=== PATIENT | female | born 1985 | race Caucasian/White ===

== ENCOUNTER 2018-08-02 12:33 | Outpatient (CLI) | payer MEDICAID, SELFPAY ==
[2018-08-02 14:10] LABS: Anion Gap 10.4 mmol/L (3-11); BUN 23 mg/dL (7-18); CO2 28.6 mmol/L (21.0-32.0); CREATININE 1.22 mg/dL (0.55-1.02); Calcium 9.4 mg/dL (8.5-10.1); Chloride 102 mmol/L (98-107); Estimated GFR 50.45 (mL/min/1.73m2); FREE T4 0.59 ng/dL (0.76-1.46); Glucose 92 mg/dL (70-100); Potassium 3.9 mmol/L (3.5-5.1); Sodium 141 mmol/L (136-145); TSH 29.25 uIU/mL (0.358-3.74)
[2018-08-02 14:26] LABS: Cholesterol 153 mg/dL (50-200); HDL Cholesterol 51 mg/dL (40-60); LDL CHOLESTEROL 75 mg/dL (<100); Triglyceride 153 mg/dL (30-150)
== END 2018-08-02 12:53 ==
PROVIDERS: PCP Nurse Practitioner Family; Visit Provider Nurse Practitioner Family
DX: E03.9 Hypothyroidism, unspecified (principal); Z13.220 Encounter for screening for lipoid disorders
CPT/HCPCS: 36415; 80048; 80061; 83721; 84439; 84443

== ENCOUNTER 2019-05-11 08:13 | Outpatient (CLI) | payer MEDICAID, SELFPAY ==
[2019-05-11 13:35] LABS: ALT 24 U/L (14-59); AST 17 U/L (15-37); Albumin 4.2 g/dL (3.4-5.0); Alkaline Phosphatase 65 U/L (46-116); BUN 13 mg/dL (7-18); Bilirubin, Total 0.5 mg/dL (0.2-1.0); CREATININE 0.96 mg/dL (0.55-1.02); Calcium 8.9 mg/dL (8.5-10.1); Chloride 106 mmol/L (98-107); FREE T4 1.07 ng/dL (0.76-1.46); Glucose 88 mg/dL (70-100); Potassium 4.8 mmol/L (3.5-5.1); Sodium 142 mmol/L (136-145); TSH 2.32 uIU/mL (0.36-3.74); Total Protein 7.5 g/dL (6.4-8.2)
== END 2019-05-11 08:33 ==
PROVIDERS: PCP Nurse Practitioner Family; Visit Provider Nurse Practitioner Family
DX: E03.9 Hypothyroidism, unspecified (principal)
CPT/HCPCS: 36415; 80053; 84439; 84443

== ENCOUNTER 2019-07-20 18:29 | Outpatient (REF) | payer MEDICAID, SELFPAY ==
--- NOTE | 2019-07-20 16:30 | PAPFT_PTH ---
PATIENT: Yamilet Lema LOC: [facility] U#:[id number] AGE/SX: 34/F ROOM: RE07/20/[address]: EDY White : 1985 BED: DIS: 07/20/2019 SPEC #: [id number] RECD: 07/20/19 18:43 STATUS: RANDI RELloyd #: [id number] ROSMERY: 07/20/19 16:[address]: Melanie Camarillo DEPT: [facility] Cytology RECD BY: Muna Negron Tissues: 1 - CX/ENDOCX FOR PAP SMEARS Procedures: PAP THIN PREP/UVM Screening HPV DNA PROBE Comments: [id number]
== END 2019-07-20 18:49 ==
LOC: LBN 18:29
PROVIDERS: PCP Nurse Practitioner Family; Visit Provider Nurse Practitioner Family
DX: Z12.4 Encounter for screening for malignant neoplasm of cervix (principal)
CPT/HCPCS: 88142; 87624

== ENCOUNTER 2021-04-24 01:11 | Outpatient (CLI) | payer MEDICAID, SELFPAY ==
[2021-04-24 12:37] LABS: Hemoglobin A1C 5.2 % (<5.7)
[2021-04-24 12:52] LABS: Anion Gap 5.2 mmol/L (3-11); BUN 19 mg/dL (7-18); CO2 30.8 mmol/L (21.0-32.0); CREATININE 1.3 mg/dL (0.55-1.02); Calcium 9.2 mg/dL (8.5-10.1); Chloride 107 mmol/L (98-107); Estimated GFR 46.09 (mL/min/1.73m2); FREE T4 0.47 ng/dL (0.76-1.46); Glucose 76 mg/dL (74-106); Potassium 3.9 mmol/L (3.5-5.1); Sodium 143 mmol/L (136-145)
[2021-04-24 12:57] LABS: TSH 37.95 uIU/mL (0.36-3.74)
== END 2021-04-24 01:12 | disposition home or self-care (01) ==
LOC: LOS 01:11
PROVIDERS: PCP Nurse Practitioner Family; Visit Provider Nurse Practitioner Family
DX: E03.9 Hypothyroidism, unspecified (principal)
CPT/HCPCS: 36415; 80048; 83036; 84439; 84443

== ENCOUNTER 2021-06-26 14:18 | Outpatient (REF) | payer MEDICAID, SELFPAY ==
[2021-06-29 15:47] LABS: Chlamydia Result Negative (Negative); GC Result Negative (Negative)
== END 2021-06-26 14:19 | disposition home or self-care (01) ==
LOC: LBN 14:18
PROVIDERS: PCP Nurse Practitioner Family; Visit Provider Nurse Practitioner Family
DX: Z11.3 Encounter for screening for infections with a predominantly sexual mode of transmission (principal)
CPT/HCPCS: 87491; 87591

== ENCOUNTER 2022-09-15 11:35 | Outpatient (CLI) | payer MEDICAID, SELFPAY ==
[2022-09-15 12:30] LABS: Abs Immature Grans 0.05 10^3/uL (0.0-0.06); Absolute Basophil Count 0.04 10^3/uL (0.0-0.2); Absolute Eosinophil Count 0.29 10^3/uL (0.0-0.7); Absolute Lymphocyte Count 2.16 10^3/uL (1.2-3.4); Absolute Monocyte Count 0.37 10^3/uL (0.1-0.8); Basophils % 0.5; HCT 42.4 % (36.0-46.0); Immature Grans % 0.7; Lymphocytes % 29.5; MCH 30.5 pg (27.0-33.0); MCV 92 fL (80-95); MPV 9.9 fL (8.0-11.0); Monocytes % 5.1; Neutrophils % 60.2; Platelet Count 276 10^3/uL (130-400); RBC 4.59 10^6/uL (3.93-5.22); RDW 13.6 % (11.7-14.6); RDW-SD 45.6 fL; WBC 7.31 10^3/uL (4.4-10.8)
[2022-09-15 12:49] LABS: ALT 26 U/L (14-59); AST 24 U/L (15-37); Albumin 4.5 g/dL (3.4-5.0); Alkaline Phosphatase 80 U/L (46-116); Anion Gap 6.8 mmol/L (3-11); BUN 16 mg/dL (7-18); Bilirubin, Total 1.1 mg/dL (0.2-1.0); CO2 31.2 mmol/L (21.0-32.0); CREATININE 1.2 mg/dL (0.55-1.02); Calcium 9.2 mg/dL (8.5-10.1); Calculated LDL 89 mg/dL (<100); Chloride 99 mmol/L (98-107); Cholesterol 230 mg/dL (<200); Estimated GFR 59.42 (mL/min/1.73m2); Glucose 87 mg/dL (74-106); HDL Cholesterol 80 mg/dL (40-60); Potassium 4.3 mmol/L (3.5-5.1); Sodium 137 mmol/L (136-145); TSH (W/Ref FT4) 69.59 uIU/mL (0.36-3.74); Total Protein 8.4 g/dL (6.4-8.2); Triglyceride 305 mg/dL (<150)
[2022-09-15 13:07] LABS: FREE T4 0.42 ng/dL (0.76-1.46)
== END 2022-09-15 11:36 | disposition home or self-care (01) ==
PROVIDERS: PCP Nurse Practitioner Family; Visit Provider Nurse Practitioner Family
DX: E03.9 Hypothyroidism, unspecified (principal); N93.9 Abnormal uterine and vaginal bleeding, unspecified
CPT/HCPCS: 36415; 80053; 80061; 84439; 84443; 85025

== ENCOUNTER 2022-09-15 12:23 | Outpatient (REF) | payer MEDICAID, SELFPAY ==
--- NOTE | 2022-09-15 11:00 | PAPFT_PTH ---
PATIENT: Yamilet Lema LOC: [facility] U#:[id number] AGE/SX: 37/F ROOM: RE09/15/[address]: EDY White : 1985 BED: DIS: 09/15/2022 SPEC #: [id number] RECD: 09/16/22 12:50 STATUS: RANDI RELloyd #: [id number] ROSMERY: 09/15/22 11:[address]: Melanie Camarillo DEPT: [facility] Cytology RECD BY: Muna Negron Tissues: 1 - CX/ENDOCX FOR PAP SMEARS Procedures: PAP THIN PREP/UVM Screening HPV DNA PROBE Comments: [id number]
== END 2022-09-15 12:24 | disposition home or self-care (01) ==
LOC: LBN 12:23
PROVIDERS: PCP Nurse Practitioner Family; Visit Provider Nurse Practitioner Family
DX: Z12.4 Encounter for screening for malignant neoplasm of cervix (principal); Z11.51 Encounter for screening for human papillomavirus (HPV)
CPT/HCPCS: 88142; 87624

== ENCOUNTER 2022-09-17 07:59 | Outpatient (CLI) | payer MEDICAID, SELFPAY ==
--- NOTE | 2022-09-17 08:00 | RT.EKG_ITS ---
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
== END 2022-09-17 08:00 | disposition home or self-care (01) ==
LOC: CARDOPNVT 07:59
PROVIDERS: PCP Nurse Practitioner Family; Visit Provider Family Medicine
DX: Z51.81 Encounter for therapeutic drug level monitoring (principal)
CPT/HCPCS: 93005; 93010

== ENCOUNTER 2022-10-15 21:47 | Outpatient (REF) | payer MEDICAID, SELFPAY ==
[2022-10-15 22:08] LABS: Bilirubin Negative (Negative); Blood Negative (Negative); Clarity Cloudy (Clear); Glucose Negative (Negative); Ketones Negative (Negative); Leukocyte Esterase Negative (Negative); Nitrite Negative (Negative); Urobilinogen 0.2 mg/dL (Up to 0.2)
== END 2022-10-15 21:48 | disposition home or self-care (01) ==
LOC: LBN 21:47
PROVIDERS: PCP Nurse Practitioner Family; Visit Provider Nurse Practitioner Family
DX: R61 Generalized hyperhidrosis (principal)
CPT/HCPCS: 81003

== ENCOUNTER 2022-10-19 01:37 | Outpatient (CLI) | payer MEDICAID, SELFPAY ==
--- NOTE | 2022-10-19 07:14 | DI.US_ITS ---
Exam(s) US ABDOMEN RENAL EXAM: US ABDOMEN RENAL CLINICAL HISTORY: abdominal pain TECHNIQUE: Ultrasound abdomen performed using standard protocol. COMPARISON: US ABDOMEN ULTRASOUND from 01/16/2010 FINDINGS: LIVER: Mildly enlarged at 17 cm in length. Mild fatty infiltration.. No focal liver lesions are see n.. GALLBLADDER: No evidence of cholelithiasis. No evidence of wall thickening. No pericholecystic fluid identified. HUMPHREY'S SIGN: Negative. BILIARY SYSTEM: No intrahepatic or extrahepatic biliary ductal dilation. KIDNEYS: Kidneys are symmetric in size. No evidence of renal calculi. No evidence of hydronephrosis. No renal mass or cyst identified. PANCREAS: Normal where visualized. SPLEEN: Not enlarged. ABDOMINAL AORTA AND IVC: Visualized portions normal caliber. ASCITES: None seen. Bladder: No evidence of wall thickening, stone or mass. Prevoid bladder volume 150 cc. No significa nt postvoid residual. Bilateral ureteral jets were visualized. IMPRESSION: Mildly enlarged liver with mild hepatic steatosis. No evidence of gallstones. Kidneys and bladder are unremarkable. DATA REPOSITORY:
== END 2022-10-19 01:57 ==
PROVIDERS: PCP Nurse Practitioner Family; Visit Provider Nurse Practitioner Family
DX: R10.9 Unspecified abdominal pain (principal); R16.0 Hepatomegaly, not elsewhere classified; K76.0 Fatty (change of) liver, not elsewhere classified
CPT/HCPCS: 76770; 76700

== ENCOUNTER 2022-11-29 19:40 | Outpatient (REF) | payer MEDICAID, SELFPAY ==
[2022-11-29 21:42] LABS: Bilirubin Negative (Negative); Blood Moderate (Negative); Clarity Sl Cloudy (Clear); Glucose Negative (Negative); Ketones Negative (Negative); Leukocyte Esterase Negative (Negative); Nitrite Negative (Negative); Specific Gravity >= 1.030 (1.005-1.025); Urobilinogen 0.2 mg/dL (Up to 0.2); pH 5.5 (5-8)
[2022-11-29 22:19] LABS: Bacteria Moderate HPF (Negative); C & S Indicated? C&S Done As Ordered; Crystals Negative HPF (Negative); Epithelial Cells Few HPF (Negative); Mucus Negative (Negative); Other Cells Rare Renal (Negative)
== END 2022-11-29 19:41 | disposition home or self-care (01) ==
LOC: LBN 19:40
PROVIDERS: PCP Nurse Practitioner Family; Visit Provider Physician Assistant
DX: R30.0 Dysuria (principal); I10 Essential (primary) hypertension; N39.0 Urinary tract infection, site not specified
CPT/HCPCS: 81003; 81015; 87086

== ENCOUNTER 2022-11-30 12:06 | Outpatient (CLI) | payer MEDICAID, SELFPAY ==
[2022-11-30 09:31] LABS: Eosinophils % 4.3; HCT 42.4 % (36.0-46.0); HGB 14.4 g/dL (11.2-15.7); MCH 31.9 pg (27.0-33.0); MCV 94 fL (80-95); MPV 9.8 fL (8.0-11.0); Monocytes % 4.5; Neutrophils % 56.8; Platelet Count 265 10^3/uL (130-400); RBC 4.51 10^6/uL (3.93-5.22); RDW 13.9 % (11.7-14.6); RDW-SD 48.1 fL; WBC 6.22 10^3/uL (4.4-10.8)
[2022-11-30 09:32] LABS: Abs Immature Grans 0.04 10^3/uL (0.0-0.06); Absolute Basophil Count 0.05 10^3/uL (0.0-0.2); Absolute Eosinophil Count 0.27 10^3/uL (0.0-0.7); Absolute Lymphocyte Count 2.05 10^3/uL (1.2-3.4); Absolute Monocyte Count 0.28 10^3/uL (0.1-0.8); Absolute Neutrophil Count 3.53 10^3/uL (1.2-6.7); Basophils % 0.8; Immature Grans % 0.6
[2022-11-30 10:25] LABS: ALT 37 U/L (14-59); AST 32 U/L (15-37); Albumin 3.9 g/dL (3.4-5.0); Alkaline Phosphatase 88 U/L (46-116); Anion Gap 10.3 mmol/L (3-11); BUN 18 mg/dL (7-18); Bilirubin, Total 0.5 mg/dL (0.2-1.0); CO2 28.7 mmol/L (21.0-32.0); CREATININE 1.1 mg/dL (0.55-1.02); Calcium 8.7 mg/dL (8.5-10.1); Chloride 101 mmol/L (98-107); Estimated GFR 65.96 (mL/min/1.73m2); Glucose 101 mg/dL (74-106); Potassium 3.7 mmol/L (3.5-5.1); Sodium 140 mmol/L (136-145); Total Protein 8.3 g/dL (6.4-8.2)
[2022-11-30 10:54] LABS: TSH (W/Ref FT4) 31.62 uIU/mL (0.36-3.74)
[2022-11-30 11:20] LABS: FREE T4 0.58 ng/dL (0.76-1.46)
[2022-12-01 10:06] LABS: HIV-1/2 Ag & Ab Screen Negative (Negative)
[2022-12-01 10:19] LABS: Hepatitis C Ab w Rflx HCV PCR Negative (Negative)
== END 2022-11-30 12:07 | disposition home or self-care (01) ==
LOC: LBO 12:07
PROVIDERS: PCP Nurse Practitioner Family; Visit Provider Physician Assistant
DX: E03.9 Hypothyroidism, unspecified (principal); I10 Essential (primary) hypertension; R61 Generalized hyperhidrosis; Z11.4 Encounter for screening for human immunodeficiency virus [HIV]; Z11.59 Encounter for screening for other viral diseases; E78.5 Hyperlipidemia, unspecified
CPT/HCPCS: 36415; 80053; 86803; 87040; 87389; 84439; 84443; 85025

== ENCOUNTER 2023-01-04 15:05 | Emergency (ER) | payer MEDICAID, SELFPAY ==
[2023-01-04] VITALS (51 sets, daily range): BP systolic 140–178; BP diastolic 88–119; PULSE 86–92; RESP 12–24; TEMP 36.5; O2SAT 100
--- NOTE | 2023-01-04 15:00 | RT.EKG_ITS ---
APPROVED REPORT Exam: Resting ECG Reason for Exam: chest pain Patient Location: E HR:82 bpm ECG Measurements Heart Rate 82 AXIS VT 161 P 42 QRSd 90 QRS 21 QT 397 T -20 QTc 464 Conclusion Sinus rhythm...normal P axis, V-rate 60- 99 Probable left atrial enlargement...P >50mS, <-0.10mV V1 Nonspecific T abnormalities, anterior leads...T <-0.10mV, V2-V4 Narrow complex normal sinus rhythm at a rate of 82. Normal axis. T wave inversions leads III, aVF, V3 and V4. Mild ST segment depressions left chest wall leads. Compared to prior dated earlier this year T wave inversions in lead aVF, V3 and V4 are new. Mild ST segment depressions in V4 and V5 appe ar similar. QTc within normal limits.
--- NOTE | 2023-01-04 15:05 | ED.GENADUL_ITS ---
Discharge Plan Disposition Patient Disposition: Transfer-Acute Inpatient Care Specific Acute Inpt Facility: [facility] Discharge Details Clinical Impression: Acute epigastric pain, Elevated LFTs, Acute hemorrhagic pancreatitis, Acute lactic acidosis, Hypocalcemia Primary Care Provider: Melanie Camarillo ED Provider: Dino New Home Meds and New Rx's Prescriptions: No Action methadone 10 mg/5 mL solution 130 mg PO DAILY losartan 100 mg tablet 100 mg PO DAILY Qty: 90 3RF famotidine 20 mg tablet 20 mg PO DAILY Qty: 90 0RF amlodipine 5 mg tablet 5 mg PO DAILY Qty: 90 3RF epinephrine 0.3 mg/0.3 mL auto-injector 0.3 mg IM ONCE Qty: 1 2RF Rx Instructions: as a single dose; may repeat once levothyroxine 125 mcg capsule 125 mcg PO DAILY Qty: 90 0RF promethazine 12.5 mg tablet 12.5 - 25 mg PO TID PRN (Reason: nausea and vomiting) Qty: 90 0RF Discharge Data Discharge Date/Time-TO BE ENTERED AT DEPARTURE: 01/04/23 19:10 Medical Decision Making This is a hypertensive & uncomfortable appearing 37-year-old female now with acute sudden onset sharp epigastric pain concerning for the possibility of aortic dissection. She did have some ECG depressions and given her elevated BMI it ACS is also a possibility though the patient lacks risk factors beyond hypertension and obesity. No rash to abdomen to suggest zoster. No history of recent trauma. Based on elevated BMI pancreatitis is certainly also a possibility though patient is not reportedly a heavy drinker. Not recently to suggest splenic arterial aneurysm. She has a remote history of section so SBO is also a possibility. No reported shortness of breath nor chest pain to suggest PE. No dysuria no frequency to suggest UTI. No calf pain so I am not concerned for DVT. 4:10 PM Lipase mildly elevated at 169. Negative troponin. Elevated anion gap. Very mild hyperglycemia not consistent with DKA. Patient does have a decreased bicarbonate concerning for lactic acidosis. Patient still nauseous for left I will order her 500 additional cc of crystalloid along with 10 mg of metoclopramide. hCG negative. CBC with no anemia thrombocytopenia nor leukocytosis. 5:15 PM Lactic acidosis with a serum lactate of 3.4. 5:30 PM I received a call from the blood bank and patient can only receive reportedly O- blood. Unfortunate we do not have any O- blood until 7 PM this evening. 5:52 PM Repeat hemoglobin slightly down trended to 14.5 from 15.5 following 1 L of IV fluids. [facility] gastroenterology has advised surgical consult which transfer center will complete. 6:05 PM I received call back from [facility] transfer center and spoke with Dr. Familia Verma from general surgery. He graciously agreed to accept the patient to the emergency department at [facility]. I have ordered her additional fentanyl and started her on maintenance fluids at 150 cc an hour. We will update patient on the plan of care. We will attempt to have the patient transferred via medic. Lactate improved from 3.4-2.3 with fluids. Basic metabolic panel showed mild worsened renal function but similar to prior. Improved anion gap. Normal bicarbonate. Worsened hypocalcemia for which patient will receive 2 g of IV calcium gluconate. Chronic conditions affecting the care of the patient: Hypertension and elevated BMI History obtained from an outside historian: Paramedics External record review: [facility] EMR Diagnostic interpretations performed by me: Per my independent interpretation EKG shows: Narrow complex normal sinus rhythm at a rate of 82. Normal axis. T wave inversions leads III, aVF, V3 and V4. Mild ST segment depressions left chest wall leads. Compared to prior dated earlier this year T wave inversions in lead aVF, V3 and V4 are new. Mild ST segment depressions in V4 and V5 appear similar. QTc within normal limits. Medications: Hydromorphone and ondansetron. Social determinants of health affecting disposition: N/A Management discussed with: Dr. Verma general surgery at [facility] Treatment/interventions considered: Conservative local hospitalization but transferred in the event the patient requires IR intervention. Response to therapies provided: Improved pain on IV analgesia HPI General Date/Time Provider Initiated Documentation: 01/04/23 15:17 . HPI Narrative: This is a 37-year-old female with a history of epigastric pain that began this morning. Patient describes sudden onset sharp epigastric pain. It caused her to vomit 3 times this morning. She has not had any recent fevers. She denies any diarrhea. Surgical history significant for remote section. She has a history of hypertension but not hyperlipidemia nor diabetes. She denies routine tobacco, she reports rarely drinking ethanol. She describes a sharp stabbing tightness. She received 100 mcg of fentanyl and 4 mg of ondansetron with paramedics. She denies dysuria and frequency. She has taken no falls to her abdomen. She has no chest pain. There is no family history of any premature coronary artery disease. She has not noticed any rashes to her abdomen. Related Data Home Medications Medication Instructions Recorded Confirmed epinephrine 0.3 mg/0.3 mL 0.3 mg (0.3 mL) IM ONCE #1 ea 07/30/20 01/04/23 injection, auto-injector methadone 10 mg/5 mL oral solution 130 mg PO DAILY 09/15/22 01/04/23 levothyroxine 125 mcg capsule 125 mcg PO DAILY #90 tab-caps 12/02/22 01/04/23 promethazine 12.5 mg tablet 12.5 - 25 mg PO TID PRN nausea and 12/07/22 01/04/23 vomiting #90 tabs famotidine 20 mg tablet 20 mg PO DAILY #90 tabs 12/10/22 01/04/23 losartan 100 mg tablet 100 mg PO DAILY #90 tabs 12/10/22 01/04/23 amlodipine 5 mg tablet 5 mg PO DAILY #90 tabs 12/24/22 01/04/23 Previous Rx's Medication Instructions Recorded epinephrine 0.3 mg/0.3 mL 0.3 mg (0.3 mL) IM ONCE #1 ea 07/30/20 injection, auto-injector levothyroxine 125 mcg capsule 125 mcg PO DAILY #90 tab-caps 12/02/22 promethazine 12.5 mg tablet 12.5 - 25 mg PO TID PRN nausea and 12/07/22 vomiting #90 tabs famotidine 20 mg tablet 20 mg PO DAILY #90 tabs 12/10/22 losartan 100 mg tablet 100 mg PO DAILY #90 tabs 12/10/22 amlodipine 5 mg tablet 5 mg PO DAILY #90 tabs 12/24/22 Allergies Allergy/AdvReac Type Severity Reaction Status Date / Time venom-honey bee Allergy Severe ANAPHYLAXSI Verified 12/24/22 10:23 [bee venom (honey bee)] S [facility] All Active Problems (Updated 01/04/23 @ 18:21 by Dino New MD) Acute epigastric pain (Acute) Elevated LFTs (Acute) Acute hemorrhagic pancreatitis (Acute) Acute lactic acidosis (Acute) Hypocalcemia (Acute) GERD (gastroesophageal reflux disease) (Chronic) Fatty liver disease, nonalcoholic (Chronic) Hypertension (Chronic) CKD (chronic kidney disease) stage 3, GFR 30-59 ml/min (Acute) Opioid use disorder (Chronic) Methadone through [facility] Hypothyroidism (Chronic) Generalized anxiety disorder (Chronic) Medical History Major depressive disorder Temporomandibular joint disorder Surgical History History of section (05/28/14) Family History Mother Alcohol abuse Depression Father Alcohol abuse Substance abuse Sister Depression Sister Substance abuse Depression Son No problems noted. Son No problems noted. Maternal Grandfather Colon cancer Skin cancer (melanoma) Type 2 diabetes mellitus Heart disease Maternal Grandmother Heart disease SLE (systemic lupus erythematosus) Osteoporosis Paternal Grandfather No problems noted. Paternal Grandmother No problems noted. 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 Pets and animals: Yes Pets and animals: cat(s), dog(s), hamster(s) and farm animals Sexually active: Yes Do you think of yourself as: straight/heterosexual Current gender identity: female What is your relationship status?: living with partner How often do you talk on the phone with friends or family?: three or more times per week How often do you get together with friends or relatives?: once per week How often do you attend episcopalian or samaritan services?: 1-3 times per year Do you belong to any clubs or organized social groups?: no Panel score (0-1 are the most socially isolated patients): 2 What type of physical activity do you participate in: none Duration: 15-30 minutes/day Frequency: 5-6 times per week Eloisa/Judaism: Buddhist Special eloisa needs: No Seatbelt use: always Do you feel safe in your relationship?: Yes Female Reproductive History Menstrual control method: natural family planning History History 1 Para Hx # Term Pregnancies Multiple births 1 Hx # Pregnancies Ectopic pregnancies AB induced Hx Number of Living Children 2 AB spontaneous Exam Narrative Exam Narrative: General: Uncomfortable appearing-appearing in no acute distress speaking in complete sentences. Mildly diaphoretic. Head: Normocephalic, atraumatic. Eye: Extraocular eye movements intact. No conjunctival injection. No scleral icterus. Ear, nose, mouth, throat: Grossly normal inspection. Normal voice, handling secretions normally. Neck: Trachea midline. Cardiovascular: Well-perfused distal extremities. Regular rate and rhythm. Respiratory: Nonlabored respiration. Clear lungs bilaterally. Gastrointestinal: Nondistended abdomen. Moderate epigastric tenderness. No rebound. No guarding. Musculoskeletal: No edema. Moving all 4 extremities spontaneously. Skin: Normal for age and race, grossly normal temperature and turgor. No acute rash. Neurologic: Alert and appropriate, no apparent acute deficits. Psychiatric: Mood and manner are appropriate. Grooming and personal hygiene are appropriate. Critical Care Time Critical Care Time Critical Care Time: Yes Total Critical Care Time: 30 Attestation: Bedside assessment and consultation with surgery at [facility].
--- NOTE | 2023-01-04 15:17 | DI.CT_ITS ---
Exam(s) CT THORAX ABD/PEL CTA EXAM: CT THORAX ABD/PEL CTA CLINICAL HISTORY: sharp epigastric pain. TECHNIQUE: Imaging Protocol: Axial computed tomography images with coronal and sagittal reformatted images were created and reviewed CONTRAST MATERIAL: Intravenous: Omnipaque 350 Contrast volume:100 ml Oral: None COMPARISON: No exams were available for comparison FINDINGS: CHEST: AORTA: There is no evidence of aortic dissection nor pericardial effusion. Diameter of the ascending thoracic aorta is upper normal. Diameter of the arch is upper normal. Diameter of the descending t horacic aorta is upper normal. There is no evidence of abdominal aortic aneurysm. SMA and the derian c and MIGDALIA high arteries are patent. Renal arteries are patent. Aortic bifurcation is patent. Iliac arteries are patent and nonaneurysmal. Common femoral arteries are patent and nonaneurysmal. Visua lized proximal SFA arteries are patent. CARDIAC: Heart size is normal. There is no pericardial effusion. LUNGS: Mild increased benign markings in the inferior lingular segment of the left lung. Remainder o f the lungs are clear. There are no pleural effusions. No pneumothorax. No significant focal findi ngs in the trachea and mainstem bronchi.. MEDIASTINUM: There is no hilar nor mediastinal adenopathy. Visualized thyroid unremarkable. ABDOMEN: There is no evidence of abdominal aortic aneurysm nor dissection.There is no aneurysmal dilatation of the common iliac arteries.The celiac and superior mesenteric arteries are patent. LIVER: Liver is enlarged and hypodense implying steatosis. There is a rapidly enhancing lesion in th e right hepatic lobe which measures 1.2 x 1.2 cm, probably an incidental hemangioma. No other focal hepatic lesions nor cysts. No dilated intrahepatic ducts. GALLBLADDER/BILIARY: No obvious gallbladder pathology. CBD diameter slightly prominent. No obvious radiopaque calculi seen in the lower CBD. PANCREAS: The entire head and uncinate process of the pancreas are diffusely and abnormally hypodens e and extremely edematous and there is surrounding fluid which also surrounds the duodenal C-loop. T here are body and tail the pancreas appear unremarkable. Pancreatic duct is not dilated. No pancrea tic calcifications. Celiac and common hepatic as well as splenic artery are patent. The gastroduode nal artery is patent and there is there is no obvious pseudoaneurysm of the gastroduodenal artery. T here is intraluminal hypodensity in the superior mesenteric vein and portal vein confluence and main portal vein which I suspect is due to admixture of opacified blood and non-opacified blood (as oppose d to intraluminal thrombus). There is no regional lymphadenopathy. SPLEEN: Spleen is not enlarged. There are no intrasplenic lesions. Splenic and portal veins are rogel nt. ADRENALS: There are no significant adrenal masses. KIDNEYS: No cysts evident. No calculi nor hydronephrosis. No solid renal masses. ABDOMINAL AORTA: The abdominal aorta is not enlarged. LYMPH NODES: There is no retroperitoneal nor para-aortic adenopathy. No obvious mesenteric masses. ABDOMINAL WALL: Diastasis rectus evident. GI: No bowel obstruction. Colon is mostly collapsed. PELVIS: LYMPH NODES: There is no intrapelvic nor inguinal adenopathy. GI: No evidence of appendicitis.No evidence of sigmoid diverticulitis. URINARY BLADDER: No calculi nor masses evident. Not distended. REPRODUCTIVE: Uterus and ovaries age-appropriate. No free fluid in the cul-de-sac at this time. OSSEOUS: No significant osseous lesions. No fractures. IMPRESSION: 1. Findings are consistent with acute severely edematous and hemorrhagic pancreatitis of the pancreat ic head, neck, and uncinate process. There does not appear to be an obvious pseudoaneurysm of the ga stroduodenal artery. 2. There is no obvious radiopaque calculus in the CBD. CBD diameter is minimally prominent. There i s prominent amount of fluid around the severely affected pancreatic head as well as around the duoden al C-loop. 3. Incidentally noted is a rapidly enhancing lesion in the right hepatic lobe which measures 1.2 x 1. 2 cm and is probably an incidental hemangioma. 4. No evidence of aortic dissection (as per request) and no evidence of pericardial effusion. Discussed by phone with ER physician. RADIATION DOSE DELIVERED: 1,335.6mGy.cm Total DLP DATA REPOSITORY: All CT scans at this facility are submitted to the National Radiology Data Registry (NRDR) Dose Index Registry (DIR) with the [employer] (ACR). RADIATION OPTIMIZATION: All CT scans at this facility use at least one of these dose optimization te chniques: automated exposure control; mA and/or kV adjustment per patient size (includes targeted exa ms where dose is matched to clinical indication); or iterative reconstruction.
[2023-01-04] MEDS: HYDROmorphone 2 MG/ML SYR 0.5 MG IVP ×2 (15:32→16:07)
[2023-01-04] MEDS: Ondansetron 4 MG/2 ML VIAL IVP (15:33)
[2023-01-04] MEDS: Normal Saline 500 ML IV ×2 (15:33→16:25)
--- NOTE | 2023-01-04 15:33 | NUR.NOTE ---
pt becoming diaphoretic. pt remains HTN, 1 episode of vomiting at this time. MD Virgen harris
[2023-01-04 15:34] LABS: Abs Immature Grans 0.05 10^3/uL (0.0-0.06); Absolute Basophil Count 0.04 10^3/uL (0.0-0.2); Absolute Eosinophil Count 0.02 10^3/uL (0.0-0.7); Absolute Lymphocyte Count 2.62 10^3/uL (1.2-3.4); Absolute Monocyte Count 0.54 10^3/uL (0.1-0.8); Absolute Neutrophil Count 6.65 10^3/uL (1.2-6.7); Basophils % 0.4; Eosinophils % 0.2; HCT 44.1 % (36.0-46.0); HGB 15.5 g/dL (11.2-15.7); Immature Grans % 0.5; Lymphocytes % 26.4; MCH 33.7 pg (27.0-33.0); MCHC 35.1 % (32.0-36.0); MCV 96 fL (80-95); MPV 10.3 fL (8.0-11.0); Monocytes % 5.4; Neutrophils % 67.1; Platelet Count 296 10^3/uL (130-400); RDW-SD 49.6 fL; WBC 9.92 10^3/uL (4.4-10.8)
[2023-01-04 15:52] LABS: HCG Qual (Serum) Negative
[2023-01-04] MEDS: Omnipaque 350 MG/ML 100 ML BTL IJ (15:55)
[2023-01-04 16:03] LABS: Albumin 3.5 g/dL (3.4-5.0); Alkaline Phosphatase 89 U/L (46-116); Anion Gap 22.4 mmol/L (3-11); BUN 19 mg/dL (7-18); Bilirubin, Total 1.4 mg/dL (0.2-1.0); CO2 15.6 mmol/L (21.0-32.0); Chloride 97 mmol/L (98-107); Estimated GFR 49.39 (mL/min/1.73m2); Glucose 196 mg/dL (74-106); Lipase 169 U/L (16-77); Potassium 3.5 mmol/L (3.5-5.1); Sodium 135 mmol/L (136-145)
[2023-01-04 16:05] LABS: Troponin I < 50 ng/L (<or=60)
--- NOTE | 2023-01-04 16:07 | NUR.NOTE ---
this RN accompanied pt to CT on color television console monitor
[2023-01-04] MEDS: fentaNYL 100 MCG/2 ML VIAL IVP ×2 (16:20→18:31)
[2023-01-04] MEDS: Metoclopramide 10 MG/2 ML VIAL IVP (16:20)
[2023-01-04 16:24] LABS: ALT 94 U/L (14-59); AST 245 U/L (15-37); CREATININE 0.7 mg/dL (0.55-1.02); Total Protein 5.2 g/dL (6.4-8.2)
[2023-01-04 17:06] LABS: Lactate 3.4 mmol/L (0.6-1.4)
[2023-01-04] MEDS: fentaNYL 100 MCG/2 ML VIAL 75 MCG IVP (17:27)
[2023-01-04 17:33] LABS: HCT 41.3 % (36.0-46.0); HGB 14.5 g/dL (11.2-15.7)
[2023-01-04 18:12] LABS: Lactate 2.3 mmol/L (0.6-1.4)
[2023-01-04 18:14] LABS: Anion Gap 11.6 mmol/L (3-11); BUN 19 mg/dL (7-18); CO2 26.4 mmol/L (21.0-32.0); CREATININE 1.2 mg/dL (0.55-1.02); Calcium 7.8 mg/dL (8.5-10.1); Chloride 98 mmol/L (98-107); Estimated GFR 59.42 (mL/min/1.73m2); Glucose 177 mg/dL (74-106); Potassium 3.7 mmol/L (3.5-5.1); Sodium 136 mmol/L (136-145)
[2023-01-04] MEDS: Calcium Gluconate 4.65 MEQ/10 ML VIAL 9.3 MG IVP (18:39)
[2023-01-04] MEDS: Normal Saline 100 ML 200 ML (18:41)
[2023-01-04 19:03] LABS: Troponin I < 50 ng/L (<or=60)
== END 2023-01-04 19:10 | disposition short-term general hospital (02) ==
LOC: ER 17:31
PROVIDERS: Emergency Provider Emergency Medicine; PCP Nurse Practitioner Family
DX: K85.80 Other acute pancreatitis without necrosis or infection (principal); K86.89 Other specified diseases of pancreas; E83.51 Hypocalcemia; E87.21 Acute metabolic acidosis; R79.89 Other specified abnormal findings of blood chemistry; R10.13 Epigastric pain; I10 Essential (primary) hypertension
CPT/HCPCS: 36415; 71275; 80048; 80053; 83690; 86850; 86900; 86901; 93005; 96374; 96375; 96376; 99291; 74174; 83605; 84484; 84703; 85014; 85018; 85025; 86870; 93010; J0612; J1170; J2405; J2765; J3010; J3490

== ENCOUNTER 2023-02-01 02:02 | Outpatient (CLI) | payer MEDICAID, SELFPAY ==
[2023-02-01 13:20] LABS: Abs Immature Grans 0.02 10^3/uL (0.0-0.06); Absolute Basophil Count 0.03 10^3/uL (0.0-0.2); Absolute Eosinophil Count 0.27 10^3/uL (0.0-0.7); Absolute Lymphocyte Count 1.38 10^3/uL (1.2-3.4); Absolute Monocyte Count 0.29 10^3/uL (0.1-0.8); Absolute Neutrophil Count 1.99 10^3/uL (1.2-6.7); Basophils % 0.8; Eosinophils % 6.8; HCT 27.2 % (36.0-46.0); HGB 8.6 g/dL (11.2-15.7); Immature Grans % 0.5; Lymphocytes % 34.7; MCH 31.6 pg (27.0-33.0); MCHC 31.6 % (32.0-36.0); MCV 100 fL (80-95); MPV 9.7 fL (8.0-11.0); Monocytes % 7.3; Neutrophils % 49.9; Platelet Count 466 10^3/uL (130-400); RBC 2.72 10^6/uL (3.93-5.22); RDW-SD 50.9 fL; WBC 3.98 10^3/uL (4.4-10.8)
[2023-02-01 15:02] LABS: ALT 21 U/L (14-59); AST 17 U/L (15-37); Albumin 3.4 g/dL (3.4-5.0); Alkaline Phosphatase 114 U/L (46-116); Anion Gap 9.9 mmol/L (3-11); BUN 9 mg/dL (7-18); Bilirubin, Total 0.4 mg/dL (0.2-1.0); CO2 29.1 mmol/L (21.0-32.0); CREATININE 1.2 mg/dL (0.55-1.02); Calcium 9.3 mg/dL (8.5-10.1); Chloride 104 mmol/L (98-107); Estimated GFR 59.42 (mL/min/1.73m2); Glucose 90 mg/dL (74-106); Potassium 3.3 mmol/L (3.5-5.1); Sodium 143 mmol/L (136-145); TSH (W/Ref FT4) 10.27 uIU/mL (0.36-3.74); Total Protein 7.8 g/dL (6.4-8.2)
[2023-02-01 15:21] LABS: FREE T4 0.96 ng/dL (0.76-1.46)
== END 2023-02-01 02:03 | disposition home or self-care (01) ==
LOC: LBO 02:02
PROVIDERS: PCP Nurse Practitioner Family; Visit Provider Nurse Practitioner Family
DX: R79.89 Other specified abnormal findings of blood chemistry (principal); E03.9 Hypothyroidism, unspecified; R10.13 Epigastric pain
CPT/HCPCS: 36415; 80053; 84439; 84443; 85025

== ENCOUNTER → 2023-04-26 03:01 | Outpatient (CLI) | payer MEDICAID, SELFPAY ==
--- NOTE | 2023-04-26 06:45 | DI.CT_ITS ---
Exam(s) CT ABDOMEN PELVIS W EXAM: CT ABDOMEN PELVIS W CLINICAL HISTORY: increasing upper abd pain,acute pancreatitis,r10.10,k85.90 TECHNIQUE: Imaging Protocol: Axial computed tomography images with coronal and sagittal reformatted images were created and reviewed CONTRAST MATERIAL: Intravenous: Omnipaque 350 Contrast volume:100 mL Oral: Yes COMPARISON: CT CT THORAX ABD/PEL CTA from 01/04/2023 FINDINGS: ABDOMEN: Lung Bases: Normal where visualized. Liver: There is fatty infiltration of the liver. No suspicious hepatic masses are seen. There is he patomegaly. Portal, Superior Mesenteric, and Splenic Veins: Unremarkable. Gallbladder and Biliary Tract: No gallstones. The common duct measures 1.2 cm. No choledocholithias is is appreciated. Pancreas: There is heterogeneous enhancement of the head of the pancreas. It has decreased in size c ompared to the examination from 01/04/2023. There are however peripancreatic fluid collections which now have developed. There is a an elongated fluid collection inferior to the body and tail of the pa ncreas extending into the left upper quadrant. It measures 11 cm transverse by 3.1 cm AP x 15.8 cm c raniocaudad. There is a 2nd collection seen in the right abdomen which may communicate with the 1st but measures 13.1 cm transverse by 9.4 cm AP x 18 cm craniocaudad. These likely reflect pseudocyst. Abscesses cannot be excluded. Spleen: Normal. Adrenals: No masses seen. Kidneys: Normal size, contour and axis. No radiodense stones or obstructive uropathy. No masses seen. Abdominal Aorta: Abdominal portion non-dilated. Bowel: There is no evidence of obstruction. There is mild thickening of the wall of the duodenum in t he proximal jejunum likely secondary to the adjacent pancreatic inflammation. Appendix is unremarkabl e. Peritoneal Cavity: There is a small amount of perisplenic ascites. No free air. Lymph Nodes: Within normal limits. Bones: Within normal limits for the patient's age. Soft Tissues: Unremarkable. PELVIS: Bladder: Symmetric distention, no gross wall thickening. Reproductive Organs: Unremarkable as visualized. Lymph Nodes: Within normal limits. Bones: Within normal limits for the patient's age. IMPRESSION: 1. Heterogeneity of the head of the pancreas which has improved since the prior examination. There is dilatation of the extrahepatic common bile duct. Differential considerations include acute versus ch ronic pancreatitis. Pancreatic head mass should also be considered. MRCP/ERCP should be considered fo r further evaluation. 2. Interval development of 2 large fluid collections emanating from the region the pancreas most like ly reflecting pseudocysts or abscesses. The largest is in the right and measures 13.1 x 9.4 x 18 cm. The smaller left measures 11 x 3.1 x 15.8 cm. These may communicate around the region of the body of the pancreas. 3. Mild wall thickening involving the duodenum or proximal jejunum likely secondary to the adjacent p ancreatic inflammation. 4. Trace amount of perisplenic ascites. 5. Findings were discussed with Cherise Chambers at 9:50 a.m. on 04/26/2023. RADIATION DOSE DELIVERED: 1,097.4mGy.cm Total DLP DATA REPOSITORY: All CT scans at this facility are submitted to the National Radiology Data Registry (NRDR) Dose Index Registry (DIR) with the [employer] (ACR). RADIATION OPTIMIZATION: All CT scans at this facility use at least one of these dose optimization te chniques: automated exposure control; mA and/or kV adjustment per patient size (includes targeted exa ms where dose is matched to clinical indication); or iterative reconstruction.
[2023-04-26] MEDS: Barium Sulfate 2% W/V-Berry Smoothie 450 ML BTL 900 ML PO (07:17)
[2023-04-26 08:04] LABS: Anion Gap 7.8 mmol/L (3-11); BUN 8 mg/dL (7-18); CO2 31.2 mmol/L (21.0-32.0); CREATININE 0.9 mg/dL (0.55-1.02); Calculated LDL 86 mg/dL (<100); Chloride 100 mmol/L (98-107); Cholesterol 155 mg/dL (<200); Glucose 110 mg/dL (74-106); HDL Cholesterol 31 mg/dL (40-60); Potassium 3.3 mmol/L (3.5-5.1); Sodium 139 mmol/L (136-145); TSH (W/Ref FT4) 46.51 uIU/mL (0.36-3.74); Triglyceride 194 mg/dL (<150)
[2023-04-26 08:30] LABS: Abs Immature Grans 0.08 10^3/uL (0.0-0.06); Absolute Basophil Count 0.03 10^3/uL (0.0-0.2); Absolute Eosinophil Count 0.18 10^3/uL (0.0-0.7); Absolute Lymphocyte Count 1.47 10^3/uL (1.2-3.4); Absolute Neutrophil Count 3.98 10^3/uL (1.2-6.7); Basophils % 0.5; HGB 14.5 g/dL (11.2-15.7); Immature Grans % 1.3; Lymphocytes % 24.3; MCH 27.9 pg (27.0-33.0); MCHC 31.5 % (32.0-36.0); MCV 89 fL (80-95); MPV 11.2 fL (8.0-11.0); Neutrophils % 65.9; Platelet Count 397 10^3/uL (130-400); RBC 5.19 10^6/uL (3.93-5.22); RDW 15.4 % (11.7-14.6); RDW-SD 50.4 fL; WBC 6.04 10^3/uL (4.4-10.8)
[2023-04-26] MEDS: Normal Saline Flush 10 ML SYR IVP (09:04)
[2023-04-26] MEDS: Normal Saline - Diluent 50 ML VIAL IJ (09:05)
[2023-04-26] MEDS: Omnipaque 350 MG/ML 500 ML BTL-Imaging package IJ (09:08)
== END ==
PROVIDERS: PCP Nurse Practitioner Family; Visit Provider Nurse Practitioner Family
DX: K85.90 Acute pancreatitis without necrosis or infection, unspecified (principal); E03.9 Hypothyroidism, unspecified; F41.1 Generalized anxiety disorder; I10 Essential (primary) hypertension; K21.9 Gastro-esophageal reflux disease without esophagitis; K76.0 Fatty (change of) liver, not elsewhere classified; N18.30 Chronic kidney disease, stage 3 unspecified; E78.5 Hyperlipidemia, unspecified
CPT/HCPCS: 80048; 80061; 74177; 84439; 84443; 85025

== ENCOUNTER 2023-05-05 13:13 | Inpatient (IN) | payer MEDICAID, SELFPAY ==
[2023-05-05] VITALS (63 sets, daily range): BP systolic 101–174; BP diastolic 71–107; PULSE 46–106; RESP 14–23; TEMP 36.8; O2SAT 88–98
--- NOTE | 2023-05-05 13:30 | DI.CT_ITS ---
Exam(s) CT ABDOMEN PELVIS W EXAM: CT ABDOMEN PELVIS W CLINICAL HISTORY: Abdominal pain, history of pancreatitis TECHNIQUE: Imaging Protocol: Axial computed tomography images with coronal and sagittal reformatted images were created and reviewed CONTRAST MATERIAL: Intravenous: Omnipaque 350 Contrast volume:100 mL Oral: No COMPARISON: Comparison is made with prior examinations. FINDINGS: ABDOMEN: Lung Bases: There is bilateral basilar atelectasis. Liver: There is diffuse decreased attenuation of the liver consistent with fatty infiltration. No me asurable mass. Portal, Superior Mesenteric, and Splenic Veins: Unremarkable. Gallbladder and Biliary Tract: No cholelithiasis. No change in the size of the extrahepatic bile amber ts. Pancreas: There is persistent heterogeneity in the head of the pancreas. There is atrophy of the bod y and tail of the pancreas. There are persistent peripancreatic fluid collections. The 1 associated with the tail of the pancreas measures 11 cm transverse by 2.6 cm AP x 13.6 cm craniocaudad. This i s shown very slight decrease in size compared to the prior examination. The 2nd collection in the ri ght abdomen measures 11.8 x 7.2 x 17.1 cm. This also shows very minimal decrease in size compared to the prior examination. Spleen: Normal. Adrenals: No masses seen. Kidneys: Normal size, contour and axis. No radiodense stones or obstructive uropathy. No masses seen. Abdominal Aorta: Abdominal portion non-dilated. Bowel: There is mild thickening of the wall of the stomach likely secondary to the pancreatic inflamm ation. There is no evidence of bowel obstruction. There is no evidence of appendicitis. Peritoneal Cavity: There is a small amount of abdominal and pelvic ascites. This has increased since the prior examination. No free air. Lymph Nodes: Within normal limits. Bones: Within normal limits for the patient's age. Soft Tissues: Unremarkable. PELVIS: Bladder: Symmetric distention, no gross wall thickening. Reproductive Organs: Unremarkable as visualized. Lymph Nodes: Within normal limits. Bones: Within normal limits for the patient's age. IMPRESSION: 1. Findings consistent with acute pancreatitis with 2 large cirrhosis. Very little change in size of the pseudocyst has occurred since the prior examination from 04/26/2023. There has been a slight inc rease in the abdominal and pelvic ascites. 2. Thickening of the wall of the stomach likely secondary to the adjacent pancreatic inflammation. 3. Findings were discussed with Muna Merchant at 5:09 p.m. on 05/05/2023. RADIATION DOSE DELIVERED: 537.88 mGy.cm Total DLP DATA REPOSITORY: All CT scans at this facility are submitted to the National Radiology Data Registry (NRDR) Dose Index Registry (DIR) with the [employer] (ACR). RADIATION OPTIMIZATION: All CT scans at this facility use at least one of these dose optimization te chniques: automated exposure control; mA and/or kV adjustment per patient size (includes targeted exa ms where dose is matched to clinical indication); or iterative reconstruction.
--- NOTE | 2023-05-05 13:36 | ED.GENADUL_ITS ---
Discharge Plan Discharge Details Chief Complaint: Abd Prob Primary Care Provider: Cherise Chambers ED Provider: Khushboo Hall Home Meds and New Rx's Prescriptions: No Action methadone 10 mg/5 mL solution 130 mg PO DAILY losartan 100 mg tablet 100 mg PO DAILY Qty: 90 3RF levothyroxine 125 mcg capsule 125 mcg PO DAILY Qty: 90 0RF famotidine 40 mg tablet 40 mg PO DAILY Qty: 90 3RF amlodipine 2.5 mg tablet 2.5 mg PO DAILY Qty: 90 3RF epinephrine 0.3 mg/0.3 mL auto-injector 0.3 mg IM ONCE Qty: 1 2RF Rx Instructions: as a single dose; may repeat once Medical Decision Making 38-year-old female with a past medical history of pancreatitis, GERD hypertension fatty liver disease, chronic kidney disease opioid use disorder and hypothyroidism presents to the ER with a chief complaint of left upper abdominal pain which has worsened over the last couple of days. She did vomit prior to arrival while at work. She reports that she is waiting to see a specialist at [facility]. She did have a CT on 26 April which showed some increased fluid around her pancreas. She does endorse 2-3 shots of alcohol a day. She did not drink yesterday. She denies any fever . dysuria, or diarrhea. Past surgical history includes . Workup ordered including CBC, CMP, Lipase, UA, Urine preg, 1 Liter NS, Zofran and 1 mg Hydromorphone. Care is to be handed off to Muna CERVANTES pending CT result.Discussed patient with her, she verbalizes understanding. Medical Records Medical records reviewed: Yes I reviewed the patient's medical records. Lab Data Lab results reviewed: Yes I reviewed the patient's lab results. Labs: Laboratory Tests Range/Units 05/05/23 05/05/23 05/05/23 13:48 13:48 13:57 WBC (4.4-10.8) 10^3/uL 11.94 H RBC (3.93-5.22) 10^6/uL 5.18 Hgb (11.2-15.7) g/dL 14.5 Hct (36.0-46.0) % 45.2 MCV (80-95) fL 87 MCH (27.0-33.0) pg 28.0 MCHC (32.0-36.0) % 32.1 RDW (11.7-14.6) % 16.1 H Plt Count (130-400) 10^3/uL 340 MPV (8.0-11.0) fL 10.6 Immature Gran % 0.3 Neutrophils % 88.3 Lymphocytes % 6.8 Monocytes % 4.1 Eosinophils % 0.3 Basophils % 0.2 Nucleated RBC % (0.0-0.3) % 0.0 Absolute Neutrophils (1.2-6.7) 10^3/uL 10.54 H Absolute Lymphocytes (1.2-3.4) 10^3/uL 0.81 L Absolute Monocytes (0.1-0.8) 10^3/uL 0.49 Absolute Eosinophils (0.0-0.7) 10^3/uL 0.04 Absolute Basophils (0.0-0.2) 10^3/uL 0.02 Sodium Cancelled Potassium Cancelled Chloride Cancelled Carbon Dioxide Cancelled Anion Gap Cancelled BUN Cancelled Creatinine Cancelled Est GFR (CKD-EPI 2020) Cancelled Glucose Cancelled Calcium Cancelled Magnesium Cancelled Total Bilirubin Cancelled AST Cancelled ALT Cancelled Alkaline Phosphatase Cancelled Total Protein Cancelled Albumin Cancelled Lipase Cancelled Urine Color (Yellow) Yellow Urine Clarity (Clear) Clear Urine pH (5-8) 6.0 Ur Specific Pansey (1.005-1.025) 1.025 Urine Protein (Negative) mg/dL Trace H Urine Ketones (Negative) mg/dL Negative Urine Blood (Negative) Negative Urine Nitrite (Negative) Negative Urine Bilirubin (Negative) Negative Urine Urobilinogen (Up to 0.2) mg/dL 0.2 Ur Leukocyte Esterase (Negative) Negative Urine RBC (0-2) HPF 0-2 Urine WBC (0-5) HPF 3-5 Ur Epithelial Cells (Negative) HPF Many Urine Crystals (Negative) HPF Few Amorphous Urine Bacteria (Negative) HPF Few Urine Casts (Negative) LPF 5-10 Hyaline Urine Mucus (Negative) Moderate Ur Culture Indicated? No/Sq. Contamination Urine Glucose (Negative) mg/dL Negative Range/Units 05/05/23 14:10 WBC (4.4-10.8) 10^3/uL RBC (3.93-5.22) 10^6/uL Hgb (11.2-15.7) g/dL Hct (36.0-46.0) % MCV (80-95) fL MCH (27.0-33.0) pg MCHC (32.0-36.0) % RDW (11.7-14.6) % Plt Count (130-400) 10^3/uL MPV (8.0-11.0) fL Immature Gran % Neutrophils % Lymphocytes % Monocytes % Eosinophils % Basophils % Nucleated RBC % (0.0-0.3) % Absolute Neutrophils (1.2-6.7) 10^3/uL Absolute Lymphocytes (1.2-3.4) 10^3/uL Absolute Monocytes (0.1-0.8) 10^3/uL Absolute Eosinophils (0.0-0.7) 10^3/uL Absolute Basophils (0.0-0.2) 10^3/uL Sodium 138 Potassium 4.3 Chloride 102 Carbon Dioxide 27.1 Anion Gap 8.9 BUN 17 Creatinine 1.2 H Est GFR (CKD-EPI 2020) 59.05 Glucose 112 H Calcium 9.9 Magnesium 2.4 Total Bilirubin 1.1 H AST 25 ALT 42 Alkaline Phosphatase 99 Total Protein 8.2 Albumin 4.1 Lipase 188 H Urine Color (Yellow) Urine Clarity (Clear) Urine pH (5-8) Ur Specific Pansey (1.005-1.025) Urine Protein (Negative) mg/dL Urine Ketones (Negative) mg/dL Urine Blood (Negative) Urine Nitrite (Negative) Urine Bilirubin (Negative) Urine Urobilinogen (Up to 0.2) mg/dL Ur Leukocyte Esterase (Negative) Urine RBC (0-2) HPF Urine WBC (0-5) HPF Ur Epithelial Cells (Negative) HPF Urine Crystals (Negative) HPF Urine Bacteria (Negative) HPF Urine Casts (Negative) LPF Urine Mucus (Negative) Ur Culture Indicated? Urine Glucose (Negative) mg/dL HPI General Mode of arrival: ambulatory . Date/Time Provider Initiated Documentation: 05/05/23 13:14 . Limitations to Documentation: no limitations . Information obtained by: patient, RN notes reviewed and old records reviewed . HPI Narrative: 38-year-old female with a past medical history of pancreatitis, GERD hypertension fatty liver disease, chronic kidney disease opioid use disorder and hypothyroidism presents to the ER with a chief complaint of left upper abdominal pain which has worsened over the last couple of days. She did vomit prior to arrival while at work. She reports that she is waiting to see a specialist at [facility]. She did have a CT on 26 April which showed some increased fluid around her pancreas. She does endorse 2-3 shots of alcohol a day. She did not drink yesterday. She denies any fever . dysuria, or diarrhea. Past surgical history includes . Related Data Home Medications Medication Instructions Recorded Confirmed epinephrine 0.3 mg/0.3 mL 0.3 mg (0.3 mL) IM ONCE #1 ea 07/30/20 05/05/23 injection, auto-injector methadone 10 mg/5 mL oral solution 130 mg PO DAILY 09/15/22 05/05/23 losartan 100 mg tablet 100 mg PO DAILY #90 tabs 12/10/22 05/05/23 famotidine 40 mg tablet 40 mg PO DAILY #90 tabs 03/14/23 05/05/23 levothyroxine 125 mcg capsule 125 mcg PO DAILY #90 tab-caps 03/14/23 05/05/23 amlodipine 2.5 mg tablet 2.5 mg PO DAILY #90 tabs 04/12/23 05/05/23 Previous Rx's Medication Instructions Recorded epinephrine 0.3 mg/0.3 mL 0.3 mg (0.3 mL) IM ONCE #1 ea 07/30/20 injection, auto-injector losartan 100 mg tablet 100 mg PO DAILY #90 tabs 12/10/22 famotidine 40 mg tablet 40 mg PO DAILY #90 tabs 03/14/23 levothyroxine 125 mcg capsule 125 mcg PO DAILY #90 tab-caps 03/14/23 amlodipine 2.5 mg tablet 2.5 mg PO DAILY #90 tabs 04/12/23 Allergies Allergy/AdvReac Type Severity Reaction Status Date / Time venom-honey bee Allergy Severe ANAPHYLAXSI Verified 05/05/23 13:23 [bee venom (honey bee)] S General Stated Complaint: Abd Prob NAKUL: 3 Review of Systems All systems reviewed & are unremarkable except as noted in HPI and below Gastrointestinal Gastrointestinal: Reports as per HPI, Reports abdominal pain, Reports nausea and Reports vomiting PFSH All Active Problems GERD (gastroesophageal reflux disease) (Chronic) Fatty liver disease, nonalcoholic (Chronic) Hypertension (Chronic) CKD (chronic kidney disease) stage 3, GFR 30-59 ml/min (Acute) Opioid use disorder (Chronic) Methadone through [facility] Hypothyroidism (Chronic) Generalized anxiety disorder (Chronic) Medical History Major depressive disorder Pancreatitis 01/21/23 [facility] [place]. [place] Temporomandibular joint disorder Surgical History History of section (05/28/14) Family History Mother Alcohol abuse Depression Father Alcohol abuse Substance abuse Sister Depression Sister Substance abuse Depression Son No problems noted. Son No problems noted. Maternal Grandfather Colon cancer Skin cancer (melanoma) Type 2 diabetes mellitus Heart disease Maternal Grandmother Heart disease SLE (systemic lupus erythematosus) Osteoporosis Paternal Grandfather No problems noted. Paternal Grandmother No problems noted. 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 Pets and animals: Yes Pets and animals: cat(s), dog(s), hamster(s) and farm animals Sexually active: Yes Do you think of yourself as: straight/heterosexual Current gender identity: female What is your relationship status?: living with partner How often do you talk on the phone with friends or family?: three or more times per week How often do you get together with friends or relatives?: once per week How often do you attend buddhist or jain services?: 1-3 times per year Do you belong to any clubs or organized social groups?: no Panel score (0-1 are the most socially isolated patients): 2 What type of physical activity do you participate in: none Duration: 15-30 minutes/day Frequency: 5-6 times per week Eloisa/Jew: [employer] Special eloisa needs: No Seatbelt use: always Do you feel safe in your relationship?: Yes Female Reproductive History Menstrual control method: natural family planning History History 1 Para Hx # Term Pregnancies Multiple births 1 Hx # Pregnancies Ectopic pregnancies AB induced Hx Number of Living Children 2 AB spontaneous Exam Narrative Exam Narrative: Constitutional: Alert and oriented x3. Appears stated age. Normal body habitus. Head: Normocephalic, no trauma. Eyes: Pupils PERRL, Red reflex noted, EOM's intact. Eyelids symmetrical without lesions, discharge, or swelling. ENT: Bilateral TM's WNL, External ear normal to inspection, no mastoid TTP, swelling, or erythema, Nasal turbinates WNL, no nasal discharge. Normal dentition, Posterior pharynx WNL, no exudate. Chest: RRR, Normal S1, S2, distal pulses intact. Resp: Lungs clear to auscultation bilaterally, no wheezes, rales, or rhonchi. Abdomen: Appears slightly distended, Tenderness with palpation, LUQ and RUQ. Hypoactive bowel sounds. Musculoskeletal: Normal gait, 5/5 strength to all four extremities. Skin: No suspicious rashes or lesions. Capillary refill less than 2 sec. Neurologic: Cranial nerves II-XII intact. Alert and oriented x 3. Motor: No deficits noted. Sensory: Intact bilaterally all 4 extremities. Hematologic/Lymphatic: No ecchymosis, no lymphadenopathy. Pending Course Vital Signs Vital signs: Vital Signs Temperature 36.8 C 05/05/23 13:20 Pulse 106 H 05/05/23 13:20 Respiratory Rate 18 05/05/23 13:20 Blood Pressure 127/80 05/05/23 13:20 Pulse Oximetry 98 05/05/23 13:20 Temperature 36.8 C 05/05/23 13:20 Temperature Source Skin 05/05/23 13:20 Pulse 106 H 05/05/23 13:20 Respiratory Rate 18 05/05/23 13:20 Blood Pressure 127/80 05/05/23 13:20 Blood Pressure Position Sitting 05/05/23 13:20 Pulse Oximetry 98 05/05/23 13:20 Oxygen Delivery Method Room Air 05/05/23 13:20 Oxygen Flow Rate 0 05/05/23 13:20 Pain Level 7 05/05/23 13:20 Sign Out Sign Out Data: Sign Out Comment: Pending CT results, History of Pancreatitis, here with Increased abdominal pain and Vomiting. Has received 1 liter NS 1mg Hydromorphone, Zofran 4mg. Last updated by Khushboo Hall NP at 05/05/23 15:52
[2023-05-05 13:57] LABS: Abs Immature Grans 0.04 10^3/uL (0.0-0.06); Absolute Basophil Count 0.02 10^3/uL (0.0-0.2); Absolute Lymphocyte Count 0.81 10^3/uL (1.2-3.4); Absolute Monocyte Count 0.49 10^3/uL (0.1-0.8); Basophils % 0.2; Eosinophils % 0.3; HCT 45.2 % (36.0-46.0); HGB 14.5 g/dL (11.2-15.7); Immature Grans % 0.3; Lymphocytes % 6.8; MCHC 32.1 % (32.0-36.0); MCV 87 fL (80-95); MPV 10.6 fL (8.0-11.0); Monocytes % 4.1; Neutrophils % 88.3; Platelet Count 340 10^3/uL (130-400); RBC 5.18 10^6/uL (3.93-5.22); RDW 16.1 % (11.7-14.6); RDW-SD 51.8 fL; WBC 11.94 10^3/uL (4.4-10.8)
[2023-05-05 13:58] LABS: Absolute Eosinophil Count 0.04 10^3/uL (0.0-0.7); Absolute Neutrophil Count 10.54 10^3/uL (1.2-6.7)
[2023-05-05] MEDS: Normal Saline 1,000 ML 1000 ML IV (14:00)
[2023-05-05 14:02] LABS: Bilirubin Negative (Negative); Blood Negative (Negative); Clarity Clear (Clear); Glucose Negative (Negative); Ketones Negative (Negative); Leukocyte Esterase Negative (Negative); Nitrite Negative (Negative); Specific Gravity 1.025 (1.005-1.025); Urobilinogen 0.2 mg/dL (Up to 0.2)
[2023-05-05] MEDS: Ondansetron 4 MG/2 ML VIAL IVP (14:03)
[2023-05-05] MEDS: HYDROmorphone 2 MG/ML SYR 1 MG IVP ×3 (14:05→20:44)
[2023-05-05 14:11] LABS: Bacteria Few HPF (Negative); C & S Indicated? No/Sq. Contamination; Casts 5-10 Hyaline LPF (Negative); Crystals Few Amorphous HPF (Negative); Epithelial Cells Many HPF (Negative); Mucus Moderate (Negative); RBC 0-2 HPF (0-2)
[2023-05-05 14:35] LABS: ALT 42 U/L (14-59); AST 25 U/L (15-37); Albumin 4.1 g/dL (3.4-5.0); Alkaline Phosphatase 99 U/L (46-116); Anion Gap 8.9 mmol/L (3-11); BUN 17 mg/dL (7-18); Bilirubin, Total 1.1 mg/dL (0.2-1.0); CO2 27.1 mmol/L (21.0-32.0); CREATININE 1.2 mg/dL (0.55-1.02); Calcium 9.9 mg/dL (8.5-10.1); Chloride 102 mmol/L (98-107); Estimated GFR 59.05 (mL/min/1.73m2); Glucose 112 mg/dL (74-106); Lipase 188 U/L (16-77); Magnesium 2.4 mg/dL (1.8-2.4); Potassium 4.3 mmol/L (3.5-5.1); Sodium 138 mmol/L (136-145); Total Protein 8.2 g/dL (6.4-8.2)
[2023-05-05] MEDS: Omnipaque 350 MG/ML 100 ML BTL IJ (15:38)
[2023-05-05] MEDS: Normal Saline - Diluent 50 ML VIAL IJ (15:41)
[2023-05-05] MEDS: Lactated Ringers 1,000 ML 1000 ML IV ×2 (17:53→20:01)
--- NOTE | 2023-05-05 20:14 | ED.GENADUL_ITS ---
Discharge Plan Disposition Patient Disposition: Home Discharge Details Primary Care Provider: Cherise Chambers ED Provider: Muna Merchant Home Meds and New Rx's Prescriptions: No Action methadone 10 mg/5 mL solution 130 mg PO DAILY losartan 100 mg tablet 100 mg PO DAILY Qty: 90 3RF levothyroxine 125 mcg capsule 125 mcg PO DAILY Qty: 90 0RF famotidine 40 mg tablet 40 mg PO DAILY Qty: 90 3RF amlodipine 2.5 mg tablet 2.5 mg PO DAILY Qty: 90 3RF epinephrine 0.3 mg/0.3 mL auto-injector 0.3 mg IM ONCE Qty: 1 2RF Rx Instructions: as a single dose; may repeat once Medical Decision Making Care was accepted and transition from Mariza Hall, nurse practitioner HPI General Mode of arrival: ambulatory . Date/Time Provider Initiated Documentation: 05/05/23 13:14 . Limitations to Documentation: no limitations . Information obtained by: patient, RN notes reviewed and old records reviewed . Related Data Home Medications Medication Instructions Recorded Confirmed epinephrine 0.3 mg/0.3 mL 0.3 mg (0.3 mL) IM ONCE #1 ea 07/30/20 05/05/23 injection, auto-injector methadone 10 mg/5 mL oral solution 130 mg PO DAILY 09/15/22 05/05/23 losartan 100 mg tablet 100 mg PO DAILY #90 tabs 12/10/22 05/05/23 famotidine 40 mg tablet 40 mg PO DAILY #90 tabs 03/14/23 05/05/23 levothyroxine 125 mcg capsule 125 mcg PO DAILY #90 tab-caps 03/14/23 05/05/23 amlodipine 2.5 mg tablet 2.5 mg PO DAILY #90 tabs 04/12/23 05/05/23 Previous Rx's Medication Instructions Recorded epinephrine 0.3 mg/0.3 mL 0.3 mg (0.3 mL) IM ONCE #1 ea 07/30/20 injection, auto-injector losartan 100 mg tablet 100 mg PO DAILY #90 tabs 12/10/22 famotidine 40 mg tablet 40 mg PO DAILY #90 tabs 03/14/23 levothyroxine 125 mcg capsule 125 mcg PO DAILY #90 tab-caps 03/14/23 amlodipine 2.5 mg tablet 2.5 mg PO DAILY #90 tabs 04/12/23 Allergies Allergy/AdvReac Type Severity Reaction Status Date / Time venom-honey bee Allergy Severe ANAPHYLAXSI Verified 05/05/23 13:23 [bee venom (honey bee)] S General Stated Complaint: Abd Prob NAKUL: 3 PFSH All Active Problems GERD (gastroesophageal reflux disease) (Chronic) Fatty liver disease, nonalcoholic (Chronic) Hypertension (Chronic) CKD (chronic kidney disease) stage 3, GFR 30-59 ml/min (Acute) Opioid use disorder (Chronic) Methadone through [facility] Hypothyroidism (Chronic) Generalized anxiety disorder (Chronic) Medical History Major depressive disorder Pancreatitis 01/21/23 [facility] [place] Temporomandibular joint disorder Surgical History History of section (05/28/14) Family History Mother Alcohol abuse Depression Father Alcohol abuse Substance abuse Sister Depression Sister Substance abuse Depression Son No problems noted. Son No problems noted. Maternal Grandfather Colon cancer Skin cancer (melanoma) Type 2 diabetes mellitus Heart disease Maternal Grandmother Heart disease SLE (systemic lupus erythematosus) Osteoporosis Paternal Grandfather No problems noted. Paternal Grandmother No problems noted. 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 Pets and animals: Yes Pets and animals: cat(s), dog(s), hamster(s) and farm animals Sexually active: Yes Do you think of yourself as: straight/heterosexual Current gender identity: female What is your relationship status?: living with partner How often do you talk on the phone with friends or family?: three or more times per week How often do you get together with friends or relatives?: once per week How often do you attend yazidi or lutheran services?: 1-3 times per year Do you belong to any clubs or organized social groups?: no Panel score (0-1 are the most socially isolated patients): 2 What type of physical activity do you participate in: none Duration: 15-30 minutes/day Frequency: 5-6 times per week Eloisa/Faith: Church Special eloisa needs: No Seatbelt use: always Do you feel safe in your relationship?: Yes Female Reproductive History Menstrual control method: natural family planning History History 1 Para Hx # Term Pregnancies Multiple births 1 Hx # Pregnancies Ectopic pregnancies AB induced Hx Number of Living Children 2 AB spontaneous Course Vital Signs Vital signs: Vital Signs Temperature 36.8 C 05/05/23 13:20 Pulse 106 H 05/05/23 13:20 Respiratory Rate 18 05/05/23 13:20 Blood Pressure 127/80 05/05/23 13:20 Pulse Oximetry 98 05/05/23 13:20 Temperature 36.8 C 05/05/23 13:20 Temperature Source Skin 05/05/23 13:20 Pulse 67 05/05/23 20:01 Pulse 67 05/05/23 20:01 Respiratory Rate 20 05/05/23 20:01 Blood Pressure 158/86 H 05/05/23 20:01 Blood Pressure Mean 107 05/05/23 20:01 Blood Pressure Position Sitting 05/05/23 13:20 Pulse Oximetry 96 05/05/23 20:01 Oxygen Delivery Method Room Air 05/05/23 13:20 Oxygen Flow Rate 0 05/05/23 13:20 Pain Level 7 05/05/23 17:52 Lab/Test Results Lab/Test Results: Laboratory Tests Range/Units 05/05/23 05/05/23 05/05/23 13:48 13:48 13:57 WBC (4.4-10.8) 10^3/uL 11.94 H RBC (3.93-5.22) 10^6/uL 5.18 Hgb (11.2-15.7) g/dL 14.5 Hct (36.0-46.0) % 45.2 MCV (80-95) fL 87 MCH (27.0-33.0) pg 28.0 MCHC (32.0-36.0) % 32.1 RDW (11.7-14.6) % 16.1 H Plt Count (130-400) 10^3/uL 340 MPV (8.0-11.0) fL 10.6 Immature Gran % 0.3 Neutrophils % 88.3 Lymphocytes % 6.8 Monocytes % 4.1 Eosinophils % 0.3 Basophils % 0.2 Nucleated RBC % (0.0-0.3) % 0.0 Absolute Neutrophils (1.2-6.7) 10^3/uL 10.54 H Absolute Lymphocytes (1.2-3.4) 10^3/uL 0.81 L Absolute Monocytes (0.1-0.8) 10^3/uL 0.49 Absolute Eosinophils (0.0-0.7) 10^3/uL 0.04 Absolute Basophils (0.0-0.2) 10^3/uL 0.02 Sodium Cancelled Potassium Cancelled Chloride Cancelled Carbon Dioxide Cancelled Anion Gap Cancelled BUN Cancelled Creatinine Cancelled Est GFR (CKD-EPI 2020) Cancelled Glucose Cancelled Calcium Cancelled Magnesium Cancelled Total Bilirubin Cancelled AST Cancelled ALT Cancelled Alkaline Phosphatase Cancelled Total Protein Cancelled Albumin Cancelled Lipase Cancelled Urine Color (Yellow) Yellow Urine Clarity (Clear) Clear Urine pH (5-8) 6.0 Ur Specific Dewitt (1.005-1.025) 1.025 Urine Protein (Negative) mg/dL Trace H Urine Ketones (Negative) mg/dL Negative Urine Blood (Negative) Negative Urine Nitrite (Negative) Negative Urine Bilirubin (Negative) Negative Urine Urobilinogen (Up to 0.2) mg/dL 0.2 Ur Leukocyte Esterase (Negative) Negative Urine RBC (0-2) HPF 0-2 Urine WBC (0-5) HPF 3-5 Ur Epithelial Cells (Negative) HPF Many Urine Crystals (Negative) HPF Few Amorphous Urine Bacteria (Negative) HPF Few Urine Casts (Negative) LPF 5-10 Hyaline Urine Mucus (Negative) Moderate Ur Culture Indicated? No/Sq. Contamination Urine Glucose (Negative) mg/dL Negative Range/Units 05/05/23 14:10 WBC (4.4-10.8) 10^3/uL RBC (3.93-5.22) 10^6/uL Hgb (11.2-15.7) g/dL Hct (36.0-46.0) % MCV (80-95) fL MCH (27.0-33.0) pg MCHC (32.0-36.0) % RDW (11.7-14.6) % Plt Count (130-400) 10^3/uL MPV (8.0-11.0) fL Immature Gran % Neutrophils % Lymphocytes % Monocytes % Eosinophils % Basophils % Nucleated RBC % (0.0-0.3) % Absolute Neutrophils (1.2-6.7) 10^3/uL Absolute Lymphocytes (1.2-3.4) 10^3/uL Absolute Monocytes (0.1-0.8) 10^3/uL Absolute Eosinophils (0.0-0.7) 10^3/uL Absolute Basophils (0.0-0.2) 10^3/uL Sodium 138 Potassium 4.3 Chloride 102 Carbon Dioxide 27.1 Anion Gap 8.9 BUN 17 Creatinine 1.2 H Est GFR (CKD-EPI 2020) 59.05 Glucose 112 H Calcium 9.9 Magnesium 2.4 Total Bilirubin 1.1 H AST 25 ALT 42 Alkaline Phosphatase 99 Total Protein 8.2 Albumin 4.1 Lipase 188 H Urine Color (Yellow) Urine Clarity (Clear) Urine pH (5-8) Ur Specific Dewitt (1.005-1.025) Urine Protein (Negative) mg/dL Urine Ketones (Negative) mg/dL Urine Blood (Negative) Urine Nitrite (Negative) Urine Bilirubin (Negative) Urine Urobilinogen (Up to 0.2) mg/dL Ur Leukocyte Esterase (Negative) Urine RBC (0-2) HPF Urine WBC (0-5) HPF Ur Epithelial Cells (Negative) HPF Urine Crystals (Negative) HPF Urine Bacteria (Negative) HPF Urine Casts (Negative) LPF Urine Mucus (Negative) Ur Culture Indicated? Urine Glucose (Negative) mg/dL POC- Test(urine) Negative Sign Out Sign Out Data: Sign Out Comment: Pending CT results, History of Pancreatitis, here with Increased abdominal pain and Vomiting. Has received 1 liter NS 1mg Hydromorphone, Zofran 4mg. Last updated by Khushboo Hall NP at 05/05/23 15:52
[2023-05-05] MEDS: oxyCODONE 5 MG TAB PO (20:43)
[2023-05-05] MEDS: ACETAMINOPHEN 1,000 MG/100 ML BTL 400 MG IVPB (20:49)
--- NOTE | 2023-05-05 21:11 | HPE_ITS ---
Date of service: 05/05/23 Time of Service: 21:12 Assessment and Plan Assessment and plan (1) Alcoholism: Status: Acute Assessment and plan: She was admitted to [facility] in December of this year for acute hemorrhagic pancreatitis and although was absent for short time started drinking again until 2 days ago. She has not had a problem with known alcohol withdrawal syndrome will place her on alcohol withdrawal protocol and monitor the situation. She states she has not drank alcohol for 2 days. (2) Pseudocyst of pancreas: Status: Acute Assessment and plan: She has large pseudocysts in the pancreas in the abdomen. I suspect that much of her pain is due to these cysts although there is not much difference in the size now compared to 2 weeks ago. (3) Opiate addiction: Status: Acute Assessment and plan: We will continue on her methadone dose. (4) Pancreatitis: Status: Chronic Assessment and plan: Her lipase is elevated but not significantly so. This may be due to the chronic nature of her pancreatitis. We will recheck this tomorrow. History of Present Illness History of Present Illness Chief Complaint: Abdominal pain Narrative: This 38-year-old female came to the emergency department because of increasing abdominal pain. She was seen here in December of this year for hemorrhagic pancreatitis and was sent to [facility] where she spent about a week and a half they are recovering from this. She was drinking approximately 6-7 shots of alcohol per day and had stopped temporarily after going to [facility]. She is not sober long after that admission and resumed drinking about 3-4 drinks per day. She says she has been trying to lower her alcohol consumption but it is difficult for her to do this. She has had intermittent abdominal pain and distention recently and saw her primary care provider who ordered a CT of the abdomen. It showed pseudocyst of the pancreas and a gastroenterology consult was requested. She came in today because of increasing abdominal distention and epigastric and bilateral upper abdominal pain which has been quite severe. She says the pain was bad enough that she would sweat and shake with the pain. The pain worsened today and she came to the hospital. She states she has not drank alcohol for 2 days. She had some nausea and vomiting earlier but that has improved. There has been no hematemesis. In the emergency department she was given approximately 3 L of intravenous fluids oxycodone and hydromorphone for pain. A CT was done which showed 2 large pseudocysts, ascites and fluid around the pancreas. Emergency department consulted by gastroenterology they recommended admission, intravenous fluids and pain control. After the pain was worsening or her laboratory studies were worsening transferred to [facility] could be considered for consideration of interventional radiology drainage of the pseudocysts. The patient does not use tobacco at the present time. She does go to the methadone clinic and gets 130 mg of methadone per day. She did have a relapse of her opiate use about a year ago and has been on methadone since then. 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 She lives at home with her boyfriend and her [id number]-ndxf-old twins and a 12 and 16-year-old niece and nephew. Her mother is caring for the children right now. Her boyfriend is quite ill with severe liver disease due to excessive alcohol intake. Review of Systems Constitutional Constitutional: Denies chills, Denies fever(s) and Reports poor appetite ENT Ears, Nose, Mouth, and Throat: Denies dysphagia Cardiovascular Cardiovascular: Denies chest pain, Denies rapid heart rate, Denies pedal edema, Denies leg edema and Denies dyspnea on exertion Respiratory Respiratory: Denies cough and Denies dyspnea on exertion Gastrointestinal Gastrointestinal: Reports abdominal pain, Reports bloating, Denies coffee ground emesis, Denies dysphagia, Denies diarrhea, Reports nausea, Reports vomiting and Denies hematemesis Genitourinary Genitourinary: Denies difficulty voiding PFSH All Active Problems (Updated 05/05/23 @ 21:29 by Dino Gagnon MD) Pancreatitis (Chronic) 01/21/23 [facility]. -hb Opiate addiction (Acute) Pseudocyst of pancreas (Acute) Alcoholism (Acute) GERD (gastroesophageal reflux disease) (Chronic) Fatty liver disease, nonalcoholic (Chronic) Hypertension (Chronic) CKD (chronic kidney disease) stage 3, GFR 30-59 ml/min (Acute) Opioid use disorder (Chronic) Methadone through [facility] Hypothyroidism (Chronic) Generalized anxiety disorder (Chronic) Medical History Major depressive disorder Pancreatitis 01/21/23 [facility]. -hb Temporomandibular joint disorder Surgical History History of section (05/28/14) Family History Mother Alcohol abuse Depression Father Alcohol abuse Substance abuse Sister Depression Sister Substance abuse Depression Son No problems noted. Son No problems noted. Maternal Grandfather Colon cancer Skin cancer (melanoma) Type 2 diabetes mellitus Heart disease Maternal Grandmother Heart disease SLE (systemic lupus erythematosus) Osteoporosis Paternal Grandfather No problems noted. Paternal Grandmother No problems noted. 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 Pets and animals: Yes Pets and animals: cat(s), dog(s), hamster(s) and farm animals Sexually active: Yes Do you think of yourself as: straight/heterosexual Current gender identity: female What is your relationship status?: living with partner How often do you talk on the phone with friends or family?: three or more times per week How often do you get together with friends or relatives?: once per week How often do you attend religious or zoroastrianism services?: 1-3 times per year Do you belong to any clubs or organized social groups?: no Panel score (0-1 are the most socially isolated patients): 2 What type of physical activity do you participate in: none Duration: 15-30 minutes/day Frequency: 5-6 times per week Eloisa/Adventism: Synagogue Special eloisa needs: No Seatbelt use: always Do you feel safe in your relationship?: Yes Female Reproductive History Menstrual control method: natural family planning History History 1 Para Hx # Term Pregnancies Multiple births 1 Hx # Pregnancies Ectopic pregnancies AB induced Hx Number of Living Children 2 AB spontaneous Meds Allergies and Home Medications Allergies Allergy/AdvReac Type Severity Reaction Status Date / Time venom-honey bee Allergy Severe ANAPHYLAXSI Verified 05/05/23 13:23 [bee venom (honey bee)] S Home Medications Medication Instructions Recorded Confirmed Type epinephrine 0.3 mg/0.3 mL 0.3 mg (0.3 mL) IM ONCE #1 ea 07/30/20 05/05/23 Rx injection, auto-injector methadone 10 mg/5 mL oral solution 130 mg PO DAILY 09/15/22 05/05/23 History losartan 100 mg tablet 100 mg PO DAILY #90 tabs 12/10/22 05/05/23 Rx famotidine 40 mg tablet 40 mg PO DAILY #90 tabs 03/14/23 05/05/23 Rx levothyroxine 125 mcg capsule 125 mcg PO DAILY #90 tab-caps 03/14/23 05/05/23 Rx amlodipine 2.5 mg tablet 2.5 mg PO DAILY #90 tabs 04/12/23 05/05/23 Rx Exam Const General: cooperative, comfortable, no acute distress and well groomed Orientation: alert and awake Neck Neck: normal visual inspection, no lymphadenopathy and no JVD Resp Auscultation: clear to auscultation bilaterally Cardio Rate: regular rate Rhythm: regular rhythm Heart Sounds: S1 normal, S2 normal, no gallops and no murmurs GI Inspection: distended and No visible peristalsis Palpation: soft, no hepatosplenomegaly, guarding, no masses and ascites Extrem General: no clubbing, no cyanosis and no edema Results Labs 05/05/23 13:48 05/05/23 14:10 Labs: Laboratory Results - last 24 hr 05/05/23 05/05/23 05/05/23 13:48 13:48 13:57 WBC 11.94 H RBC 5.18 Hgb 14.5 Hct 45.2 MCV 87 MCH 28.0 MCHC 32.1 RDW 16.1 H Plt Count 340 MPV 10.6 Immature Gran % 0.3 Neutrophils % 88.3 Lymphocytes % 6.8 Monocytes % 4.1 Eosinophils % 0.3 Basophils % 0.2 Nucleated RBC % 0.0 Absolute Neutrophils 10.54 H Absolute Lymphocytes 0.81 L Absolute Monocytes 0.49 Absolute Eosinophils 0.04 Absolute Basophils 0.02 Sodium Cancelled Potassium Cancelled Chloride Cancelled Carbon Dioxide Cancelled Anion Gap Cancelled BUN Cancelled Creatinine Cancelled Est GFR (CKD-EPI 2020) Cancelled Glucose Cancelled Calcium Cancelled Magnesium Cancelled Total Bilirubin Cancelled AST Cancelled ALT Cancelled Alkaline Phosphatase Cancelled Total Protein Cancelled Albumin Cancelled Lipase Cancelled Urine Color Yellow Urine Clarity Clear Urine pH 6.0 Ur Specific [place] 1.025 Urine Protein Trace H Urine Ketones Negative Urine Blood Negative Urine Nitrite Negative Urine Bilirubin Negative Urine Urobilinogen 0.2 Ur Leukocyte Esterase Negative Urine RBC 0-2 Urine WBC 3-5 Ur Epithelial Cells Many Urine Crystals Few Amorphous Urine Bacteria Few Urine Casts 5-10 Hyaline Urine Mucus Moderate Ur Culture Indicated? No/Sq. Contamination Urine Glucose Negative 05/05/23 14:10 WBC RBC Hgb Hct MCV MCH MCHC RDW Plt Count MPV Immature Gran % Neutrophils % Lymphocytes % Monocytes % Eosinophils % Basophils % Nucleated RBC % Absolute Neutrophils Absolute Lymphocytes Absolute Monocytes Absolute Eosinophils Absolute Basophils Sodium 138 Potassium 4.3 Chloride 102 Carbon Dioxide 27.1 Anion Gap 8.9 BUN 17 Creatinine 1.2 H Est GFR (CKD-EPI 2020) 59.05 Glucose 112 H Calcium 9.9 Magnesium 2.4 Total Bilirubin 1.1 H AST 25 ALT 42 Alkaline Phosphatase 99 Total Protein 8.2 Albumin 4.1 Lipase 188 H Urine Color Urine Clarity Urine pH Ur Specific [place] Urine Protein Urine Ketones Urine Blood Urine Nitrite Urine Bilirubin Urine Urobilinogen Ur Leukocyte Esterase Urine RBC Urine WBC Ur Epithelial Cells Urine Crystals Urine Bacteria Urine Casts Urine Mucus Ur Culture Indicated? Urine Glucose Last Vital Signs Temp 36.8 C 05/05/23 13:20 Pulse 66 05/05/23 20:46 Resp 17 05/05/23 20:46 BP 150/88 H 05/05/23 20:46 Pulse Ox 95 05/05/23 20:46 Time Spent Time spent with Patient: 55-74 minutes Time was spent: preparing to see the patient(eg.review tests), obtaining and/or reviewing separately otained hiistory, ordering medications,tests, procedures, referring, communicating with other health physician locums urgent care and counseling the patient
[2023-05-05] MEDS: Pantoprazole 40 MG VIAL IVP (21:44)
[2023-05-05 21:46] LABS: ETHANOL BLOOD < 3.0 mg/dL (<10)
[2023-05-06] VITALS (19 sets, daily range): BP systolic 106–151; BP diastolic 71–92; PULSE 44–99; RESP 12–20; TEMP 35.7–36.6; O2SAT 92–99
[2023-05-06] MEDS: Normal Saline Flush 10 ML SYR IVP ×2 (02:06→21:43)
[2023-05-06] MEDS: Lactated Ringers 1,000 ML 100 ML IV ×2 (02:08→21:51)
[2023-05-06 02:12] LABS: *AMPHETAMINES SCREEN URINE Negative (Negative); *BARBITURATES SCREEN URINE Negative (Negative); *BENZODIAZEPINES SCREEN URINE Negative (Negative); Cannabinoids THC Negative (Negative); Cocaine Screen,Urine Negative (Negative); METHADONE URINE SCREEN Positive (Negative); OPIATES URINE SCREEN Positive (Negative)
[2023-05-06 02:14] LABS: Tricyclic Antidepressants Negative (Negative)
[2023-05-06] MEDS: HYDROmorphone 2 MG/ML SYR 1 MG IVP ×2 (02:15→07:26)
[2023-05-06] MEDS: Losartan 50 MG TAB 100 MG PO ×2 (02:15→21:50)
[2023-05-06] MEDS: amLODIPine 2.5 MG TAB PO ×2 (02:15→21:50)
[2023-05-06 04:10] LABS: COVID-19 PCR Negative (Negative); Influenza A PCR Negative (Negative); Influenza B PCR Negative (Negative); RSV PCR Negative (Negative)
[2023-05-06 04:14] LABS: Source Nasopharynx
[2023-05-06 07:35] LABS: Abs Immature Grans 0.03 10^3/uL (0.0-0.06); Absolute Basophil Count 0.02 10^3/uL (0.0-0.2); Absolute Eosinophil Count 0.14 10^3/uL (0.0-0.7); Absolute Monocyte Count 0.34 10^3/uL (0.1-0.8); Absolute Neutrophil Count 3.22 10^3/uL (1.2-6.7); Basophils % 0.4; Eosinophils % 2.8; HCT 36.6 % (36.0-46.0); HGB 11.4 g/dL (11.2-15.7); Immature Grans % 0.6; Lymphocytes % 24.2; MCH 27.7 pg (27.0-33.0); MCHC 31.1 % (32.0-36.0); MCV 89 fL (80-95); MPV 11.4 fL (8.0-11.0); Monocytes % 6.9; Neutrophils % 65.1; Platelet Count 227 10^3/uL (130-400); RBC 4.11 10^6/uL (3.93-5.22); RDW 16.4 % (11.7-14.6); RDW-SD 53.5 fL; WBC 4.95 10^3/uL (4.4-10.8)
[2023-05-06 08:12] LABS: Anion Gap 5.6 mmol/L (3-11); BUN 12 mg/dL (7-18); CO2 29.4 mmol/L (21.0-32.0); CREATININE 0.9 mg/dL (0.55-1.02); Chloride 103 mmol/L (98-107); Glucose 89 mg/dL (74-106); Lipase 67 U/L (16-77); Potassium 4.5 mmol/L (3.5-5.1); Sodium 138 mmol/L (136-145)
[2023-05-06] MEDS: Levothyroxine 125 MCG TAB PO (08:32)
[2023-05-06] MEDS: Methadone Liquid 10 MG/ML 130 MG PO (08:45)
[2023-05-06] MEDS: HYDROmorphone 2 MG/ML SYR IVP ×3 (11:28→21:44)
--- NOTE | 2023-05-06 13:06 | W.PM.PROGNOT ---
Date of Service Date of service: 05/06/23 Time of Service: 13:06 Assessment and Plan Assessment and plan (1) Pseudocyst of pancreas: Status: Acute Assessment and plan: -She has large previous know pseudocysts in the pancreas in the abdomen -suspected that much of her pain is due to these cysts although there is not much difference in the size now compared to 2 weeks ago -dilaudid increased from 1 to 2 mg Q4hr PRN -continue to encourage slow advancement of diet (2) Alcoholism: Status: Acute Assessment and plan: -was admitted to [facility] in December of this year for acute hemorrhagic pancreatitis and although was absent for short time started drinking again until 2 days [employer]ASSENGER [employer]KEM[employer] -She has not had a problem with known alcohol withdrawal syndrome will place her on alcohol withdrawal protocol -has dong no signs of withdrawal thus far (3) Opiate addiction: Status: Acute Assessment and plan: We will continue on her methadone dose. (4) Pancreatitis: Status: Chronic Assessment and plan: -lipase is elevated but not significantly so. This may be due to the chronic nature of her pancreatitis. Subjective Subjective Patient reports: no new complaints Interval history since last seen: Patient states that her abdominal pain has improved and that she was been able ot tolerate some liquid intake, though it did cause her pain to be a 5/10 which is lower then on admission and when she was NPO Exam Narrative Exam Narrative: AOx4, in no acute distress, heart RRR, lungs CTAB, abdomen soft, mild diffuse tenderness to palpation, positive bowel sounds Objective Last Vital Signs Temp 96.3 F L 05/06/23 11:22 Pulse 99 H 05/06/23 11:22 Resp 14 05/06/23 11:22 BP 151/92 H 05/06/23 11:22 Pulse Ox 93 05/06/23 11:22 Laboratory Results - last 24 hr 05/05/23 05/05/23 05/05/23 13:48 13:48 13:57 WBC 11.94 H RBC 5.18 Hgb 14.5 Hct 45.2 MCV 87 MCH 28.0 MCHC 32.1 RDW 16.1 H Plt Count 340 MPV 10.6 Immature Gran % 0.3 Neutrophils % 88.3 Lymphocytes % 6.8 Monocytes % 4.1 Eosinophils % 0.3 Basophils % 0.2 Nucleated RBC % 0.0 Absolute Neutrophils 10.54 H Absolute Lymphocytes 0.81 L Absolute Monocytes 0.49 Absolute Eosinophils 0.04 Absolute Basophils 0.02 Sodium Cancelled Potassium Cancelled Chloride Cancelled Carbon Dioxide Cancelled Anion Gap Cancelled BUN Cancelled Creatinine Cancelled Est GFR (CKD-EPI 2020) Cancelled Glucose Cancelled Calcium Cancelled Magnesium Cancelled Total Bilirubin Cancelled AST Cancelled ALT Cancelled Alkaline Phosphatase Cancelled Total Protein Cancelled Albumin Cancelled Lipase Cancelled Urine Color Yellow Urine Clarity Clear Urine pH 6.0 Ur Specific [place] 1.025 Urine Protein Trace H Urine Ketones Negative Urine Blood Negative Urine Nitrite Negative Urine Bilirubin Negative Urine Urobilinogen 0.2 Ur Leukocyte Esterase Negative Urine RBC 0-2 Urine WBC 3-5 Ur Epithelial Cells Many Urine Crystals Few Amorphous Urine Bacteria Few Urine Casts 5-10 Hyaline Urine Mucus Moderate Ur Culture Indicated? No/Sq. Contamination Urine Glucose Negative Urine Opiates Screen Urine Methadone Screen Ur Barbiturates Screen Ur Tricyclics Screen Ur Amphetamines Screen U Benzodiazepines Scrn Urine Cocaine Screen Ur THC Screen Ethyl Alcohol COVID-19 Source SARS-CoV-2 (PCR) Influenza Type A (PCR) Influenza Type B (PCR) RSV (PCR) 05/05/23 05/05/23 05/06/23 14:10 14:10 01:45 WBC RBC Hgb Hct MCV MCH MCHC RDW Plt Count MPV Immature Gran % Neutrophils % Lymphocytes % Monocytes % Eosinophils % Basophils % Nucleated RBC % Absolute Neutrophils Absolute Lymphocytes Absolute Monocytes Absolute Eosinophils Absolute Basophils Sodium 138 Potassium 4.3 Chloride 102 Carbon Dioxide 27.1 Anion Gap 8.9 BUN 17 Creatinine 1.2 H Est GFR (CKD-EPI 2020) 59.05 Glucose 112 H Calcium 9.9 Magnesium 2.4 Total Bilirubin 1.1 H AST 25 ALT 42 Alkaline Phosphatase 99 Total Protein 8.2 Albumin 4.1 Lipase 188 H Urine Color Urine Clarity Urine pH Ur Specific [place] Urine Protein Urine Ketones Urine Blood Urine Nitrite Urine Bilirubin Urine Urobilinogen Ur Leukocyte Esterase Urine RBC Urine WBC Ur Epithelial Cells Urine Crystals Urine Bacteria Urine Casts Urine Mucus Ur Culture Indicated? Urine Glucose Urine Opiates Screen Positive A Urine Methadone Screen Positive A Ur Barbiturates Screen Negative Ur Tricyclics Screen Negative Ur Amphetamines Screen Negative U Benzodiazepines Scrn Negative Urine Cocaine Screen Negative Ur THC Screen Negative Ethyl Alcohol < 3.0 COVID-19 Source SARS-CoV-2 (PCR) Influenza Type A (PCR) Influenza Type B (PCR) RSV (PCR) 05/06/23 05/06/23 05/06/23 01:45 06:50 06:50 WBC 4.95 RBC 4.11 Hgb 11.4 D Hct 36.6 MCV 89 MCH 27.7 MCHC 31.1 L RDW 16.4 H Plt Count 227 MPV 11.4 H Immature Gran % 0.6 Neutrophils % 65.1 Lymphocytes % 24.2 Monocytes % 6.9 Eosinophils % 2.8 Basophils % 0.4 Nucleated RBC % 0.0 Absolute Neutrophils 3.22 Absolute Lymphocytes 1.20 Absolute Monocytes 0.34 Absolute Eosinophils 0.14 Absolute Basophils 0.02 Sodium 138 Potassium 4.5 Chloride 103 Carbon Dioxide 29.4 Anion Gap 5.6 BUN 12 Creatinine 0.9 Est GFR (CKD-EPI 2020) 83.40 Glucose 89 Calcium 9.0 Magnesium Total Bilirubin AST ALT Alkaline Phosphatase Total Protein Albumin Lipase 67 Urine Color Urine Clarity Urine pH Ur Specific [place] Urine Protein Urine Ketones Urine Blood Urine Nitrite Urine Bilirubin Urine Urobilinogen Ur Leukocyte Esterase Urine RBC Urine WBC Ur Epithelial Cells Urine Crystals Urine Bacteria Urine Casts Urine Mucus Ur Culture Indicated? Urine Glucose Urine Opiates Screen Urine Methadone Screen Ur Barbiturates Screen Ur Tricyclics Screen Ur Amphetamines Screen U Benzodiazepines Scrn Urine Cocaine Screen Ur THC Screen Ethyl Alcohol COVID-19 Source Nasopharynx SARS-CoV-2 (PCR) Negative Influenza Type A (PCR) Negative Influenza Type B (PCR) Negative RSV (PCR) Negative PAWSS Have you Been Recently Intoxicated or Drunk Within the Last 30 days?: Yes Have you Ever Experienced Previous Episodes of Alcohol Withdrawal?: No Have you ever Experienced Withdrawal Seizures?: No Have you ever Experienced Delirium Tremens(DT)s?: No Have you ever undergone Alcohol Rehabilitation Treatment (i.e, inpt ot outpatient treatment programs)?: No Have you ever Experienced Blackouts?: No Have you ever Combined Alcohol with other Downers within the last 90 days?: No Have you ever Combined Alcohol with any other Substance of Abuse during the last 90 days?: No Positive Blood Alcohol level on Presentation? [PCS.BAL]: No Evidence of Increased Autonomic Activity (i.e. HR>120, tremor, sweating, agitation, nausea)?: Yes Result: 2 Time Spent with Patient Time Spent with Patient: >50 minutes Time was spent: preparing to see the patient(eg.review tests), obtaining and/or reviewing separately otained hiistory, ordering medications,tests, procedures, referring, communicating with other health landcare officer, indepentently interpreting results, counseling the patient and care coordination
--- NOTE | 2023-05-06 17:16 | PDOC.CMIN ---
Date of service: 05/06/23 Time of Service: 17:16 Care Management Initial Assmt Initial Assessment REASON FOR HOSPITALIZATION:: pancreatitis, pancreatic pseudocyst PREVIOUS FUNCTIONAL STATUS/SOCIAL/FAMILY SUPPORTS:: Yamilet lives in [place] with her s/o, Lukas. They have twin boys who are 8, and take care of her niece and nephew (12 & 16). 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 She is independent at baseline. CURRENT FUNCTIONAL STATUS:: Yamilet was lying in bed reading a book when CM met with her. She was pleasant and engaged in conversation. She stated that her s/o is also hospitalized currently, in the ICU, and she was hoping to see him at some point. She stated that she has been having pain, especially after eating. She is on a clear liquid diet currently. She reported that she has cysts that may need to be drained, which would likely happen at [facility]. She is hoping to be discharged soon, as her mother is watching her children while they are both not well. CM will continue to follow. ADVANCE DIRECTIVES:: not on file; CM will offer forms. Has patient been provided with info about the portal/API?: Yes Did the patient sign up for the portal?: Yes CODE STATUS:: Full Code INSURANCE COVERAGE / FINANCIAL ISSUES:: STEFFANY CURRENT HOME/COMMUNITY SERVICES/EQUIPMENT:: None PRIMARY CARE PHYSICIAN:: Cherise Chambers POTENTIAL DISCHARGE NEEDS:: follow up appointments PATIENT/FAMILY EDUCATION NEEDS:: Review discharge instructions and limitations, discussion of self care needs including ask me three. ANTICIPATED BARRIERS TO DISCHARGE:: None. TRANSPORTATION:: via private vehicle by her mother. PLAN:: Anticipate Yamilet will return home once medically cleared. Her mother will drive her home via private vehicle. She will follow up with her PCP and discharge plan of care. CM will continue to follow. PFSH All Active Problems (Updated 05/05/23 @ 21:29 by Dino Gagnon MD) Pancreatitis (Chronic) 01/21/23 [facility]. -hb Opiate addiction (Acute) Pseudocyst of pancreas (Acute) Alcoholism (Acute) GERD (gastroesophageal reflux disease) (Chronic) Fatty liver disease, nonalcoholic (Chronic) Hypertension (Chronic) CKD (chronic kidney disease) stage 3, GFR 30-59 ml/min (Acute) Opioid use disorder (Chronic) Methadone through [facility] Hypothyroidism (Chronic) Generalized anxiety disorder (Chronic) Medical History Major depressive disorder Pancreatitis 01/21/23 [facility]. -hb Temporomandibular joint disorder Surgical History History of section (05/28/14) Family History Mother Alcohol abuse Depression Father Alcohol abuse Substance abuse Sister Depression Sister Substance abuse Depression Son No problems noted. Son No problems noted. Maternal Grandfather Colon cancer Skin cancer (melanoma) Type 2 diabetes mellitus Heart disease Maternal Grandmother Heart disease SLE (systemic lupus erythematosus) Osteoporosis Paternal Grandfather No problems noted. Paternal Grandmother No problems noted. 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 Pets and animals: Yes Pets and animals: cat(s), dog(s), hamster(s) and farm animals Sexually active: Yes Do you think of yourself as: straight/heterosexual Current gender identity: female What is your relationship status?: living with partner How often do you talk on the phone with friends or family?: three or more times per week How often do you get together with friends or relatives?: once per week How often do you attend catholic or uatsdin services?: 1-3 times per year Do you belong to any clubs or organized social groups?: no Panel score (0-1 are the most socially isolated patients): 2 What type of physical activity do you participate in: none Duration: 15-30 minutes/day Frequency: 5-6 times per week Eloisa/Evangelical: Buddhist Special eloisa needs: No Seatbelt use: always Do you feel safe in your relationship?: Yes Female Reproductive History Menstrual control method: natural family planning History History 1 Para Hx # Term Pregnancies Multiple births 1 Hx # Pregnancies Ectopic pregnancies AB induced Hx Number of Living Children 2 AB spontaneous
[2023-05-06] MEDS: Pantoprazole 40 MG VIAL IVP (21:43)
[2023-05-07] VITALS (8 sets, daily range): BP systolic 141–169; BP diastolic 90–110; PULSE 50–67; RESP 14–20; TEMP 36.4–36.7; O2SAT 93–97
[2023-05-07] MEDS: Levothyroxine 125 MCG TAB PO (05:33)
[2023-05-07] MEDS: Methadone Liquid 10 MG/ML 130 MG PO (08:57)
--- NOTE | 2023-05-07 09:36 | NUR.NOTE ---
Pt reported BIRD KEEPER took BP this morning at approx 8a and systolic was in the 170s manually. At approx 9a, BP was retaken and it was 164/110. Pt reports pain has improved. This was reported to spa supervisor. No further interventions at this time. Nursing Note:
--- NOTE | 2023-05-07 12:55 | PGE_ITS ---
Date of Service Date of service: 05/07/23 Time of Service: 12:56 Assessment and Plan Assessment and plan (1) Pancreatitis: Status: Chronic Assessment and plan: Her last lipase is normal. Symptomatically she has improved. We will advance her diet and consider discharge tomorrow if she is stable. (2) Pseudocyst of pancreas: Status: Acute Assessment and plan: I believe these are stable at the present time. (3) Opiate addiction: Status: Acute Assessment and plan: She is receiving her usual methadone dose. She does not have a way of getting that for tomorrow as she does receive home doses but the bathroom clinic is closed tomorrow being a Tuesday. (4) Hypertension: Status: Chronic Assessment and plan: Her amlodipine has been at 2.5 mg daily and will increase her dose to 5 mg daily. Subjective Subjective Interval history since last seen: The patient is feeling improved. She has not needed any supplemental hydromorphone. She is tolerating a liquid diet for both last night for dinner and this morning's breakfast. She is having less abdominal pain. She is taking her usual dose of the methadone. The nurses had noted that her blood pressures elevated. She has an appointment with gastroenterology at [facility] as a telehealth visit May 26 to discuss her pancreatic pseudocysts and recurrent pancreatitis. She has not had any alcohol withdrawal symptoms at the present time and think she can stop drinking on her own. She states that her mother has gone to [facility] but she herself has not gone to Alcoholics Anonymous. She understands that her pancreatic problems are likely very closely related to her alcohol use and the importance of abstinence from alcohol. We discussed her telehealth visit and suggested that an onsite visit would likely be more productive so that the painter maintenance can examine her abdomen. It will be important at time of discharge that notes from this hospitalization be sent to [facility]. It will also be important to send the images of her CT be sent to [facility]. Exam Narrative Exam Narrative: Alert female, vital signs are reviewed. Lungs: Clear breath sounds bilaterally. Mouth: Normal. Neck: No adenopathy or masses. Lungs: Clear breath sounds bilaterally. Abdomen: Soft with hepatosplenomegaly masses or significant tenderness. I cannot feel the pseudocysts,, but did not press significantly to cause any discomfort. Extremities: No edema. Objective Last Vital Signs Temp 36.6 C 05/07/23 11:11 Pulse 53 L 05/07/23 11:11 Resp 16 05/07/23 11:11 BP 167/96 H 05/07/23 11:11 Pulse Ox 96 05/07/23 11:11 PAWSS Have you Been Recently Intoxicated or Drunk Within the Last 30 days?: Yes Have you Ever Experienced Previous Episodes of Alcohol Withdrawal?: No Have you ever Experienced Withdrawal Seizures?: No Have you ever Experienced Delirium Tremens(DT)s?: No Have you ever undergone Alcohol Rehabilitation Treatment (i.e, inpt ot outpatient treatment programs)?: No Have you ever Experienced Blackouts?: No Have you ever Combined Alcohol with other Downers within the last 90 days?: No Have you ever Combined Alcohol with any other Substance of Abuse during the last 90 days?: No Positive Blood Alcohol level on Presentation? [PCS.BAL]: No Evidence of Increased Autonomic Activity (i.e. HR>120, tremor, sweating, ag itation, nausea)?: Yes Result: 2 Time Spent with Patient Time Spent with Patient: 25-34 minutes Time was spent: preparing to see the patient(eg.review tests), indepentently interpreting results and counseling the patient
[2023-05-07] MEDS: Pantoprazole 40 MG VIAL IVP (21:31)
[2023-05-07] MEDS: Normal Saline Flush 10 ML SYR IVP (21:31)
[2023-05-07] MEDS: Losartan 50 MG TAB 100 MG PO (21:32)
[2023-05-07] MEDS: amLODIPine 5 MG TAB PO (21:32)
[2023-05-08 01:06] VITALS: BP 157/107; PULSE 66; RESP 20; TEMP 36; O2SAT 100
[2023-05-08 06:11] VITALS: BP 157/102; PULSE 62; RESP 20; TEMP 36.7; O2SAT 96
[2023-05-08] MEDS: Levothyroxine 125 MCG TAB PO (06:13)
[2023-05-08] MEDS: Methadone Liquid 10 MG/ML 130 MG PO (07:57)
[2023-05-08 08:12] VITALS: BP 179/115; PULSE 67; RESP 18; TEMP 36.8; O2SAT 98
--- NOTE | 2023-05-08 10:45 | W.PM.DS.N ---
Date of service: 05/08/23 Time of Service: 10:45 DS: Diagnosis Discharge Diagnosis (1) Pancreatitis: Status: Chronic Asessment and Plan: -She has large previous know pseudocysts in the pancreas in the abdomen -suspected that much of her pain is due to these cysts although there is not much difference in the size now compared to 2 weeks ago -last IV dilaudid dose given 05/06/2023 at 21:44, no additional pain medication needed -tolerating PO intake at discharge -has f/u appt with [facility] within next few weeks (2) Pseudocyst of pancreas: Status: Acute Asessment and Plan: -as noted above (3) Opiate addiction: Status: Acute Asessment and Plan: -continue home methadone dose (4) Hypertension: Status: Chronic Asessment and Plan: -previously on 2.5mg amlodipine daily -BP elevated during hospitalization, being discharged with 5mg PO amlodipine daily Discharge Plan Disposition Patient Disposition: Home Condition: Stable Discharge Details Reason For Visit: pancreatitis, pancreatic pseudocysts Admit Date/Time: 05/05/23 21:06 Admit Provider: Dino Gagnon Attending Provider: Dino Gagnon [facility] Hospital Course: Patient presented with abdominal pain and poor PO intake secondary to pancreatits and large pesudocyst. Pain improved wth bowel rest and administration of IV dilaudid (last dose 2mg IV on 05/06/2023 at 21:44). On day of discharge her pain had significantly improved and she was tolerate PO intake. Home Meds and New Rx's Prescriptions: New amlodipine 5 mg Tablet 5 mg PO HS Qty: 90 1RF Continued methadone 10 mg/5 mL solution 130 mg PO DAILY losartan 100 mg tablet 100 mg PO DAILY Qty: 90 3RF levothyroxine 125 mcg capsule 125 mcg PO DAILY Qty: 90 0RF famotidine 40 mg tablet 40 mg PO DAILY Qty: 90 3RF epinephrine 0.3 mg/0.3 mL auto-injector 0.3 mg IM ONCE Qty: 1 2RF Rx Instructions: as a single dose; may repeat once Discontinued amlodipine 2.5 mg tablet 2.5 mg PO DAILY Qty: 90 3RF Discharge Instructions Instructions: Pancreatitis (DC) Activity:: Activity as Tolerated Equipment/Supplies:: No Equipment Needed Diet:: low fat Discharge Orders Discharge Orders: Discharge Order (Routine); Ordered 05/08/23 Ordered By: Derrell Oreilly DS: Summary Time Spent with Patient providing and/or coordinating discharge services: Greater than 30 minutes Status at Discharge Functional status at discharge: independent ambulation Overall status at discharge: patient is back to baseline Mental Status: mental status grossly normal Speech and Movement: speech and movement normal Mood: congruent mood Affect: normal affect Exam Psych Mental Status: mental status grossly normal Speech and Movement: speech and movement normal Mood: congruent mood Affect: normal affect DS: Data Vitals/I&O Vitals and I&O: Vital Signs Temperature 98.1 F 05/08/23 06:11 Temperature Source Tympanic 05/08/23 06:11 Pulse 62 05/08/23 06:11 Pulse Rhythm Regular 05/07/23 21:30 Pulse 66 05/05/23 22:01 Respiratory Rate 20 05/08/23 06:11 Respiratory Effort Normal, Non-Labored 05/07/23 21:30 Respiratory Depth Normal 05/07/23 21:30 Respiratory Pattern Normal 05/07/23 21:30 Blood Pressure 157/102 H 05/08/23 06:11 Blood Pressure Mean 85 05/06/23 01:01 Blood Pressure Position Sitting 05/05/23 13:20 Pulse Oximetry 96 05/08/23 06:11 Oxygen Delivery Method Room Air 05/08/23 06:11 Oxygen Flow Rate 0 05/08/23 06:11 Pain Level 0 05/07/23 21:30 Comment RN Notified 05/07/23 20:05 Intake & Output 05/07/23 05/08/23 05/08/23 17:59 05:59 17:59 Intake Total 950 / 950 Output Total 1900 / 1900 Balance -950 / -950 Intake: IV 950 / 950 Output: Urine 1900 / 1900 Other: Urine Color Yellow Urine Appearance Clear Urine Odor None Voiding Methods Toilet PFSH All Active Problems Pancreatitis (Chronic) 01/21/23 [facility]. -[facility] Opiate addiction (Acute) Pseudocyst of pancreas (Acute) Alcoholism (Acute) GERD (gastroesophageal reflux disease) (Chronic) Fatty liver disease, nonalcoholic (Chronic) Hypertension (Chronic) CKD (chronic kidney disease) stage 3, GFR 30-59 ml/min (Acute) Opioid use disorder (Chronic) Methadone through [facility] Hypothyroidism (Chronic) Generalized anxiety disorder (Chronic) Medical History Major depressive disorder Temporomandibular joint disorder Surgical History History of section (05/28/14) Family History Mother Alcohol abuse Depression Father Alcohol abuse Substance abuse Sister Depression Sister Substance abuse Depression Son No problems noted. Son No problems noted. Maternal Grandfather Colon cancer Skin cancer (melanoma) Type 2 diabetes mellitus Heart disease Maternal Grandmother Heart disease SLE (systemic lupus erythematosus) Osteoporosis Paternal Grandfather No problems noted. Paternal Grandmother No problems noted. 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 Pets and animals: Yes Pets and animals: cat(s), dog(s), hamster(s) and farm animals Sexually active: Yes Do you think of yourself as: straight/heterosexual Current gender identity: female What is your relationship status?: living with partner How often do you talk on the phone with friends or family?: three or more times per week How often do you get together with friends or relatives?: once per week How often do you attend caodaism or nondenominational services?: 1-3 times per year Do you belong to any clubs or organized social groups?: no Panel score (0-1 are the most socially isolated patients): 2 What type of physical activity do you participate in: none Duration: 15-30 minutes/day Frequency: 5-6 times per week Eloisa/Church: Nondenominational Special eloisa needs: No Seatbelt use: always Do you feel safe in your relationship?: Yes Female Reproductive History Menstrual control method: natural family planning History History 1 Para Hx # Term Pregnancies Multiple births 1 Hx # Pregnancies Ectopic pregnancies AB induced Hx Number of Living Children 2 AB spontaneous Time Spent with Patient Time Spent with Patient: <45 minutes (35min) Time was spent: preparing to see the patient(eg.review tests), obtaining and/or reviewing separately otained hiistory, referring, communicating with other health career development consultant, indepentently interpreting results, counseling the patient and care coordination
--- NOTE | 2023-05-08 12:58 | PDOC.CMDIS ---
Date of service: 05/08/23 Time of Service: 12:59 LACE Index Scoring Tool Questions: Length of Stay (in days): 2 Was the patient admitted via the E.D.?: Yes E.D. Visits: 2 Answers: Total Score: 7 Risk of Readmission: Low Risk Care Management Discharge Plan Reason for Hospitalization: pancreatitis, pancreatic pseudocyst Discharge Plan: Yamilet is discharged home via private vehicle with family. She will follow up with community providers and her discharge plan of care as instructed. No new services are ordered prior to discharge. Last dose letter is written and provided to patient. Patient/Family Education Needs: Review discharge instructions, limitations, medications and plan to follow up with community providers. Discuss ask me three.
== END 2023-05-08 12:35 | disposition home or self-care (01) | DRG 439 ==
LOC: ER 05-06 00:11 → MS 05-06 01:20
PROVIDERS: Registered Nurse Emergency; Admitting Provider Family Medicine; Emergency Provider Physician Assistant; PCP Nurse Practitioner Family; Visit Provider Family Medicine
DX: F11.20 Opioid dependence, uncomplicated (principal); K86.3 Pseudocyst of pancreas; F10.20 Alcohol dependence, uncomplicated; K86.1 Other chronic pancreatitis; I10 Essential (primary) hypertension; K21.9 Gastro-esophageal reflux disease without esophagitis; K75.81 Nonalcoholic steatohepatitis (NASH); I12.9 Hypertensive chronic kidney disease with stage 1 through stage 4 chronic kidney disease, or unspecified chronic kidney disease; N18.30 Chronic kidney disease, stage 3 unspecified; E03.9 Hypothyroidism, unspecified; F41.1 Generalized anxiety disorder; F32.9 Major depressive disorder, single episode, unspecified
CPT/HCPCS: 36415; 80048; 80053; 80307; 81025; 83690; 87637; 96365; 96366; 96375; 96376; 99285; 74177; 80320; 81003; 81015; 83735; 85025; 99223; 99232; 99233; 99239; J0131; J1170; J2405; J3490

== ENCOUNTER 2023-05-17 12:50 | Emergency (ER) | payer MEDICAID, SELFPAY ==
[2023-05-17 12:57] VITALS: BP 136/92; PULSE 73; RESP 20; TEMP 36.3; O2SAT 99
--- NOTE | 2023-05-17 13:00 | DI.CT_ITS ---
Exam(s) CT ABDOMEN PELVIS W EXAM: CT ABDOMEN PELVIS W CLINICAL HISTORY: lower abdominal pain, vomiting, hx of panc cyst TECHNIQUE: Imaging Protocol: Axial computed tomography images with coronal and sagittal reformatted images were created and reviewed CONTRAST MATERIAL: Intravenous: Omnipaque 350 Contrast volume:100 mL Oral: No COMPARISON: CT CT ABDOMEN PELVIS W from 05/05/2023 FINDINGS: ABDOMEN: Lung Bases: There is bilateral basilar atelectasis. Liver: Normal density. No measurable mass. Portal, Superior Mesenteric, and Splenic Veins: Unremarkable. Gallbladder and Biliary Tract: No radiodense calculus or dilation. Pancreas: Normal density, no abnormal calcifications or inflammatory process. Spleen: Normal. Adrenals: No masses seen. Kidneys: Normal size, contour and axis. No radiodense stones or obstructive uropathy. No masses seen. Abdominal Aorta: Abdominal portion non-dilated. Bowel: Mild wall thickening seen in the sigmoid colon. This can be seen with colitis. There is no e vidence of bowel obstruction. There is no evidence of appendicitis. Peritoneal Cavity: There is a small amount of pelvic and perihepatic ascites. No free air.There has been interval development of a 4.3 x 7 cm in capsulated fluid collection adjacent to the greater wall of the stomach. There are again seen in capsulated fluid collections associated with the tail of th e pancreas and in the right retroperitoneum. Lymph Nodes: Within normal limits. Bones: Within normal limits for the patient's age. Soft Tissues: Unremarkable. PELVIS: Bladder: Symmetric distention, no gross wall thickening. Reproductive Organs: Unremarkable as visualized. Lymph Nodes: Within normal limits. Bones: Within normal limits for the patient's age. IMPRESSION: 1. Persistent retroperitoneal fluid collections. 2. New pseudocyst associated with the greater curvature of the stomach. It measures 4.3 x 7 cm. 3. Mild thickening of the wall of the sigmoid colon which may represent a colitis. 4. Findings were discussed with Dr. Dumont at 3:09 p.m. on 05/17/2023. RADIATION DOSE DELIVERED: Total DLP DATA REPOSITORY: All CT scans at this facility are submitted to the National Radiology Data Registry (NRDR) Dose Index Registry (DIR) with the [employer] (A[employer]). RADIATION OPTIMIZATION: All CT scans at this facility use at least one of these dose optimization te chniques: automated exposure control; mA and/or kV adjustment per patient size (includes targeted exa ms where dose is matched to clinical indication); or iterative reconstruction.
--- NOTE | 2023-05-17 13:10 | ED.GENADUL_ITS ---
Discharge Plan Discharge Details Chief Complaint: Abd Prob Clinical Impression: Vomiting, Acute pancreatitis Primary Care Provider: Cherise Chambers ED Provider: Avery Dumont Home Meds and New Rx's Prescriptions: No Action methadone 10 mg/5 mL solution 130 mg PO DAILY losartan 100 mg tablet 100 mg PO DAILY Qty: 90 3RF levothyroxine 125 mcg capsule 125 mcg PO DAILY Qty: 90 0RF famotidine 40 mg tablet 40 mg PO DAILY Qty: 90 3RF epinephrine 0.3 mg/0.3 mL auto-injector 0.3 mg IM ONCE Qty: 1 2RF Rx Instructions: as a single dose; may repeat once amlodipine 5 mg Tablet 5 mg PO HS Qty: 90 1RF Medical Decision Making 38-year-old female with a past medical history of pancreatic pseudocyst, previous alcoholism who has not drunk any alcohol for the last few weeks, hypertension, fatty liver disease, hypothyroidism, who is scheduled to see Dr. Artis for her pseudocyst in 9 days, presents today for evaluation of abdominal pain and vomiting. Patient states that this morning at around 8 AM she had a summer sausage, symptoms were fine until 1 hour ago at noon when she suddenly had stabbing lower abdominal pain. She states that the nature of the pain is similar to her previous pancreatitis pains, however the location is different as it is present in the lower abdomen. She has vomited multiple times, but she denies any diarrhea. No chest pain. No shortness of breath. No blood in her vomitus. She denies having any dairy products recently. No other complaints at this time. Past surgical history is positive for . Physical exam demonstrates evidence of lower abdominal pain and tenderness. She is actively vomiting. Differential includes obstruction, pancreatitis, appendicitis. Symptoms less likely for ovarian cyst or torsion. Because of the change in her symptoms we will get repeat CT imaging, Zofran, rehydrate, monitor closely and reassess. 4:54 PM Laboratory work-up has returned, no white count or bandemia or left shift or fever. Electrolytes normal. Creatinine slightly elevated at 1.3. Calcium slightly high at 10.3. Lipase elevated at 120. She had been elevated before on her last admission but that went down prior to discharge. Suggesting acute pancreatitis again. Urinalysis shows no evidence of infection or significant blood. CT scan shows evidence of persistent retroperitoneal fluid collections, previous large old cysts, new pseudocyst associated with the greater curvature of the stomach, there is also mild thickening of the wall of the sigmoid colon. On reassessment patient's pain is notably improved. She has stopped vomiting and she is feeling much better. Did contact surgery and discussed the case with Dr. Osei. She reviewed the images, and with no fever White count she does not feel that the findings represent infectious colitis. She thinks this is likely secondary to the fluid causing mild edema. This certainly does sound appropriate with no white count or fever at all to suggest any evidence of infection at this time. In regards to the pseudocyst though she recommends further discussion with [facility]. We have placed a call out to them 1 hour ago, and are still waiting for callback. On reassessment the patient continues to feel better. Patient will be signed out to my colleague Dr. New for follow-up on [facility] callback. FINDINGS: ABDOMEN: Lung Bases: There is bilateral basilar atelectasis. Liver: Normal density. No measurable mass. Portal, Superior Mesenteric, and Splenic Veins: Unremarkable. Gallbladder and Biliary Tract: No radiodense calculus or dilation. Pancreas: Normal density, no abnormal calcifications or inflammatory process. Spleen: Normal. Adrenals: No masses seen. Kidneys: Normal size, contour and axis. No radiodense stones or obstructive uropathy. No masses seen. Abdominal Aorta: Abdominal portion non-dilated. Bowel: Mild wall thickening seen in the sigmoid colon. This can be seen with colitis. There is no evidence of bowel obstruction. There is no evidence of appendicitis. Peritoneal Cavity: There is a small amount of pelvic and perihepatic ascites. No free air.There has been interval development of a 4.3 x 7 cm in capsulated fluid collection adjacent to the greater wall of the stomach. There are again seen in capsulated fluid collections associated with the tail of the pancreas and in the right retroperitoneum. Lymph Nodes: Within normal limits. Bones: Within normal limits for the patient's age. Soft Tissues: Unremarkable. PELVIS: Bladder: Symmetric distention, no gross wall thickening. Reproductive Organs: Unremarkable as visualized. Lymph Nodes: Within normal limits. Bones: Within normal limits for the patient's age. IMPRESSION: 1. Persistent retroperitoneal fluid collections. 2. New pseudocyst associated with the greater curvature of the stomach. It measures 4.3 x 7 cm. 3. Mild thickening of the wall of the sigmoid colon which may represent a colitis. 4. Findings were discussed with Dr. Dumont at 3:09 p.m. on 05/17/2023. HPI General Date/Time Provider Initiated Documentation: 05/17/23 13:01 . HPI Narrative: 38-year-old female with a past medical history of pancreatic pseudocyst, previous alcoholism who has not drunk any alcohol for the last few weeks, hypertension, fatty liver disease, hypothyroidism, who is scheduled to see Dr. Artis for her pseudocyst in 9 days, presents today for evaluation of abdominal pain and vomiting. Patient states that this morning at around 8 AM she had a summer sausage, symptoms were fine until 1 hour ago at noon when she suddenly had stabbing lower abdominal pain. She states that the nature of the pain is similar to her previous pancreatitis pains, however the location is different as it is present in the lower abdomen. She has vomited multiple times, but she denies any diarrhea. No chest pain. No shortness of breath. No blood in her vomitus. She denies having any dairy products recently. No other complaints at this time. Related Data Home Medications Medication Instructions Recorded Confirmed epinephrine 0.3 mg/0.3 mL 0.3 mg (0.3 mL) IM ONCE #1 ea 07/30/20 05/17/23 injection, auto-injector methadone 10 mg/5 mL oral solution 130 mg PO DAILY 09/15/22 05/17/23 losartan 100 mg tablet 100 mg PO DAILY #90 tabs 12/10/22 05/17/23 famotidine 40 mg tablet 40 mg PO DAILY #90 tabs 03/14/23 05/17/23 levothyroxine 125 mcg capsule 125 mcg PO DAILY #90 tab-caps 03/14/23 05/17/23 amlodipine 5 mg tablet 5 mg PO HS #90 tabs 05/08/23 05/17/23 Previous Rx's Medication Instructions Recorded epinephrine 0.3 mg/0.3 mL 0.3 mg (0.3 mL) IM ONCE #1 ea 07/30/20 injection, auto-injector losartan 100 mg tablet 100 mg PO DAILY #90 tabs 12/10/22 famotidine 40 mg tablet 40 mg PO DAILY #90 tabs 03/14/23 levothyroxine 125 mcg capsule 125 mcg PO DAILY #90 tab-caps 03/14/23 amlodipine 5 mg tablet 5 mg PO HS #90 tabs 05/08/23 Allergies Allergy/AdvReac Type Severity Reaction Status Date / Time venom-honey bee Allergy Severe ANAPHYLAXSI Verified 05/05/23 13:23 [bee venom (honey bee)] S General Stated Complaint: Abd Prob NAKUL: 3 Review of Systems All systems reviewed & are unremarkable except as noted in HPI and below PFSH All Active Problems (Updated 05/17/23 @ 16:59 by Avery Dumont DO) Vomiting (Acute) Acute pancreatitis (Acute) Opiate addiction (Acute) Pseudocyst of pancreas (Acute) Alcoholism (Acute) GERD (gastroesophageal reflux disease) (Chronic) Fatty liver disease, nonalcoholic (Chronic) Hypertension (Chronic) CKD (chronic kidney disease) stage 3, GFR 30-59 ml/min (Acute) Opioid use disorder (Chronic) Methadone through [facility] Hypothyroidism (Chronic) Generalized anxiety disorder (Chronic) Medical History Major depressive disorder Temporomandibular joint disorder Surgical History History of section (05/28/14) Family History Mother Alcohol abuse Depression Father Alcohol abuse Substance abuse Sister Depression Sister Substance abuse Depression Son No problems noted. Son No problems noted. Maternal Grandfather Colon cancer Skin cancer (melanoma) Type 2 diabetes mellitus Heart disease Maternal Grandmother Heart disease SLE (systemic lupus erythematosus) Osteoporosis Paternal Grandfather No problems noted. Paternal Grandmother No problems noted. 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 Pets and animals: Yes Pets and animals: cat(s), dog(s), hamster(s) and farm animals Sexually active: Yes Do you think of yourself as: straight/heterosexual Current gender identity: female What is your relationship status?: living with partner How often do you talk on the phone with friends or family?: three or more times per week How often do you get together with friends or relatives?: once per week How often do you attend confucianist or taoism services?: 1-3 times per year Do you belong to any clubs or organized social groups?: no Panel score (0-1 are the most socially isolated patients): 2 What type of physical activity do you participate in: none Duration: 15-30 minutes/day Frequency: 5-6 times per week Eloisa/Holiness: Latter Day Special eloisa needs: No Seatbelt use: always Do you feel safe in your relationship?: Yes Female Reproductive History Menstrual control method: natural family planning History History 1 Para Hx # Term Pregnancies Multiple births 1 Hx # Pregnancies Ectopic pregnancies AB induced Hx Number of Living Children 2 AB spontaneous Exam Narrative Exam Narrative: 1.Const: Well-nourished, Well-developed, appearing stated age 2.Eyes: PERRL, no conjunctival injection, and symmetrical lids. 3.ENT: Atraumatic external nose and ears. Moist MM. Neck: Symmetric, trachea midline, No thyromegaly. 4.CVS: +S1/S2, No murmurs or gallops. Peripheral pulses 2+ and equal in all extremities. Brisk capillary refill in all extremities. 5.RESP: Unlabored respiratory effort. Clear to auscultation bilaterally. No wheezes rales or rhonchi 6.GI: Soft, nondistended, no guarding or rebound, mild tenderness throughout the lower abdomen on palpation. Pain in the right lower and left lower quadrants. No epigastric tenderness. Negative Silva sign. Bowel sounds are reduced. 7.MSK: Normocephalic/Atraumatic, Extremities w/o deformity or ttp No cyanosis or clubbing, Normal movement of all extremities 8.Skin: Warm, Dry. No rashes or lesions. 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 Sensation grossly intact, no focal neurologic deficits. 10.Psych: (AAO) x3. Appropriate mood and affect Course Vital Signs Vital signs: Vital Signs Temperature 36.3 C L 05/17/23 12:57 Pulse 73 05/17/23 12:57 Respiratory Rate 20 05/17/23 12:57 Blood Pressure 136/92 H 05/17/23 12:57 Pulse Oximetry 99 05/17/23 12:57 Temperature 36.3 C L 05/17/23 12:57 Temperature Source Core 05/17/23 12:57 Pulse 73 05/17/23 12:57 Respiratory Rate 20 05/17/23 12:57 Respiratory Effort Normal 05/17/23 13:02 Blood Pressure 136/92 H 05/17/23 12:57 Blood Pressure Position Supine 05/17/23 12:57 Pulse Oximetry 99 05/17/23 12:57 Oxygen Delivery Method Room Air 05/17/23 12:57 Oxygen Flow Rate 0 05/17/23 12:57 Pain Level 10 05/17/23 12:57
[2023-05-17] MEDS: Normal Saline 1,000 ML 1000 ML IV (13:12)
[2023-05-17 13:21] VITALS: BP 136/92; PULSE 73; RESP 20; O2SAT 99
[2023-05-17 13:21] LABS: Abs Immature Grans 0.04 10^3/uL (0.0-0.06); Absolute Basophil Count 0.03 10^3/uL (0.0-0.2); Absolute Eosinophil Count 0.21 10^3/uL (0.0-0.7); Absolute Lymphocyte Count 2.49 10^3/uL (1.2-3.4); Absolute Monocyte Count 0.32 10^3/uL (0.1-0.8); Absolute Neutrophil Count 6.65 10^3/uL (1.2-6.7); Basophils % 0.3; Eosinophils % 2.2; HCT 45.2 % (36.0-46.0); HGB 14.6 g/dL (11.2-15.7); Immature Grans % 0.4; Lymphocytes % 25.6; MCH 28.1 pg (27.0-33.0); MCHC 32.3 % (32.0-36.0); MCV 87 fL (80-95); Monocytes % 3.3; Neutrophils % 68.2; Platelet Count 453 10^3/uL (130-400); RDW 15.9 % (11.7-14.6); RDW-SD 50.9 fL; WBC 9.74 10^3/uL (4.4-10.8)
[2023-05-17] MEDS: Ondansetron 4 MG/2 ML VIAL IVP (13:27)
[2023-05-17 13:38] LABS: ALT 44 U/L (14-59); AST 34 U/L (15-37); Albumin 4.4 g/dL (3.4-5.0); Alkaline Phosphatase 101 U/L (46-116); Anion Gap 10.4 mmol/L (3-11); BUN 17 mg/dL (7-18); Bilirubin, Total 0.4 mg/dL (0.2-1.0); CO2 28.6 mmol/L (21.0-32.0); CREATININE 1.3 mg/dL (0.55-1.02); Calcium 10.3 mg/dL (8.5-10.1); Chloride 103 mmol/L (98-107); Estimated GFR 53.64 (mL/min/1.73m2); Glucose 123 mg/dL (74-106); Lipase 120 U/L (16-77); Potassium 3.8 mmol/L (3.5-5.1); Sodium 142 mmol/L (136-145)
--- NOTE | 2023-05-17 13:45 | RT.EKG_ITS ---
APPROVED REPORT Exam: Resting ECG Reason for Exam: bradycardia Patient Location: E HR:70 bpm ECG Measurements Heart Rate [address] 179 P 17 QRSd 95 QRS 8 QT 441 T -10 QTc 476 Conclusion Sinus rhythm...normal P axis, V-rate 60- 99 Nonspecific T abnormalities, anterior leads...T <-0.10mV, V2-V4 Physician:Inverted t waves in V1-3 and III. unchanged from prior ekg. QT stable compared to priors. n o stemi
[2023-05-17] MEDS: Ketorolac 15 MG/ML VIAL IVP (13:48)
[2023-05-17] MEDS: HYDROmorphone 2 MG/ML SYR 1 MG IVP (13:48)
[2023-05-17] MEDS: Metoclopramide 10 MG/2 ML VIAL IVP (13:59)
[2023-05-17] MEDS: Lactated Ringers 1,000 ML 1000 ML IV (14:17)
[2023-05-17] MEDS: Normal Saline - Diluent 50 ML VIAL IJ (14:38)
[2023-05-17] MEDS: Omnipaque 350 MG/ML 100 ML BTL IJ (14:38)
[2023-05-17] MEDS: Normal Saline Flush 10 ML SYR IVP (14:38)
[2023-05-17 15:21] LABS: Bilirubin Negative (Negative); Blood Negative (Negative); Clarity Clear (Clear); Glucose Negative (Negative); Ketones Trace mg/dL (Negative); Leukocyte Esterase Negative (Negative); Nitrite Negative (Negative); Specific Gravity >= 1.030 (1.005-1.025); Urobilinogen 0.2 mg/dL (Up to 0.2); pH 5.5 (5-8)
[2023-05-17 15:40] LABS: Bacteria Few HPF (Negative); C & S Indicated? No/Sq. Contamination; Casts Negative LPF (Negative); Crystals Negative HPF (Negative); Epithelial Cells Moderate HPF (Negative); Mucus Trace (Negative); RBC 0-2 HPF (0-2)
[2023-05-17 16:52] VITALS: BP 138/84; PULSE 58; RESP 14; O2SAT 95
--- NOTE | 2023-05-17 17:06 | W.EDPROG ---
Date of service: 05/17/23 Time of Service: 17:06 Medical Decision Making I received signout on this 38-year-old female with a history of pancreatitis now in the emergency department with recurrent epigastric pain and nausea vomiting pending GI consult at [facility]. She is feeling generally improved. General surgery has been consulted and felt that the patient's CT scan was reassuring against colitis. Will reassess following consult with [facility] GI. 5:27 PM I spoke with Dr. Jaye Up from GI at [facility]. She advised that if the patient was able to tolerate p.o. and is not nauseous or vomiting that she be appropriate for empiric trial of expectant outpatient management with outpatient GI follow-up and 9 days at [facility]. We will reassess the patient. 5:37 PM I met with the patient and she was feeling improved. Pain was managed. She was not nauseous. She is interested in discharge. I discussed return indications including any worsening abdominal pain any inability to tolerate p.o. or any other concerns. Otherwise she will follow-up at [facility] in 9 days. We will send her with a short course of metoclopramide to use as needed for nausea. Sign Out Sign Out Data: Sign Out Comment: Mild pancreatitis, pancreatic pseudocyst, pending [facility] consult for follow-up on CT imaging and disposition recommendations. Last updated by Avery Dumont DO at 05/17/23 17:07 Discharge Plan Disposition Patient Disposition: Home Discharge Details Clinical Impression: Vomiting, Acute pancreatitis, Pseudocyst of pancreas Primary Care Provider: Cherise Chambers ED Provider: Dino New Kimberly Meds and New Rx's Prescriptions: New metoclopramide HCl 5 mg tablet 5 mg PO PRN PRNQty: 3 0RF Rx Instructions: administer 30 minutes before meals Continued methadone 10 mg/5 mL solution 130 mg PO DAILY losartan 100 mg tablet 100 mg PO DAILY Qty: 90 3RF levothyroxine 125 mcg capsule 125 mcg PO DAILY Qty: 90 0RF famotidine 40 mg tablet 40 mg PO DAILY Qty: 90 3RF epinephrine 0.3 mg/0.3 mL auto-injector 0.3 mg IM ONCE Qty: 1 2RF Rx Instructions: as a single dose; may repeat once amlodipine 5 mg Tablet 5 mg PO HS Qty: 90 1RF Discharge Instructions Additional Instructions: You are seen in the emergency department for your abdominal pain. You are found to have another pancreatic pseudocyst. As we discussed, please keep to a light diet and avoid greasy and oily foods. Please follow-up with the gastroenterology team at [facility] later this month as previously scheduled. Please return to the emergency department if you develop worsening abdominal pain nausea vomiting or have any other concerns. If you develop nauseousness a short prescription for antinausea medicines has been sent to your pharmacy. Please take these as needed. Discharge Data Discharge Date/Time-TO BE ENTERED AT DEPARTURE: 05/17/23 18:11
[2023-05-17 17:51] VITALS: PULSE 61; RESP 14; TEMP 34.6; O2SAT 98
--- NOTE | 2023-05-17 17:57 | NUR.NOTE ---
Nursing Note: blood was reported to the doctor, upon discharge vitals.
== END 2023-05-17 18:11 | disposition home or self-care (01) ==
PROVIDERS: Student in an Organized Health Care Education/Training Program; Emergency Provider Emergency Medicine; PCP Nurse Practitioner Family
DX: K85.90 Acute pancreatitis without necrosis or infection, unspecified (principal); K86.3 Pseudocyst of pancreas; R11.10 Vomiting, unspecified
CPT/HCPCS: 36415; 80053; 83690; 93005; 96374; 99285; 74177; 81003; 81015; 85025; 93010; J1170; J1885; J2405; J2765; J3490

== ENCOUNTER 2023-06-16 17:15 | Inpatient (IN) | payer MEDICAID, SELFPAY ==
[2023-06-16] VITALS (29 sets, daily range): BP systolic 101–119; BP diastolic 49–82; PULSE 62–103; RESP 13–23; TEMP 36.1; O2SAT 92–98
[2023-06-16 18:10] LABS: Abs Immature Grans 0.24 10^3/uL (0.0-0.06); Absolute Basophil Count 0.06 10^3/uL (0.0-0.2); Absolute Eosinophil Count 0.02 10^3/uL (0.0-0.7); Absolute Lymphocyte Count 1.41 10^3/uL (1.2-3.4); Basophils % 0.4; Eosinophils % 0.1; HGB 9.9 g/dL (11.2-15.7); Immature Grans % 1.5; Lymphocytes % 9.1; MCH 27.5 pg (27.0-33.0); MCHC 31.9 % (32.0-36.0); MCV 86 fL (80-95); Monocytes % 9.5; Neutrophils % 79.4; Platelet Count 556 10^3/uL (130-400); RDW 15.5 % (11.7-14.6); RDW-SD 49.4 fL
[2023-06-16 18:11] LABS: Absolute Monocyte Count 1.47 10^3/uL (0.1-0.8); Absolute Neutrophil Count 12.31 10^3/uL (1.2-6.7)
[2023-06-16] MEDS: Lactated Ringers 1,000 ML 1000 ML IV ×2 (18:13→19:43)
[2023-06-16] MEDS: Metoclopramide 10 MG/2 ML VIAL IVP (18:13)
[2023-06-16] MEDS: Omnipaque 350 MG/ML 100 ML BTL IJ (18:23)
[2023-06-16 18:25] LABS: ALT 26 U/L (14-59); AST 22 U/L (15-37); Alkaline Phosphatase 71 U/L (46-116); Amylase 20 U/L (25-115); Anion Gap 11.4 mmol/L (3-11); BUN 28 mg/dL (7-18); Bilirubin, Total 1.1 mg/dL (0.2-1.0); CO2 25.6 mmol/L (21.0-32.0); CREATININE 2.8 mg/dL (0.55-1.02); Calcium 9.7 mg/dL (8.5-10.1); Chloride 95 mmol/L (98-107); Estimated GFR 21.36 (mL/min/1.73m2); Glucose 90 mg/dL (74-106); Lipase 17 U/L (16-77); Magnesium 2.5 mg/dL (1.8-2.4); Sodium 132 mmol/L (136-145); Total Protein 8.4 g/dL (6.4-8.2)
[2023-06-16] MEDS: Normal Saline - Diluent 50 ML VIAL IJ (18:25)
--- NOTE | 2023-06-16 18:28 | DI.CT_ITS ---
Exam(s) CT ABDOMEN PELVIS W EXAM: CT ABDOMEN PELVIS W CLINICAL HISTORY: abdominal pain, recent pancreatic stent placement,. TECHNIQUE: Imaging Protocol: Axial computed tomography images with coronal and sagittal reformatted images were created and reviewed CONTRAST MATERIAL: Intravenous: Omnipaque 350 Contrast volume:100 ml Oral: / no COMPARISON: CT CT ABDOMEN PELVIS W from 05/05/[address] ABDOMEN PELVIS W from 05/17/2023 FINDINGS: ABDOMEN and PELVIS: Lung Bases: Normal where visualized. Liver: Normal density. No measurable mass. Gallbladder and biliary tract: No radiodense calculus or dilation. Pancreas: A somewhat atrophic. Decreased size of pseudocyst seen near the tail of the pancreas. Spleen: Normal. Kidneys: Normal size, contour and axis. No radiodense stones. There is now mild enlargement of the r ight kidney and delayed nephrogram. There is mild hydronephrosis. This is likely secondary to compr ession by the large pseudocyst and adjacent inflammation. No suspicious masses seen. Adrenal glands: No masses seen. Vasculature: Abdominal aorta non-dilated. Soft tissues: Unremarkable. Bladder: No gross wall thickening. No calculi.No focal mass. Bowel: No obstruction. No bowel wall thickening. Appendix normal. Peritoneal cavity: No ascites. A stent has now been placed at the upper aspect of the large right-si ded retroperitoneal pseudocyst. The appears to communicate with the duodenum. There is now marked s urrounding inflammation, wall thickening of the pseudocyst collection as well as multiple air bubbles . There is marked thickening of the adjacent duodenal sweep. It does not appear to have changed in size. It extends of from the level of the head of the pancreas inferiorly anterior to the psoas musc le at the right lower quadrant. Bones: Unremarkable for age. Reproductive organs: Within normal limits. Lymph nodes: Unremarkable. IMPRESSION:: The previously noted large right sided pseudocyst now has the appearance of an abscess with marked wall thickening and air bubbles. A stent is now noted which appears to communicate with the duodenum. There is marked inflammation of the duodenal sweep as well as mild secondary hydronep hrosis of the right kidney. Findings were called to Muna Merchant of the emergency department RADIATION DOSE DELIVERED: Total DLP DATA REPOSITORY: All CT scans at this facility are submitted to the National Radiology Data Registry (NRDR) Dose Index Registry (DIR) with the [employer] (ACR). RADIATION OPTIMIZATION: All CT scans at this facility use at least one of these dose optimization te chniques: automated exposure control; mA and/or kV adjustment per patient size (includes targeted exa ms where dose is matched to clinical indication); or iterative reconstruction.
[2023-06-16] MEDS: PIPERACILLIN/TAZO 3.375 GM in Normal Saline 50 ML IVPB (19:00)
[2023-06-16 19:40] LABS: Lactate 0.5 mmol/L (0.6-1.4)
[2023-06-16 21:28] LABS: Bilirubin Negative (Negative); Blood Negative (Negative); Clarity Clear (Clear); Glucose Negative (Negative); Ketones Negative (Negative); Leukocyte Esterase Negative (Negative); Nitrite Negative (Negative); Specific Gravity <= 1.005 (1.005-1.025); Urobilinogen 0.2 mg/dL (Up to 0.2); pH 5.5 (5-8)
[2023-06-16 21:35] LABS: Bacteria Rare HPF (Negative); C & S Indicated? No; Casts Negative LPF (Negative); Crystals Negative HPF (Negative); Epithelial Cells Rare HPF (Negative); Mucus Negative (Negative); RBC Negative HPF (0-2); WBC 0-2 HPF (0-5)
[2023-06-16] MEDS: Lactated Ringers 1,000 ML 150 ML IV (21:54)
--- NOTE | 2023-06-16 22:21 | ED.GENADUL_ITS ---
Discharge Plan Disposition Patient Disposition: Admit to [facility] Condition: Serious Discharge Details Clinical Impression: Acute renal failure (ARF), Sepsis, Abscess of pancreas Admit Date/Time: 06/17/23 01:01 Admit Provider: Duglas Byrnes Attending Provider: Duglas Byrnes Primary Care Provider: Cherise Chambers ED Provider: Dino New Discharge Data Discharge Date/Time-TO BE ENTERED AT DEPARTURE: 06/17/23 02:45 Discharge Physician: Duglas Byrnes Medical Decision Making This 38-year-old female with complex medical history with recent pancreatic stent placement presents with worsening abdominal pain, tachycardia, exquisitely tender abdominal exam and flank tenderness, diagnostic labs, anemia, hemoglobin from 13-9, acute renal failure, creatinine from 1.2-2.8 in the last 2 weeks, CT was ordered for further evaluation prior to return of creatinine as the patient's last creatinine was 1.2, CT shows mild right hydro with pancreatic abscess and likely stent infection per radiology interpretation and my review [facility] was called immediately and case was discussed with GI, who believes the patient should be transferred immediately, he advocated excellently for the patient Patient is agreeable to transfer to [facility] at this time, I spoke with the hospitalist, Dr Gurjit ibarra who is agreeable to admitting the patient The patient's tachycardia is actually improved she is in the low 80s at time of reassessment, she remains hemodynamically stable, she was given 4 mg of morphine secondary to pain, she is received 2 L of LR and now has 150 cc/h infusing She received 3.375 of Zosyn She is remain n.p.o. As she requires gastroenterology and likely IR for further intervention and assessment, she will be transferred to [facility] On reassessment, patient will likely not be accepted into the morning secondary to capacity at [facility], she will be admitted to the intensive care unit for overnight observation and IV antibiotics with fluid resuscitation pending transfer to [facility] HPI General Date/Time Provider Initiated Documentation: 06/16/23 17:30 . HPI Narrative: This 38-year-old female with history of pancreatitis, opiate addiction, alcoholism, hypertension, presents with report of abdominal pain, flank pain, chills, generalized myalgias, status post pancreatic pseudocyst stent placement 2 weeks ago at [facility]. States she feels dramatically worse and fell like she was going to pass out all day today at work. Her pain in her abdomen has been increasing dramatically. She denies any urinary complaints. Denies any fever or chills. Denies chance of . Has not had any alcohol or substance use for the past month per patient. Has been nauseous and unable to eat or drink much, no vomiting. Related Data Home Medications Medication Instructions Recorded Confirmed epinephrine 0.3 mg/0.3 mL 0.3 mg (0.3 mL) IM ONCE #1 ea 07/30/20 06/16/23 injection, auto-injector methadone 10 mg/5 mL oral solution 130 mg PO DAILY 09/15/22 06/16/23 losartan 100 mg tablet 100 mg PO DAILY #90 tabs 12/10/22 06/16/23 levothyroxine 125 mcg capsule 125 mcg PO DAILY #90 tab-caps 03/14/23 06/16/23 amlodipine 5 mg tablet 5 mg PO HS #90 tabs 05/08/23 06/16/23 Previous Rx's Medication Instructions Recorded epinephrine 0.3 mg/0.3 mL 0.3 mg (0.3 mL) IM ONCE #1 ea 07/30/20 injection, auto-injector losartan 100 mg tablet 100 mg PO DAILY #90 tabs 12/10/22 levothyroxine 125 mcg capsule 125 mcg PO DAILY #90 tab-caps 03/14/23 amlodipine 5 mg tablet 5 mg PO HS #90 tabs 05/08/23 Allergies Allergy/AdvReac Type Severity Reaction Status Date / Time venom-honey bee Allergy Severe ANAPHYLAXSI Verified 06/16/23 21:30 [bee venom (honey bee)] S General Stated Complaint: GenMedical NAKUL: 3 PFSH All Active Problems (Updated 06/18/23 @ 00:01 by GAVINO MCCULLOUGH) Abscess of pancreas (Acute) Opiate addiction (Chronic) Pseudocyst of pancreas (Chronic) Alcoholism (Chronic) GERD (gastroesophageal reflux disease) (Chronic) Fatty liver disease, nonalcoholic (Chronic) Hypertension (Chronic) CKD (chronic kidney disease) stage 3, GFR 30-59 ml/min (Chronic) Opioid use disorder (Chronic) Methadone through [facility] Hypothyroidism (Chronic) Generalized anxiety disorder (Chronic) Medical History Major depressive disorder Temporomandibular joint disorder Surgical History History of section (05/28/14) Family History Mother Alcohol abuse Depression Father Alcohol abuse Substance abuse Sister Depression Sister Substance abuse Depression Son No problems noted. Son No problems noted. Maternal Grandfather Colon cancer Skin cancer (melanoma) Type 2 diabetes mellitus Heart disease Maternal Grandmother Heart disease SLE (systemic lupus erythematosus) Osteoporosis Paternal Grandfather No problems noted. Paternal Grandmother No problems noted. 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 Pets and animals: Yes Pets and animals: cat(s), dog(s), hamster(s) and farm animals Sexually active: Yes Do you think of yourself as: straight/heterosexual Current gender identity: female What is your relationship status?: living with partner How often do you talk on the phone with friends or family?: three or more times per week How often do you get together with friends or relatives?: once per week How often do you attend muslim or gnosticist services?: 1-3 times per year Do you belong to any clubs or organized social groups?: no Panel score (0-1 are the most socially isolated patients): 2 What type of physical activity do you participate in: none Duration: 15-30 minutes/day Frequency: 5-6 times per week Eloisa/Taoism: Buddhist Special eloisa needs: No Seatbelt use: always Do you feel safe in your relationship?: Yes Female Reproductive History Menstrual control method: natural family planning History History 1 Para Hx # Term Pregnancies Multiple births 1 Hx # Pregnancies Ectopic pregnancies AB induced Hx Number of Living Children 2 AB spontaneous Course Vital Signs Vital signs: Vital Signs Temperature 36.1 C L 06/16/23 17:21 Pulse 103 H 06/16/23 17:21 Respiratory Rate 14 06/16/23 17:21 Blood Pressure 119/82 06/16/23 17:21 Pulse Oximetry 98 06/16/23 17:21 Temperature 36.1 C L 06/16/23 17:21 Temperature Source Skin 06/16/23 17:21 Pulse 71 06/16/23 22:01 Pulse 73 06/16/23 22:10 Respiratory Rate 23 06/16/23 22:10 Respiratory Effort Normal, Non-Labored 06/16/23 17:38 Respiratory Depth Normal 06/16/23 17:38 Respiratory Pattern Normal 06/16/23 17:38 Blood Pressure 110/56 L 06/16/23 22:01 Blood Pressure Mean 72 06/16/23 22:01 Blood Pressure Position Sitting 06/16/23 17:21 Pulse Oximetry 94 06/16/23 22:10 Oxygen Delivery Method Room Air 06/16/23 17:21 Oxygen Flow Rate 0 06/16/23 17:21 Pain Level 4 06/16/23 17:38 Comment pt states constant flank/kidney pain 06/16/23 17:38 Lab/Test Results Lab/Test Results: 06/16/23 20:16 Blood Blood Culture - Pending 06/16/23 19:58 Blood Blood Culture - Pending Laboratory Tests Range/Units 06/16/23 06/16/23 06/16/23 17:35 19:35 21:23 WBC (4.4-10.8) 10^3/uL 15.50 H RBC (3.93-5.22) 10^6/uL 3.60 L Hgb (11.2-15.7) g/dL 9.9 L Hct (36.0-46.0) % 31.0 L MCV (80-95) fL 86 MCH (27.0-33.0) pg 27.5 MCHC (32.0-36.0) % 31.9 L RDW (11.7-14.6) % 15.5 H Plt Count (130-400) 10^3/uL 556 H MPV (8.0-11.0) fL 10.0 Immature Gran % 1.5 Neutrophils % 79.4 Lymphocytes % 9.1 Monocytes % 9.5 Eosinophils % 0.1 Basophils % 0.4 Nucleated RBC % (0.0-0.3) % 0.0 Absolute Neutrophils (1.2-6.7) 10^3/uL 12.31 H Absolute Lymphocytes (1.2-3.4) 10^3/uL 1.41 Absolute Monocytes (0.1-0.8) 10^3/uL 1.47 H Absolute Eosinophils (0.0-0.7) 10^3/uL 0.02 Absolute Basophils (0.0-0.2) 10^3/uL 0.06 VBG Lactate (0.6-1.4) mmol/L 0.5 L Sodium (136-145) mmol/L 132 L Potassium (3.5-5.1) mmol/L 4.0 Chloride (98-107) mmol/L 95 L Carbon Dioxide (21.0-32.0) mmol/L 25.6 Anion Gap (3-11) mmol/L 11.4 H BUN (7-18) mg/dL 28 H Creatinine (0.55-1.02) mg/dL 2.8 H Est GFR (CKD-EPI 2020) (mL/min/1.73m2) 21.36 Glucose (74-106) mg/dL 90 Calcium (8.5-10.1) mg/dL 9.7 Magnesium (1.8-2.4) mg/dL 2.5 H Total Bilirubin (0.2-1.0) mg/dL 1.1 H AST (15-37) U/L 22 ALT (14-59) U/L 26 Alkaline Phosphatase (46-116) U/L 71 Total Protein (6.4-8.2) g/dL 8.4 H Albumin (3.4-5.0) g/dL 3.0 L Amylase (25-115) U/L 20 L Lipase (16-77) U/L 17 Urine Color (Yellow) Yellow Urine Clarity (Clear) Clear Urine pH (5-8) 5.5 Ur Specific [place] (1.005-1.025) <= 1.005 Urine Protein (Negative) mg/dL Trace H Urine Ketones (Negative) mg/dL Negative Urine Blood (Negative) Negative Urine Nitrite (Negative) Negative Urine Bilirubin (Negative) Negative Urine Urobilinogen (Up to 0.2) mg/dL 0.2 Ur Leukocyte Esterase (Negative) Negative Urine RBC (0-2) HPF Negative Urine WBC (0-5) HPF 0-2 Ur Epithelial Cells (Negative) HPF Rare Urine Crystals (Negative) HPF Negative Urine Bacteria (Negative) HPF Rare Urine Casts (Negative) LPF Negative Urine Mucus (Negative) Negative Ur Culture Indicated? No Urine Glucose (Negative) mg/dL Negative Critical Care Time Critical Care Time Attestation: Approximately 60 minutes of critical care time were performed secondary to pancreatic abscess in the presence of a recent stent placed for pseudocyst, meeting sepsis criteria without septic shock, IV antibiotics, IV fluid resuscitation with acute renal failure, CT imaging interpretation and review, discussion with radiologist regarding CT findings review of diagnostic lab work, consultation with specialist team at [facility] and transferred to the intensive care unit at [facility]
[2023-06-17] VITALS (63 sets, daily range): BP systolic 99–110; BP diastolic 49–67; PULSE 63–81; RESP 15–25; TEMP 36.1–38.7; O2SAT 91–97
--- NOTE | 2023-06-17 00:19 | ED.PROG_ITS ---
Date of service: 06/17/23 Time of Service: 00:22 Medical Decision Making I received signout on this 38-year-old female status post recent pancreatic stent now accepted in transfer to back to [facility] in the setting of concern for peripancreatic abscess. Her lactate was negative. She has of a significant ROYAL however she has been urinating. She has been mentating well. All of her maps have been above 65. She is not tachycardic. She was resting comfortably when I saw her. There was concern over possibly decompensating with a blood pressure not 100/50. When I reassessed her her blood pressure was 102/59 with a MAP of 71. We will touch base with [facility] concerning possibility of earlier transfer. She has received a total of 2 L of lactated Ringer's and is receiving maintenance fluids at 150 cc an hour. 12:38 AM I spoke with Drs. Jacobson and Joel from the critical care team at [facility]. I relayed the patient's current status to them and they did not feel that the patient met any acute needs for MICU level of transfer. They advised proceeding with current plan to have the patient transferred later today to the stepdown service at [facility]. We will update Dr. Byrnes to request local hospitalization. 12:43 AM I spoke again with Dr. Byrnes who agreed to hospitalize the patient transiently before she is transferred to [facility] later on today. I have ordered a repeat basic metabolic panel. Discharge Plan Disposition Patient Disposition: Admit to [facility] Specific Acute Inpt Facility: [facility] Condition: Serious Discharge Details Clinical Impression: Acute renal failure (ARF), Sepsis, Abscess of pancreas Primary Care Provider: Cherise Chambers ED Provider: Dino New Home Meds and New Rx's Prescriptions: No Action methadone 10 mg/5 mL solution 130 mg PO DAILY losartan 100 mg tablet 100 mg PO DAILY Qty: 90 3RF levothyroxine 125 mcg capsule 125 mcg PO DAILY Qty: 90 0RF epinephrine 0.3 mg/0.3 mL auto-injector 0.3 mg IM ONCE Qty: 1 2RF Rx Instructions: as a single dose; may repeat once amlodipine 5 mg Tablet 5 mg PO HS Qty: 90 1RF
--- NOTE | 2023-06-17 00:43 | W.PM.HP.N ---
Date of service: 06/17/23 Time of Service: 00:43 Assessment and Plan Assessment and plan (1) Abscess of pancreas: Start date: 06/17/23 Status: Acute Assessment and plan: This is a 38-year-old lady with complications of a pancreatic pseudocyst with recent stenting [address] [facility] and now presenting with increasing abdominal pain and mild leukocytosis as well as worsening renal function requiring IV fluid resuscitation. She is requiring pain control and does run a low blood pressure which is chronic though she is on several antihypertensives. She is having IV fluid resuscitation and Zosyn IV will be continued pending transfer to [facility] to the hospitalist service with GI consulting. She has been accepted pending bed availability. She does have leukocytosis and low blood pressure but does not have tachycardia or fever and does not meet sepsis criteria at this time. She will be placed in the ICU because of her low blood pressure and infection for the possibility of advancing to septic shock and requiring vasopressors. She is a full code. (2) Pseudocyst of pancreas: Status: Chronic Assessment and plan: Patient does have a chronic pseudocyst but now this complicated with pancreatic stent and abscessing as well as inflammation of the duodenum. She is pending transfer to [facility] to the hospitalist service and GI consulted. (3) Alcoholism: Status: Chronic Assessment and plan: Patient states she has not had an alcoholic drink for months but alcohol level and urine drug screen were ordered. Monitor closely for any signs or symptoms of withdrawal though this seems unlikely with her history. (4) Opiate addiction: Status: Chronic Assessment and plan: Patient is currently on 130 mg methadone daily with dose to be given hopefully at [facility] after confirmed with the clinic prior to administration. If transfer is delayed this could be given at this institution. Qualifiers: Substance use status: in remission Qualified Code(s): F11.21 - Opioid dependence, in remission (5) CKD (chronic kidney disease) stage 3, GFR 30-59 ml/min: Status: Chronic Assessment and plan: With acute kidney injury secondary to abscess of the pancreas with inflammation. GFR has dropped into the range of stage IV CKD this appears to be only acute status. She does have a normal GFR earlier this year. Fluid resuscitation will continue. Qualifiers: Chronic kidney disease stage 3 subtype: stage 3a (GFR 45-59) Qualified Code(s): N18.31 - Chronic kidney disease, stage 3a (6) Hypertension: Status: Chronic Assessment and plan: Presently hypotensive with outpatient medications held for now. Qualifiers: Hypertension type: primary hypertension Qualified Code(s): I10 - Essential (primary) hypertension (7) Hypothyroidism: Status: Chronic Assessment and plan: TSH will be checked and patient will continue present dosing of Synthroid with adjustment as an outpatient. Qualifiers: Hypothyroidism type: acquired Qualified Code(s): E03.9 - Hypothyroidism, unspecified History of Present Illness History of Present Illness Chief Complaint: Abdominal and flank pain Narrative: This is a 38-year-old female patient who receives most of her care at [facility] through the GI system with recent stenting of a pancreatic pseudocyst about 2 weeks prior to this presentation. After the procedure she did have some discomfort which improved with oral antibiotics but then aggressively has been worsening prompting patient to be reevaluated today. CT imaging in the ED did show worsening pancreatic pseudocyst status with abscessing and inflammation around the stent with concern for blockage. She has had no fever or chills but has had some slight nausea with worsening abdominal pain and flank pain. She denies any weight gain. She has not had alcohol recently but is on methadone for opioid addiction. She also takes medication for high blood pressure with when she is ill as with this presentation, she usually has low blood pressures. She was tachycardic mildly upon presentation to the ED but this resolved quickly with IV fluid resuscitation. She also has worsening of CKD with a creatinine double her baseline going from 1.3-2.8 but this has improved after lactated Ringer's with the last measurement 1.7 prior to being brought up to the ICU. Her MAP was above 65. She was not short of breath though she has some mild coughing over the last 2 weeks. The ED provider did speak to [facility] with the hospitalist accepted the patient in transfer pending bed availability which may occur after [address] Gurjit Caro was excepting physician. Dr Eagle through GI will be seeing the patient with probable interventional radiology to drain her pancreatic abscess and reevaluation after stenting will take place. She does receive all of her GI care at [facility]. She is a full code. Review of Systems Narrative: 13 point review of systems otherwise unrevealing or stable. PFSH All Active Problems (Updated 06/17/23 @ 01:10 by Duglas Byrnes) Abscess of pancreas (Acute) Sepsis (Acute) Acute renal failure (ARF) (Acute) Opiate addiction (Chronic) Pseudocyst of pancreas (Chronic) Alcoholism (Chronic) GERD (gastroesophageal reflux disease) (Chronic) Fatty liver disease, nonalcoholic (Chronic) Hypertension (Chronic) CKD (chronic kidney disease) stage 3, GFR 30-59 ml/min (Chronic) Opioid use disorder (Chronic) Methadone through [facility] Hypothyroidism (Chronic) Generalized anxiety disorder (Chronic) Medical History Major depressive disorder Temporomandibular joint disorder Surgical History History of section (05/28/14) Family History Mother Alcohol abuse Depression Father Alcohol abuse Substance abuse Sister Depression Sister Substance abuse Depression Son No problems noted. Son No problems noted. Maternal Grandfather Colon cancer Skin cancer (melanoma) Type 2 diabetes mellitus Heart disease Maternal Grandmother Heart disease SLE (systemic lupus erythematosus) Osteoporosis Paternal Grandfather No problems noted. Paternal Grandmother No problems noted. 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 Pets and animals: Yes Pets and animals: cat(s), dog(s), hamster(s) and farm animals Sexually active: Yes Do you think of yourself as: straight/heterosexual Current gender identity: female What is your relationship status?: living with partner How often do you talk on the phone with friends or family?: three or more times per week How often do you get together with friends or relatives?: once per week How often do you attend evangelical or christian services?: 1-3 times per year Do you belong to any clubs or organized social groups?: no Panel score (0-1 are the most socially isolated patients): 2 What type of physical activity do you participate in: none Duration: 15-30 minutes/day Frequency: 5-6 times per week Eloisa/Taoism: Amish Special eloisa needs: No Seatbelt use: always Do you feel safe in your relationship?: Yes Female Reproductive History Menstrual control method: natural family planning History History 1 Para Hx # Term Pregnancies Multiple births 1 Hx # Pregnancies Ectopic pregnancies AB induced Hx Number of Living Children 2 AB spontaneous Meds Allergies and Home Medications Allergies Allergy/AdvReac Type Severity Reaction Status Date / Time venom-honey bee Allergy Severe ANAPHYLAXSI Verified 06/16/23 21:30 [bee venom (honey bee)] S Home Medications Medication Instructions Recorded Confirmed Type epinephrine 0.3 mg/0.3 mL 0.3 mg (0.3 mL) IM ONCE #1 ea 07/30/20 06/16/23 Rx injection, auto-injector methadone 10 mg/5 mL oral solution 130 mg PO DAILY 09/15/22 06/16/23 History losartan 100 mg tablet 100 mg PO DAILY #90 tabs 12/10/22 06/16/23 Rx levothyroxine 125 mcg capsule 125 mcg PO DAILY #90 tab-caps 03/14/23 06/16/23 Rx amlodipine 5 mg tablet 5 mg PO HS #90 tabs 05/08/23 06/16/23 Rx Exam Narrative Exam Narrative: General: Patient appears appropriate for age, moderately obese and lying in bed appearing uncomfortable holding her abdomen but no acute distress. She is alert and oriented x3. HEENT: Normocephalic, eyes with pupils equal and reactive to light symmetrically, extraocular movement intact and sclera anicteric. Oropharynx with dry mucosa and fair dentition. Neck: Supple without JVD. Back: Stooped posture without CVA tenderness. Patient is uncomfortable over her flanks. Lungs: Clear to auscultation percussion with no focalizing rales or rhonchi. Heart: Regular rate and rhythm with no murmurs or gallop appreciated. Breast: Exam deferred. Abdomen: Slightly protuberant with no rigid guarding but uncomfortable to deep palpation especially over the upper abdomen and both anterior flanks with no rebound. Bowel sounds are positive. Unable to palpate liver and spleen because of discomfort. Genitalia/rectal: Exam deferred. Extremities: No clubbing, cyanosis or pitting edema the patient does have moderate obese lower extremities versus nonpitting edema over ankles. Good cap refill. Skin: Pale, warm and dry. Neuro: Cranial nerves II through XII gross intact. No focal motor deficits. No tremor. Psych: Flattened affect and depressed mood. No normal thought processes. Remote and recent memory grossly intact. Results Imaging Imaging Studies: EXAM: CT ABDOMEN PELVIS W CLINICAL HISTORY: abdominal pain, recent pancreatic stent placement,. TECHNIQUE: Imaging Protocol: Axial computed tomography images with coronal and sagittal reformatted images were created and reviewed CONTRAST MATERIAL: Intravenous: Omnipaque 350 Contrast volume:100 ml Oral: / no COMPARISON: CT CT ABDOMEN PELVIS W from 05/05/[address] ABDOMEN PELVIS W from 05/17/2023 FINDINGS: ABDOMEN and PELVIS: Lung Bases: Normal where visualized. Liver: Normal density. No measurable mass. Gallbladder and biliary tract: No radiodense calculus or dilation. Pancreas: A somewhat atrophic. Decreased size of pseudocyst seen near the tail of the pancreas. Spleen: Normal. Kidneys: Normal size, contour and axis. No radiodense stones. There is now mild enlargement of the right kidney and delayed nephrogram. There is mild hydronephrosis. This is likely secondary to compression by the large pseudocyst and adjacent inflammation. No suspicious masses seen. Adrenal glands: No masses seen. Vasculature: Abdominal aorta non-dilated. Soft tissues: Unremarkable. Bladder: No gross wall thickening. No calculi.No focal mass. Bowel: No obstruction. No bowel wall thickening. Appendix normal. Peritoneal cavity: No ascites. A stent has now been placed at the upper aspect of the large right-sided retroperitoneal pseudocyst. The appears to communicate with the duodenum. There is now marked surrounding inflammation, wall thickening of the pseudocyst collection as well as multiple air bubbles. There is marked thickening of the adjacent duodenal sweep. It does not appear to have changed in size. It extends of from the level of the head of the pancreas inferiorly anterior to the psoas muscle at the right lower quadrant. Bones: Unremarkable for age. Reproductive organs: Within normal limits. Lymph nodes: Unremarkable. IMPRESSION:: The previously noted large right sided pseudocyst now has the appearance of an abscess with marked wall thickening and air bubbles. A stent is now noted which appears to communicate with the duodenum. There is marked inflammation of the duodenal sweep as well as mild secondary hydronephrosis of the right kidney. Labs 06/16/23 17:35 06/17/23 00:45 Labs: Laboratory Results - last 24 hr 06/16/23 06/16/23 06/16/23 17:35 19:35 21:23 WBC 15.50 H RBC 3.60 L Hgb 9.9 L Hct 31.0 L MCV 86 MCH 27.5 MCHC 31.9 L RDW 15.5 H Plt Count 556 H MPV 10.0 Immature Gran % 1.5 Neutrophils % 79.4 Lymphocytes % 9.1 Monocytes % 9.5 Eosinophils % 0.1 Basophils % 0.4 Nucleated RBC % 0.0 Absolute Neutrophils 12.31 H Absolute Lymphocytes 1.41 Absolute Monocytes 1.47 H Absolute Eosinophils 0.02 Absolute Basophils 0.06 VBG Lactate 0.5 L Sodium 132 L Potassium 4.0 Chloride 95 L Carbon Dioxide 25.6 Anion Gap 11.4 H BUN 28 H Creatinine 2.8 H Est GFR (CKD-EPI 2020) 21.36 Glucose 90 Calcium 9.7 Magnesium 2.5 H Total Bilirubin 1.1 H AST 22 ALT 26 Alkaline Phosphatase 71 Total Protein 8.4 H Albumin 3.0 L Amylase 20 L Lipase 17 Urine Color Yellow Urine Clarity Clear Urine pH 5.5 Ur Specific [place] <= 1.005 Urine Protein Trace H Urine Ketones Negative Urine Blood Negative Urine Nitrite Negative Urine Bilirubin Negative Urine Urobilinogen 0.2 Ur Leukocyte Esterase Negative Urine RBC Negative Urine WBC 0-2 Ur Epithelial Cells Rare Urine Crystals Negative Urine Bacteria Rare Urine Casts Negative Urine Mucus Negative Ur Culture Indicated? No Urine Glucose Negative Last Vital Signs Temp 36.1 C L 06/16/23 17:21 Pulse 65 06/17/23 00:31 Resp 24 06/17/23 00:31 BP 101/52 L 06/17/23 00:31 Pulse Ox 94 06/17/23 00:31 Time Spent Time spent with Patient: >75 minutes Time was spent: preparing to see the patient(eg.review tests), obtaining and/or reviewing separately otained hiistory, ordering medications,tests, procedures, referring, communicating with other health health care sanitary technician, indepentently interpreting results and care coordination
[2023-06-17 00:59] LABS: Anion Gap 8.3 mmol/L (3-11); BUN 24 mg/dL (7-18); CO2 25.7 mmol/L (21.0-32.0); CREATININE 1.7 mg/dL (0.55-1.02); Chloride 101 mmol/L (98-107); Estimated GFR 38.88 (mL/min/1.73m2); Glucose 90 mg/dL (74-106); Potassium 4.4 mmol/L (3.5-5.1); Sodium 135 mmol/L (136-145)
[2023-06-17 01:27] LABS: ETHANOL BLOOD < 3.0 mg/dL (<10)
[2023-06-17 02:16] LABS: Source Nasal/Nares
[2023-06-17 02:44] LABS: COVID-19 PCR Negative (Negative)
[2023-06-17] MEDS: PIPERACILLIN/TAZO 3.375 GM in Normal Saline 50 ML IVPB (04:07)
[2023-06-17] MEDS: Lactated Ringers 1,000 ML 150 ML IV (04:47)
[2023-06-17 05:17] LABS: HCT 25.5 % (36.0-46.0); HGB 8.3 g/dL (11.2-15.7); MCH 28.2 pg (27.0-33.0); MCHC 32.5 % (32.0-36.0); MCV 87 fL (80-95); MPV 9.8 fL (8.0-11.0); Platelet Count 440 10^3/uL (130-400); RBC 2.94 10^6/uL (3.93-5.22); RDW 15.5 % (11.7-14.6); RDW-SD 49.6 fL; WBC 12.49 10^3/uL (4.4-10.8)
[2023-06-17 05:39] LABS: ALT 23 U/L (14-59); AST 21 U/L (15-37); Albumin 2.1 g/dL (3.4-5.0); Alkaline Phosphatase 58 U/L (46-116); Anion Gap 8.7 mmol/L (3-11); BUN 21 mg/dL (7-18); Bilirubin, Total 1.1 mg/dL (0.2-1.0); CO2 24.3 mmol/L (21.0-32.0); CREATININE 1.4 mg/dL (0.55-1.02); Calcium 8.8 mg/dL (8.5-10.1); Chloride 102 mmol/L (98-107); Estimated GFR 49.08 (mL/min/1.73m2); Glucose 90 mg/dL (74-106); Potassium 4.1 mmol/L (3.5-5.1); Sodium 135 mmol/L (136-145); Total Protein 6.4 g/dL (6.4-8.2)
[2023-06-17 05:40] LABS: INR 1.2 (0.9-1.1); Prothrombin Time 11.9 sec (9.1-11.1)
[2023-06-17 05:52] LABS: TSH 14.05 uIU/mL (0.36-3.74)
[2023-06-17] MEDS: Levothyroxine 125 MCG TAB PO (06:56)
--- NOTE | 2023-06-17 07:03 | W.PM.DS.N ---
Date of service: 06/17/23 Time of Service: 07:17 DS: Diagnosis Discharge Diagnosis (1) Abscess of pancreas: Start date: 06/17/23 Status: Acute Asessment and Plan: This is a 38-year-old lady with complication of pseudocyst with stent placement 2 weeks prior to admission. Patient is on IV Zosyn and fluid support with low blood pressure but no true sepsis syndrome. (2) Pseudocyst of pancreas: Status: Chronic Asessment and Plan: Follow-up with GI at [facility] chronically. Patient is off alcohol. (3) Alcoholism: Status: Chronic Asessment and Plan: Patient reports no alcohol intake for months. (4) Opiate addiction: Status: Chronic Asessment and Plan: On chronic methadone with this to be followed up. Dose given on home medication reconciliation was 130 mg daily. (5) CKD (chronic kidney disease) stage 3, GFR 30-59 ml/min: Status: Chronic Asessment and Plan: Acute exacerbation with pancreatic abscess normalizing to baseline with IV fluids. (6) Hypertension: Status: Chronic Asessment and Plan: Usually on medical therapy as an outpatient but hypotensive presently with medicine being held. (7) Hypothyroidism: Status: Chronic Asessment and Plan: Follow-up TSH continue supplementation. Discharge Plan Disposition Specific Acute Inpt Facility: [facility] Condition: Serious Condition: Stable Discharge Details Reason For Visit: Pancreatic abscess, Hypotension, ROYAL Admit Date/Time: 06/17/23 01:01 Admit Provider: Duglas Byrnes Attending Provider: Duglas Byrnes Primary Care Provider: Cherise Chambers Hospital Course Hospital Course: See H&P and ED report. Patient was accepted to [facility] hospitalist service for GI consultation as per H&P. Hospital course was short and stable with follow-up lab and evaluation at [facility] plan early in the morning of transfer at change of shift. She is a full code. Home Meds and New Rx's Prescriptions: No Action methadone 10 mg/5 mL solution 130 mg PO DAILY losartan 100 mg tablet 100 mg PO DAILY Qty: 90 3RF levothyroxine 125 mcg capsule 125 mcg PO DAILY Qty: 90 0RF epinephrine 0.3 mg/0.3 mL auto-injector 0.3 mg IM ONCE Qty: 1 2RF Rx Instructions: as a single dose; may repeat once amlodipine 5 mg Tablet 5 mg PO HS Qty: 90 1RF Discharge Data Discharge Comment: Transfer via ambulance to [facility] hospitalist Service Discharge Physician: Duglas Byrnes DS: Summary Time Spent with Patient providing and/or coordinating discharge services: Greater than 30 minutes Status at Discharge Functional status at discharge: bed bound Overall status at discharge: patient is not back to baseline Mental Status: mental status grossly normal Speech and Movement: speech and movement normal Mood: congruent mood Affect: normal affect Exam Psych Mental Status: mental status grossly normal Speech and Movement: speech and movement normal Mood: congruent mood Affect: normal affect DS: Data Vitals/I&O Vitals and I&O: Vital Signs Temperature 36.1 C L 06/17/23 03:05 Temperature Source Tympanic 06/17/23 02:47 Pulse 65 06/17/23 05:46 Pulse 69 06/17/23 05:50 Respiratory Rate 21 06/17/23 05:50 Respiratory Effort Normal 06/17/23 02:47 Respiratory Depth Normal 06/17/23 02:47 Respiratory Pattern Normal 06/17/23 02:47 Blood Pressure 100/60 06/17/23 05:46 Blood Pressure Mean 72 06/17/23 05:46 Blood Pressure Position Supine 06/17/23 02:47 Pulse Oximetry 94 06/17/23 05:50 Oxygen Delivery Method Room Air 06/17/23 02:47 Oxygen Flow Rate 0 06/17/23 02:47 Pain Level 5 06/17/23 05:11 Comment pt states constant flank/kidney pain 06/16/23 17:38 Intake & Output 06/16/23 06/16/23 06/17/23 11:59 23:59 11:59 Intake Total 1060 / 1060 1050 / 1050 Output Total 600 / 600 Balance 1060 / 1060 450 / 450 Weight 90.718 kg 87.1 kg Intake: IV 1060 / 1060 1050 / 1050 Output: Urine 600 / 600 Other: Urine Color Yellow Urine Odor None Voiding Methods Toilet Data Completed and Pending Labs on day of discharge: Labs from last 24 hours 06/17/23 06/17/23 06/17/23 05:05 02:10 00:45 WBC 12.49 H RBC 2.94 L Hgb 8.3 L Hct 25.5 L MCV 87 MCH 28.2 MCHC 32.5 RDW 15.5 H Plt Count 440 H MPV 9.8 Immature Gran % Neutrophils % Lymphocytes % Monocytes % Eosinophils % Basophils % Nucleated RBC % Absolute Neutrophils Absolute Lymphocytes Absolute Monocytes Absolute Eosinophils Absolute Basophils PT 11.9 H INR 1.2 H VBG Lactate Sodium 135 L 135 L Potassium 4.1 4.4 Chloride 102 101 Carbon Dioxide 24.3 25.7 Anion Gap 8.7 8.3 BUN 21 H 24 H Creatinine 1.4 H 1.7 H D Est GFR (CKD-EPI 2020) 49.08 38.88 Glucose 90 90 Calcium 8.8 9.0 Magnesium Total Bilirubin 1.1 H AST 21 ALT 23 Alkaline Phosphatase 58 Total Protein 6.4 Albumin 2.1 L Amylase Lipase TSH 14.05 H Urine Color Urine Clarity Urine pH Ur Specific [place] Urine Protein Urine Ketones Urine Blood Urine Nitrite Urine Bilirubin Urine Urobilinogen Ur Leukocyte Esterase Urine RBC Urine WBC Ur Epithelial Cells Urine Crystals Urine Bacteria Urine Casts Urine Mucus Ur Culture Indicated? Urine Glucose Ethyl Alcohol < 3.0 COVID-19 Source Nasal/Nares SARS-CoV-2 (PCR) Negative 06/16/23 06/16/23 06/16/23 21:23 19:35 17:35 WBC 15.50 H RBC 3.60 L Hgb 9.9 L Hct 31.0 L MCV 86 MCH 27.5 MCHC 31.9 L RDW 15.5 H Plt Count 556 H MPV 10.0 Immature Gran % 1.5 Neutrophils % 79.4 Lymphocytes % 9.1 Monocytes % 9.5 Eosinophils % 0.1 Basophils % 0.4 Nucleated RBC % 0.0 Absolute Neutrophils 12.31 H Absolute Lymphocytes 1.41 Absolute Monocytes 1.47 H Absolute Eosinophils 0.02 Absolute Basophils 0.06 PT INR VBG Lactate 0.5 L Sodium 132 L Potassium 4.0 Chloride 95 L Carbon Dioxide 25.6 Anion Gap 11.4 H BUN 28 H Creatinine 2.8 H Est GFR (CKD-EPI 2020) 21.36 Glucose 90 Calcium 9.7 Magnesium 2.5 H Total Bilirubin 1.1 H AST 22 ALT 26 Alkaline Phosphatase 71 Total Protein 8.4 H Albumin 3.0 L Amylase 20 L Lipase 17 TSH Urine Color Yellow Urine Clarity Clear Urine pH 5.5 Ur Specific [place] <= 1.005 Urine Protein Trace H Urine Ketones Negative Urine Blood Negative Urine Nitrite Negative Urine Bilirubin Negative Urine Urobilinogen 0.2 Ur Leukocyte Esterase Negative Urine RBC Negative Urine WBC 0-2 Ur Epithelial Cells Rare Urine Crystals Negative Urine Bacteria Rare Urine Casts Negative Urine Mucus Negative Ur Culture Indicated? No Urine Glucose Negative Ethyl Alcohol COVID-19 Source SARS-CoV-2 (PCR) 06/16/23 20:16 Blood Blood Culture - Pending 06/16/23 19:58 Blood Blood Culture - Pending Preliminary micro results at discharge 06/16/23 20:16 Blood Culture - Pending Blood 06/16/23 19:58 Blood Culture - Pending Blood PFSH All Active Problems Abscess of pancreas (Acute) Sepsis (Acute) Acute renal failure (ARF) (Acute) Opiate addiction (Chronic) Pseudocyst of pancreas (Chronic) Alcoholism (Chronic) GERD (gastroesophageal reflux disease) (Chronic) Fatty liver disease, nonalcoholic (Chronic) Hypertension (Chronic) CKD (chronic kidney disease) stage 3, GFR 30-59 ml/min (Chronic) Opioid use disorder (Chronic) Methadone through [facility] Hypothyroidism (Chronic) Generalized anxiety disorder (Chronic) Medical History Major depressive disorder Temporomandibular joint disorder Surgical History History of section (05/28/14) Family History Mother Alcohol abuse Depression Father Alcohol abuse Substance abuse Sister Depression Sister Substance abuse Depression Son No problems noted. Son No problems noted. Maternal Grandfather Colon cancer Skin cancer (melanoma) Type 2 diabetes mellitus Heart disease Maternal Grandmother Heart disease SLE (systemic lupus erythematosus) Osteoporosis Paternal Grandfather No problems noted. Paternal Grandmother No problems noted. 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 Pets and animals: Yes Pets and animals: cat(s), dog(s), hamster(s) and farm animals Sexually active: Yes Do you think of yourself as: straight/heterosexual Current gender identity: female What is your relationship status?: living with partner How often do you talk on the phone with friends or family?: three or more times per week How often do you get together with friends or relatives?: once per week How often do you attend lutheran or taoism services?: 1-3 times per year Do you belong to any clubs or organized social groups?: no Panel score (0-1 are the most socially isolated patients): 2 What type of physical activity do you participate in: none Duration: 15-30 minutes/day Frequency: 5-6 times per week Eloisa/Synagogue: Yazidism Special eloisa needs: No Seatbelt use: always Do you feel safe in your relationship?: Yes Female Reproductive History Menstrual control method: natural family planning History History 1 Para Hx # Term Pregnancies Multiple births 1 Hx # Pregnancies Ectopic pregnancies AB induced Hx Number of Living Children 2 AB spontaneous Time Spent with Patient Time Spent with Patient: <45 minutes Time was spent: obtaining and/or reviewing separately otained hiistory, ordering medications,tests, procedures, referring, communicating with other health toddler caregiver, indepentently interpreting results and care coordination
--- NOTE | 2023-06-17 07:41 | NUR.NOTE ---
0710-report given to Dina Garcia of [facility] at [facility]. Jhoana has just left with the pt and the packet for [facility]
== END 2023-06-17 07:05 | disposition short-term general hospital (02) | DRG 439 ==
LOC: ER 06-17 02:48 → ICU 06-17 02:51
PROVIDERS: Physician Assistant; Admitting Provider Family Medicine; Emergency Provider Emergency Medicine; PCP Nurse Practitioner Family; Visit Provider Family Medicine
DX: K85.80 Other acute pancreatitis without necrosis or infection (principal); F11.20 Opioid dependence, uncomplicated; K86.3 Pseudocyst of pancreas; N17.9 Acute kidney failure, unspecified; F10.20 Alcohol dependence, uncomplicated; I12.9 Hypertensive chronic kidney disease with stage 1 through stage 4 chronic kidney disease, or unspecified chronic kidney disease; N18.31 Chronic kidney disease, stage 3a; E03.9 Hypothyroidism, unspecified; K76.0 Fatty (change of) liver, not elsewhere classified; F41.1 Generalized anxiety disorder
CPT/HCPCS: 00123; 36415; 80048; 80053; 83690; 85027; 87040; 87635; 96361; 96365; 96375; 99285; 74177; 80320; 81003; 81015; 82150; 83605; 83735; 84443; 85025; 85610; 99223; J2543; J2765; J3490

== ENCOUNTER 2023-08-07 18:44 | Emergency (ER) | payer MEDICAID, SELFPAY ==
[2023-08-07] VITALS (21 sets, daily range): BP systolic 156–184; BP diastolic 98–119; PULSE 78–102; RESP 0–19; TEMP 36.6; O2SAT 92–100
--- NOTE | 2023-08-07 20:00 | DI.CT_ITS ---
Exam(s) CT ABDOMEN PELVIS W EXAM: CT ABDOMEN PELVIS W CLINICAL HISTORY: ABD pain, complex history. TECHNIQUE: Imaging Protocol: Axial computed tomography images with coronal and sagittal reformatted images were created and reviewed CONTRAST MATERIAL: Intravenous: Omnipaque 350 Contrast volume:100 ml Oral: no COMPARISON: CT CT ABDOMEN PELVIS W from 06/16/2023 FINDINGS: ABDOMEN and PELVIS: Lung Bases: No acute findings. Liver: Mild fatty infiltration. No measurable mass. Gallbladder and biliary tract: No radiodense calculus. Stable mild biliary dilation. Pancreas: Somewhat atrophic. Mild stranding around the head of the pancreas may be residual. Small residual cystic collection medial to the head of the pancreas measuring 12 millimeters. Stable appea manju of collection seen beneath the tail of the pancreas, extending along eroded is fascia. No air bubbles. No evidence of mass. Spleen: Normal. Kidneys: Normal size, contour and axis. No radiodense stones. No obstructive uropathy. Improvement in previously noted mild right hydronephrosis. No suspicious masses seen. Adrenal glands: No masses seen. Vasculature: Abdominal aorta non-dilated. Soft tissues: Unremarkable. Bladder: No gross wall thickening. No calculi.No focal mass. Bowel: No obstruction. Double pigtail stent now seen the proximal pigtail in the proximal duodenum a nd distal pigtail within previously noted abscess collection. The abscess has been completely draine d. Mild duodenal wall thickening, improved from prior. Appendix normal. Peritoneal cavity: No ascites. No focal collection or mesenteric inflammatory response. Bones: Unremarkable for age. Reproductive organs: Within normal limits. Lymph nodes: Unremarkable. IMPRESSION:: Previously noted large abscess is now completely drained. A double pigtail catheter re burt in place from the duodenum into the previously noted collection. Stable collection beneath the tail of the pancreas. Small cystic area medial to head of pancreas which appears significantly smal ler than on the previous exam. No definite active inflammation. Correlation with the laboratory adelfo ues recommended. RADIATION DOSE DELIVERED: Total DLP DATA REPOSITORY: All CT scans at this facility are submitted to the National Radiology Data Registry (NRDR) Dose Index Registry (DIR) with the [employer] (ACR). RADIATION OPTIMIZATION: All CT scans at this facility use at least one of these dose optimization te chniques: automated exposure control; mA and/or kV adjustment per patient size (includes targeted exa ms where dose is matched to clinical indication); or iterative reconstruction.
--- NOTE | 2023-08-07 20:09 | W.ED.GENAD ---
Discharge Plan Disposition Condition: Stable Discharge Details Chief Complaint: Abd Prob Clinical Impression: Abdominal pain of unknown cause Primary Care Provider: Cherise Chambers ED Provider: Avery Smith Home Meds and New Rx's Prescriptions: No Action methadone 10 mg/5 mL solution 130 mg PO DAILY levothyroxine 137 mcg capsule 137 mcg PO DAILY Qty: 90 3RF epinephrine 0.3 mg/0.3 mL auto-injector 0.3 mg IM ONCE Qty: 1 2RF Rx Instructions: as a single dose; may repeat once Medical Decision Making This dictation utilizes [id number] dictation software and may contain unedited grammatical errors. 38 y/o F presents to ED today with a chief complaint of diffuse abdominal pain worsening over the last few hours, has upcoming surgery to clean out pancreatic stents from pancreatic cyst, followed by GI specialist at [facility]. Endorses nausea but denies vomiting, denies fever, endorses normal bowel habits, denies chest pain or shortness of breath. Patients' medical history: Pancreatic abscess, pseudocyst of pancreas, history of alcoholism, fatty liver disease, nonalcoholic, hypertension, CKD stage III, opioid use disorder. Family and social history: Polysubstance abuse, lives independently, no sick contacts. Pertinent exam findings / vital signs include diffuse upper abdominal tenderness with peritoneal signs, nontoxic vitals but does have mild tachycardia, concern for sepsis or peritonitis. Differential / pathologies of concern include SBP, peritonitis, pancreatitis, biliary cholangitis, pleural effusion, liver failure, hepatorenal syndrome, infected kidney stones. Diagnostic studies of: -CBC, CMP, Lipase, Lactate, Procalcitonin, Blood Cx's, UA, Trop I, BNP, CT ABD/Pelvis w Contrast, CRP/ESR. -CBC no leukocytosis -Lactate 1.6 -ESR mildly elevated -mild ROYAL on CMP -Mg++ WNL -CRP mild elev. -Procalcitonin negative -Lipase WNL -rest are pending at sign-out Interventions of: -IV fluids, IV APAP/Toradol/Dilaudid, PO Zofran > Antibiotic decision based on CT findings. ED Course/Assessment/Plan: 38-year-old female with history of alcohol use disorder and opiate use disorder with complex history of pancreatic abscess and pancreatic pseudocyst with stents in her abdomen that have gotten clogged in the past is presenting with worsening upper abdominal pain feels that her pancreatic pathology, she has a surgery scheduled for Tuesday at [facility], she has peritoneal findings on her abdominal exam and I am concerned for peritonitis from possible infected fluid draining from these pancreatic stents, she does not have overt ascites, she does not have a fever and she had mild tachycardia and mild hypertension but is overall nontoxic, regardless blood cultures were drawn. Her labs are re-assuring for no signs of sepsis or cholangiitis, lipase WNL- with normal CT can likely follow-up with [facility] planned procedure tuesday. Findings not consistent with sepsis, lactate is only mildly elevated. Disposition of Abdominal Pain of Unknown Cause. Patient verbalized understanding of the plan and return to ED criteria and engaged in shared decision making. Medical Records Medical records reviewed: Yes I reviewed the patient's medical records. Imaging Data Radiologic Study: Imaging: CT Scan My impression: pending at sign-out Lab Data Lab results reviewed: Yes I reviewed the patient's lab results. Labs: 08/07/23 20:40 Blood Blood Culture - Pending 08/07/23 20:37 Blood Blood Culture - Pending Laboratory Tests Range/Units 08/07/23 08/07/23 08/07/23 19:27 20:35 20:40 WBC (4.4-10.8) 10^3/uL 6.49 RBC (3.93-5.22) 10^6/uL 4.34 Hgb (11.2-15.7) g/dL 12.5 Hct (36.0-46.0) % 37.5 MCV (80-95) fL 86 MCH (27.0-33.0) pg 28.8 MCHC (32.0-36.0) % 33.3 RDW (11.7-14.6) % 14.2 Plt Count (130-400) 10^3/uL 358 MPV (8.0-11.0) fL 10.2 Immature Gran % 0.3 Neutrophils % 73.6 Lymphocytes % 17.6 Monocytes % 6.2 Eosinophils % 1.7 Basophils % 0.6 Nucleated RBC % (0.0-0.3) % 0.0 Absolute Neutrophils (1.2-6.7) 10^3/uL 4.78 Absolute Lymphocytes (1.2-3.4) 10^3/uL 1.14 L Absolute Monocytes (0.1-0.8) 10^3/uL 0.40 Absolute Eosinophils (0.0-0.7) 10^3/uL 0.11 Absolute Basophils (0.0-0.2) 10^3/uL 0.04 ESR (0-20) mm/hr 29 H VBG Lactate (0.6-1.4) mmol/L 1.6 H Sodium (136-145) mmol/L 139 Potassium (3.5-5.1) mmol/L 3.8 Chloride (98-107) mmol/L 101 Carbon Dioxide (21.0-32.0) mmol/L 28.4 Anion Gap (3-11) mmol/L 9.6 BUN (7-18) mg/dL 9 Creatinine (0.55-1.02) mg/dL 1.2 H Est GFR (CKD-EPI 2020) (mL/min/1.73m2) 59.05 Glucose (74-106) mg/dL 135 H Calcium (8.5-10.1) mg/dL 9.5 Magnesium (1.8-2.4) mg/dL 2.2 Total Bilirubin (0.2-1.0) mg/dL 0.6 Conjugated Bilirubin (0.0-0.2) mg/dL 0.1 AST (15-37) U/L 32 ALT (14-59) U/L 46 Alkaline Phosphatase (46-116) U/L 104 Troponin I (<or=60) ng/L < 50 C-Reactive Protein (0.0-0.3) mg/dL 0.94 H NT-Pro-B Natriuret Pep (<300) pg/mL 58 Total Protein (6.4-8.2) g/dL 8.1 Albumin (3.4-5.0) g/dL 3.9 Lipase (16-77) U/L 24 Procalcitonin ng/mL < 0.1 Serum HCG, Qual Cancelled COVID-19 Source Cancelled SARS-CoV-2 (PCR) Cancelled Influenza Type A (PCR) Cancelled Influenza Type B (PCR) Cancelled RSV (PCR) Cancelled Range/Units 08/07/23 20:43 WBC (4.4-10.8) 10^3/uL RBC (3.93-5.22) 10^6/uL Hgb (11.2-15.7) g/dL Hct (36.0-46.0) % MCV (80-95) fL MCH (27.0-33.0) pg MCHC (32.0-36.0) % RDW (11.7-14.6) % Plt Count (130-400) 10^3/uL MPV (8.0-11.0) fL Immature Gran % Neutrophils % Lymphocytes % Monocytes % Eosinophils % Basophils % Nucleated RBC % (0.0-0.3) % Absolute Neutrophils (1.2-6.7) 10^3/uL Absolute Lymphocytes (1.2-3.4) 10^3/uL Absolute Monocytes (0.1-0.8) 10^3/uL Absolute Eosinophils (0.0-0.7) 10^3/uL Absolute Basophils (0.0-0.2) 10^3/uL ESR (0-20) mm/hr VBG Lactate (0.6-1.4) mmol/L Sodium (136-145) mmol/L Potassium (3.5-5.1) mmol/L Chloride (98-107) mmol/L Carbon Dioxide (21.0-32.0) mmol/L Anion Gap (3-11) mmol/L BUN (7-18) mg/dL Creatinine (0.55-1.02) mg/dL Est GFR (CKD-EPI 2020) (mL/min/1.73m2) Glucose (74-106) mg/dL Calcium (8.5-10.1) mg/dL Magnesium (1.8-2.4) mg/dL Total Bilirubin (0.2-1.0) mg/dL Conjugated Bilirubin (0.0-0.2) mg/dL AST (15-37) U/L ALT (14-59) U/L Alkaline Phosphatase (46-116) U/L Troponin I (<or=60) ng/L C-Reactive Protein (0.0-0.3) mg/dL NT-Pro-B Natriuret Pep (<300) pg/mL Total Protein (6.4-8.2) g/dL Albumin (3.4-5.0) g/dL Lipase (16-77) U/L Procalcitonin ng/mL Serum HCG, Qual COVID-19 Source Nasal/Nares SARS-CoV-2 (PCR) Influenza Type A (PCR) Influenza Type B (PCR) RSV (PCR) HPI General Date/Time Provider Initiated Documentation: 08/07/23 19:27. HPI Narrative: 38 year-old female presents to ED today by POV/ambulating with a chief complaint of abdominal pain, diffusely, increasing over the last few hours, has a complicated history seen by GI specialist at [facility] for large cysts on the pancreas with stents in place, has a surgery scheduled for Tuesday. Quality described as generalized upper abdominal pain, states worse with any palpation, denies chest pain or shortness of breath, endorses nausea but denies vomiting, states normal bowel and urinary habits, denies fever. Severity is described as 8/10. Palliating factors include nothing specific attempted. Provoking factors include nothing specific. Events leading up to the incident/Associated Symptoms: Patient surgery upcoming on Tuesday is to clean out her pancreatic stents as they have been clogged before. Patient not anticoagulated. Related Data Home Medications Medication Instructions Recorded Confirmed epinephrine 0.3 mg/0.3 mL 0.3 mg (0.3 mL) IM ONCE #1 ea 07/30/20 08/07/23 injection, auto-injector methadone 10 mg/5 mL oral solution 130 mg PO DAILY 09/15/22 08/07/23 levothyroxine 137 mcg capsule 137 mcg PO DAILY #90 tab-caps 07/04/23 08/07/23 Previous Rx's Medication Instructions Recorded epinephrine 0.3 mg/0.3 mL 0.3 mg (0.3 mL) IM ONCE #1 ea 07/30/20 injection, auto-injector levothyroxine 137 mcg capsule 137 mcg PO DAILY #90 tab-caps 07/04/23 Allergies Allergy/AdvReac Type Severity Reaction Status Date / Time venom-honey bee Allergy Severe ANAPHYLAXSI Verified 07/04/23 14:06 [bee venom (honey bee)] S hymenoptera allergenic AdvReac Severe Anaphylaxis Uncoded 07/04/23 14:06 extract General Stated Complaint: Abd Prob NAKUL: 3 Review of Systems All systems reviewed & are unremarkable except as noted in HPI and below PFSH All Active Problems (Updated 08/07/23 @ 21:32 by HELEN Cano) Abdominal pain of unknown cause (Acute) Abscess of pancreas (Acute) Opiate addiction (Chronic) Pseudocyst of pancreas (Chronic) Alcoholism (Chronic) GERD (gastroesophageal reflux disease) (Chronic) Fatty liver disease, nonalcoholic (Chronic) Hypertension (Chronic) CKD (chronic kidney disease) stage 3, GFR 30-59 ml/min (Chronic) Opioid use disorder (Chronic) Methadone through [facility] Hypothyroidism (Chronic) Generalized anxiety disorder (Chronic) Medical History Major depressive disorder Temporomandibular joint disorder Surgical History History of section (05/28/14) Family History Mother Alcohol abuse Depression Father Alcohol abuse Substance abuse Sister Depression Sister Substance abuse Depression Son No problems noted. Son No problems noted. Maternal Grandfather Colon cancer Skin cancer (melanoma) Type 2 diabetes mellitus Heart disease Maternal Grandmother Heart disease SLE (systemic lupus erythematosus) Osteoporosis Paternal Grandfather No problems noted. Paternal Grandmother No problems noted. 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 Pets and animals: Yes Pets and animals: cat(s), dog(s), hamster(s) and farm animals Sexually active: Yes Do you think of yourself as: straight/heterosexual Current gender identity: female What is your relationship status?: living with partner How often do you talk on the phone with friends or family?: three or more times per week How often do you get together with friends or relatives?: once per week How often do you attend yarsanism or caodaism services?: 1-3 times per year Do you belong to any clubs or organized social groups?: no Panel score (0-1 are the most socially isolated patients): 2 What type of physical activity do you participate in: none Duration: 15-30 minutes/day Frequency: 5-6 times per week Eloisa/Shinto: Buddhist Special eloisa needs: No Seatbelt use: always Do you feel safe in your relationship?: Yes Female Reproductive History Menstrual control method: natural family planning History History 1 Para Hx # Term Pregnancies Multiple births 1 Hx # Pregnancies Ectopic pregnancies AB induced Hx Number of Living Children 2 AB spontaneous Exam Narrative Exam Narrative: GENERAL APPEARANCE: Well-nourished, non-toxic, awake and alert, atraumatic, no acute distress. SKIN: Warm, pink, dry, intact, without rashes/lesions/ulcerations. HEAD: Normocephalic, atraumatic, normal hair distribution for gender/age. EYES: Pupils PERRLA, EOMs intact without nystagmus, normal conjunctiva, no exudates on lids/lashes. ENT: Nares patent, no circumoral cyanosis, no facial swelling NECK: Supple, trachea midline, painless cervical ROM. LUNGS/CHEST: Lungs CTA bilaterally-no rhonchi/rales/wheezes diffusely, non-labored respirations, normal A/P diameter, symmetrical expansion, no chest wall deformity HEART (CV/PV): Regular rate and rhythm without murmur, no peripheral edema, no JVD. ABDOMEN: Soft, non-distended, no guarding, diffuse upper abdominal pain with positive Silva sign, positive Rovsing's with rebound tenderness, bilateral CVA tenderness to percussion. MSK: Normal ROM, no swelling/deformity to bilateral UEs or LEs, moving all extremities without weakness, no cyanosis, spine midline without tenderness, normal curvature. NEURO: Mental Status AAOx4 - alert to person, place, time, events No facial droop, no forehead involvement. Motor: No focal weakness - strength 5/5 in bilateral UEs and LEs, proximal and distal, symmetric. Sensory: sensation intact to light touch globally. Gait normal: patient ambulated without ataxia into ED room. PSYCH: euthymic, cooperative, pleasant, appropriate speech Course Vital Signs Vital signs: Vital Signs Temperature 36.6 C 08/07/23 19:53 Pulse 100 H 08/07/23 19:53 Respiratory Rate 14 08/07/23 19:53 Blood Pressure 170/98 H 08/07/23 19:53 Pulse Oximetry 100 08/07/23 19:53 Temperature 36.6 C 1231/23 19:53 Temperature Source Oral 08/07/23 19:53 Pulse 100 H 08/07/23 19:53 Respiratory Rate 14 08/07/23 19:53 Respiratory Effort Normal 08/07/23 19:56 Blood Pressure 170/98 H 08/07/23 19:53 Pulse Oximetry 100 08/07/23 19:53 Oxygen Delivery Method Room Air 08/07/23 19:53 Oxygen Flow Rate 0 08/07/23 19:53 Pain Level 5 08/07/23 19:56 Lab/Test Results Lab/Test Results: Laboratory Tests Range/Units 08/07/23 19:27 Serum HCG, Qual Cancelled Sign Out Sign Out Data: Sign Out Comment: Patient with complex pancreatic stent history and pseudocyst presents with worsening abdominal pain, labs are reassuring with no elevation of lipase or LFTs, I do not suspect any cholangitis, her lactate is 1.6, procalcitonin is negative I do not suspect sepsis with no leukocytosis on CBC. CT is pending at time of signout and within normal CT scan I think the patient should continue with her regular scheduled follow-up at [facility] on Tuesday with GI specialist, for any findings please consult with [facility] Last updated by Avery Smith PA at 08/07/23 21:39
[2023-08-07 20:54] LABS: Lactate 1.6 mmol/L (0.6-1.4)
[2023-08-07] MEDS: Normal Saline 1,000 ML 1000 ML IV (20:54)
[2023-08-07] MEDS: ACETAMINOPHEN 1,000 MG/100 ML BTL 400 MG IVPB (20:54)
[2023-08-07] MEDS: HYDROmorphone 2 MG/ML SYR 1 MG IVP (20:54)
[2023-08-07] MEDS: Ketorolac 15 MG/ML VIAL IVP (20:55)
[2023-08-07] MEDS: Ondansetron O.D.T. 4 MG TABEF PO (20:55)
[2023-08-07 20:57] LABS: Abs Immature Grans 0.02 10^3/uL (0.0-0.06); Absolute Basophil Count 0.04 10^3/uL (0.0-0.2); Absolute Eosinophil Count 0.11 10^3/uL (0.0-0.7); Absolute Lymphocyte Count 1.14 10^3/uL (1.2-3.4); Absolute Neutrophil Count 4.78 10^3/uL (1.2-6.7); Basophils % 0.6; Eosinophils % 1.7; HCT 37.5 % (36.0-46.0); HGB 12.5 g/dL (11.2-15.7); Immature Grans % 0.3; Lymphocytes % 17.6; MCH 28.8 pg (27.0-33.0); MCHC 33.3 % (32.0-36.0); MCV 86 fL (80-95); MPV 10.2 fL (8.0-11.0); Monocytes % 6.2; Neutrophils % 73.6; Platelet Count 358 10^3/uL (130-400); RBC 4.34 10^6/uL (3.93-5.22); RDW 14.2 % (11.7-14.6); WBC 6.49 10^3/uL (4.4-10.8)
[2023-08-07 21:01] LABS: ESR 29 mm/hr (0-20)
[2023-08-07 21:08] LABS: Source Nasal/Nares
[2023-08-07 21:22] LABS: NT-proBNP 58 pg/mL (<300)
[2023-08-07 21:23] LABS: ALT 46 U/L (14-59); AST 32 U/L (15-37); Albumin 3.9 g/dL (3.4-5.0); Alkaline Phosphatase 104 U/L (46-116); Anion Gap 9.6 mmol/L (3-11); BUN 9 mg/dL (7-18); Bilirubin, Direct 0.1 mg/dL (0.0-0.2); Bilirubin, Total 0.6 mg/dL (0.2-1.0); C-Reactive Protein 0.94 mg/dL (0.0-0.3); CO2 28.4 mmol/L (21.0-32.0); CREATININE 1.2 mg/dL (0.55-1.02); Calcium 9.5 mg/dL (8.5-10.1); Chloride 101 mmol/L (98-107); Estimated GFR 59.05 (mL/min/1.73m2); Glucose 135 mg/dL (74-106); Lipase 24 U/L (16-77); Magnesium 2.2 mg/dL (1.8-2.4); Potassium 3.8 mmol/L (3.5-5.1); Sodium 139 mmol/L (136-145); Total Protein 8.1 g/dL (6.4-8.2); Troponin I < 50 ng/L (<or=60)
[2023-08-07 21:28] LABS: Procalcitonin < 0.1 ng/mL
[2023-08-07] MEDS: Omnipaque 350 MG/ML 100 ML BTL IJ (21:35)
[2023-08-07] MEDS: Normal Saline - Diluent 50 ML VIAL IJ (21:36)
[2023-08-07 21:38] LABS: COVID-19 PCR Negative (Negative)
[2023-08-07 21:43] LABS: Bilirubin Negative (Negative); Blood Trace-intact (Negative); Clarity Clear (Clear); Glucose Negative (Negative); Ketones Negative (Negative); Leukocyte Esterase Negative (Negative); Nitrite Negative (Negative); Specific Gravity 1.015 (1.005-1.025); Urobilinogen 0.2 mg/dL (Up to 0.2); pH 7.5 (5-8)
[2023-08-07 21:49] LABS: Bacteria Negative HPF (Negative); C & S Indicated? No; Casts Negative LPF (Negative); Crystals Negative HPF (Negative); Epithelial Cells Rare HPF (Negative); Mucus Negative (Negative); RBC Negative HPF (0-2); WBC Negative HPF (0-5)
--- NOTE | 2023-08-07 22:24 | DI.VRAD_ITS ---
PROCEDURE INFORMATION: Exam: CT Abdomen And Pelvis With Contrast Exam date and time: 08/07/2023 9:38 PM Age: 38 years old Clinical indication: Abdominal pain; Patient HX: Pancreas stents TECHNIQUE: Imaging protocol: Computed tomography of the abdomen and pelvis with contrast. Total images: 1380 COMPARISON: CT ABDOMEN PELVIS W 06/16/2023 6:25 PM FINDINGS: Tubes, catheters and devices: Double-J pigtail catheter extends from the early 2nd portion of the duodenum to the distal 2nd portion of the duodenum. Lungs: Lung bases are clear with no consolidation. No suspicious pulmonary masses. Pleural spaces: No pleural effusion or pneumothorax. Heart: Heart size is normal. No pericardial effusion. Liver: Liver is normal in size. Mild fatty infiltration of the liver. No hepatic masses. Gallbladder and bile ducts: Gallbladder appears normal. Pancreas: Pancreatic duct measures up to 9.8 mm, mildly prominent. Common bile duct measures up to 5.9 mm, slightly prominent for age, stable. Minimal central intrahepatic biliary ductal dilation is stable. Spleen: Normal. No splenomegaly. Adrenal glands: Normal. No mass. Kidneys and ureters: Fat stranding around the pancreatic head with heterogeneous tissue in the retroperitoneum around the pancreas extending into the right and left anterior pararenal space suggesting pancreatitis. Kidneys appear normal with no pyelonephritis, masses or stones. There are no right or left ureteral stones or hydronephrosis. Stomach and bowel: Wall thickening of the duodenum with surrounding fat stranding suggesting duodenitis, slightly improved. Nonobstructive bowel gas pattern. Appendix: Normal appendix. Intraperitoneal space: Unremarkable. No free air. No significant fluid collection. Retroperitoneal space: Previously noted large right retroperitoneal abscess extending from the abdomen through the pelvis has been completely drained with no residual fluid or gas. Vasculature: Unremarkable. No abdominal aortic aneurysm. Lymph nodes: Unremarkable. No enlarged lymph nodes. Urinary bladder: Unremarkable as visualized. Reproductive: Uterus and ovaries appear normal, each containing follicles. Bones/joints: Unremarkable. No acute fracture. Soft tissues: Unremarkable. IMPRESSION: 1. Fat stranding around the pancreatic head with heterogeneous tissue in the retroperitoneum around the pancreas extending into the right and left anterior pararenal space suggesting pancreatitis. 2. Wall thickening of the duodenum with surrounding fat stranding suggesting duodenitis, slightly improved. 3. Mild fatty infiltration of the liver. 4. Double-J pigtail catheter extends from the early 2nd portion of the duodenum to the distal 2nd portion of the duodenum. 5. Previously noted large right retroperitoneal abscess extending from the abdomen through the pelvis has been completely drained with no residual fluid or gas. Dictated and Authenticated by: Myrna Paiz MD. Ordering:HOANG Varela MD
--- NOTE | 2023-08-07 22:44 | ED.PROG_ITS ---
Date of service: 08/07/23 Time of Service: 22:44 Medical Decision Making Patient was signed out to me by my colleague Olvin Smith. Please refer to his HPI, physical exam, assessment and plan. At time of signout we are awaiting CT scan results. Laboratory workup has returned, no white count bandemia or left shift, renal function stable, lipase normal, procalcitonin normal, urinalysis negative for infection, COVID test negative. CT scan shows some fat stranding around the pancreatic head, with heterogenous tissue in the retroperitoneum around the pancreas extending into the right left anterior pararenal space suggesting mild pancreatitis. Wall thickening of the duodenum with surrounding fat stranding suggesting duodenitis, which is slightly improved compared to before. Double-J pigtail catheter present, and previous fluid collection has been completely drained with no residual fluid or gas. On reassessment the patient is feeling improved. Pain is minimal. Repeat abdominal exam shows minimal epigastric achiness which patient states is chronic. No signs of an acute surgical abdomen. Patient otherwise feels well. I did contact [facility] gastroenterology and discussed the case with Dr. Cook. She does not see any indication for immediate or emergent transfer at this time. Patient does have scheduled outpatient procedure with [facility] scheduled for later this week. And [facility] recommends close follow-up at that time. Patient otherwise stable for discharge. Discussed red flags for which to return. I have extensively reviewed the treatment plan and discharge instructions with the patient. I have addressed all patient concerns at this time. The patient was made aware of what symptoms to monitor for that would warrant a return to the emergency department. Discussed the plan with the patient, they demonstrate verbal understanding and agreement with our assessment and plan at this time. The documentation in this chart was dictated using [employer] dictation software. Please excuse any dictation errors. Of note the patient did have an elevated blood pressure, she demonstrates no signs or symptoms concerning with hypertensive emergency though. I did offer to have her stay and be monitored for an additional 30 minutes to an hour and have a blood pressure recheck, however patient has declined this and is requesting to go home. She has home blood pressure checkers, and she will evaluate her self and due for blood pressure persist to be elevated she will return. FINDINGS: Tubes, catheters and devices: Double-J pigtail catheter extends from the early 2nd portion of the duodenum to the distal 2nd portion of the duodenum. Lungs: Lung bases are clear with no consolidation. No suspicious pulmonary masses. Pleural spaces: No pleural effusion or pneumothorax. Heart: Heart size is normal. No pericardial effusion. Liver: Liver is normal in size. Mild fatty infiltration of the liver. No hepatic masses. Gallbladder and bile ducts: Gallbladder appears normal. Pancreas: Pancreatic duct measures up to 9.8 mm, mildly prominent. Common bile duct measures up to 5.9 mm, slightly prominent for age, stable. Minimal central intrahepatic biliary ductal dilation is stable. Spleen: Normal. No splenomegaly. Adrenal glands: Normal. No mass. Kidneys and ureters: Fat stranding around the pancreatic head with heterogeneous tissue in the retroperitoneum around the pancreas extending into the right and left anterior pararenal space suggesting pancreatitis. Kidneys appear normal with no pyelonephritis, masses or stones. There are no right or left ureteral stones or hydronephrosis. Stomach and bowel: Wall thickening of the duodenum with surrounding fat stranding suggesting duodenitis, slightly improved. Nonobstructive bowel gas pattern. Appendix: Normal appendix. Intraperitoneal space: Unremarkable. No free air. No significant fluid collection. Retroperitoneal space: Previously noted large right retroperitoneal abscess extending from the abdomen through the pelvis has been completely drained with no residual fluid or gas. Vasculature: Unremarkable. No abdominal aortic aneurysm. Lymph nodes: Unremarkable. No enlarged lymph nodes. Urinary bladder: Unremarkable as visualized. Reproductive: Uterus and ovaries appear normal, each containing follicles. Bones/joints: Unremarkable. No acute fracture. Soft tissues: Unremarkable. IMPRESSION: 1. Fat stranding around the pancreatic head with heterogeneous tissue in the retroperitoneum around the pancreas extending into the right and left anterior pararenal space suggesting pancreatitis. 2. Wall thickening of the duodenum with surrounding fat stranding suggesting duodenitis, slightly improved. 3. Mild fatty infiltration of the liver. 4. Double-J pigtail catheter extends from the early 2nd portion of the duodenum to the distal 2nd portion of the duodenum. 5. Previously noted large right retroperitoneal abscess extending from the abdomen through the pelvis has been completely drained with no residual fluid or gas. Thank you for allowing us to participate in the care of your patient. Dictated and Authenticated by: Myrna Paiz MD 08/07/2023 10:24 PM Eastern Time ([place] & [place]) Discharge Plan Disposition Patient Disposition: Home Condition: Stable Discharge Details Clinical Impression: Acute pancreatitis Primary Care Provider: Cherise Chambers ED Provider: Avery Smith Home Meds and New Rx's Prescriptions: No Action methadone 10 mg/5 mL solution 130 mg PO DAILY levothyroxine 137 mcg capsule 137 mcg PO DAILY Qty: 90 3RF epinephrine 0.3 mg/0.3 mL auto-injector 0.3 mg IM ONCE Qty: 1 2RF Rx Instructions: as a single dose; may repeat once Discharge Instructions Instructions: Pancreatitis (ED) Additional Instructions: We have reviewed the case with [facility]. They would like to see you at your scheduled appointment. Please follow-up closely with them. You do have some mild irritation around your pancreas in your duodenum. Please stick with a liquid diet for the next few days. Avoid any fatty greasy or tomato-based products. If you notice any worsening of your symptoms, or any new symptoms such as vomiting, diarrhea, fever, chills, shortness of breath, chest pain, numbness, weakness, or fainting , please return immediately to the emergency department for reevaluation. Please follow up with your primary care provider as soon as possible for reassessment and reevaluation. As always, it was a pleasure participating in your medical care today. Referrals: Cherise Chambers NP [Primary Care Provider] - Discharge Data Discharge Date/Time-TO BE ENTERED AT DEPARTURE: 08/07/23 23:15
== END 2023-08-07 23:15 | disposition home or self-care (01) ==
PROVIDERS: Emergency Provider Physician Assistant; PCP Nurse Practitioner Family
DX: R10.84 Generalized abdominal pain (principal); R11.10 Vomiting, unspecified; K85.90 Acute pancreatitis without necrosis or infection, unspecified; Z96.89 Presence of other specified functional implants; I10 Essential (primary) hypertension
CPT/HCPCS: 00123; 80053; 80076; 81025; 83690; 84145; 85652; 87040; 87635; 87637; 96365; 96375; 99285; 74177; 81003; 81015; 83605; 83735; 83880; 84484; 84703; 85025; 86140; 99283; J0131; J1170; J1885; J3490

== ENCOUNTER 2023-08-25 19:45 | Outpatient (REF) | payer MEDICAID, SELFPAY | END 2023-08-25 19:46 | disposition home or self-care (01) | LOC: LBN 19:45 | PROVIDERS: PCP Nurse Practitioner Family; Visit Provider Physician Assistant | DX: J02.9 Acute pharyngitis, unspecified (principal) | CPT/HCPCS: 87070 ==

== ENCOUNTER → 2023-08-26 09:38 | Outpatient (CLI) | payer MEDICAID, SELFPAY ==
--- NOTE | 2023-08-26 13:22 | DI.RAD_ITS ---
Exam(s) XR CHEST 2V PA LATERAL EXAM: XR CHEST 2V PA LATERAL CLINICAL HISTORY: erythema nodosum L52 TECHNIQUE: 2D digital imaging was performed. COMPARISON: CT CT ABDOMEN PELVIS W from 05/05/2023 FINDINGS: HEART: Mildly enlarged. Aorta: Not dilated. PULMONARY VASCULATURE: Prominent right hilum. Findings could represent vascular prominence versus ad enopathy versus normal overlying vessels. LUNGS: Clear. No nodules are interstitial changes. PLEURAL SPACE: No pleural effusion or pneumothorax. BONE:Unremarkable for age. Soft tissues: Unremarkable. IMPRESSION: Question of mild right hilar enlargement. Chest CT could be considered for further evaluation. DATA REPOSITORY: RADIATION DOSE DELIVERED:
== END ==
PROVIDERS: PCP Nurse Practitioner Family; Visit Provider Physician Assistant
DX: L52 Erythema nodosum (principal)
CPT/HCPCS: 71046

== ENCOUNTER 2023-08-26 13:54 | Outpatient (CLI) | payer MEDICAID, SELFPAY ==
[2023-08-26 13:49] LABS: Abs Immature Grans 0.03 10^3/uL (0.0-0.06); Absolute Basophil Count 0.03 10^3/uL (0.0-0.2); Absolute Eosinophil Count 0.24 10^3/uL (0.0-0.7); Absolute Lymphocyte Count 1.57 10^3/uL (1.2-3.4); Absolute Monocyte Count 0.51 10^3/uL (0.1-0.8); Absolute Neutrophil Count 4.49 10^3/uL (1.2-6.7); Basophils % 0.4; Eosinophils % 3.5; HCT 34.6 % (36.0-46.0); HGB 11.2 g/dL (11.2-15.7); Immature Grans % 0.4; Lymphocytes % 22.9; MCHC 32.4 % (32.0-36.0); MCV 87 fL (80-95); MPV 9.6 fL (8.0-11.0); Monocytes % 7.4; Neutrophils % 65.4; Platelet Count 422 10^3/uL (130-400); RDW 13.2 % (11.7-14.6); RDW-SD 41.4 fL; WBC 6.87 10^3/uL (4.4-10.8)
[2023-08-26 14:02] LABS: ESR 29 mm/hr (0-20)
[2023-08-26 14:43] LABS: ALT 27 U/L (14-59); AST 21 U/L (15-37); Albumin 3.6 g/dL (3.4-5.0); Alkaline Phosphatase 105 U/L (46-116); Anion Gap 7.8 mmol/L (3-11); BUN 13 mg/dL (7-18); Bilirubin, Total 0.5 mg/dL (0.2-1.0); CO2 30.2 mmol/L (21.0-32.0); CREATININE 1.1 mg/dL (0.55-1.02); Calcium 9.4 mg/dL (8.5-10.1); Chloride 103 mmol/L (98-107); Estimated GFR 65.55 (mL/min/1.73m2); Glucose 79 mg/dL (74-106); Lipase 35 U/L (16-77); Potassium 3.6 mmol/L (3.5-5.1); Sodium 141 mmol/L (136-145); TSH (W/Ref FT4) 20.55 uIU/mL (0.36-3.74); Total Protein 8.1 g/dL (6.4-8.2)
[2023-08-26 15:04] LABS: FREE T4 0.69 ng/dL (0.76-1.46)
[2023-08-29 13:03] LABS: Antistrep-O Titer 438 IU/mL (0 - 530)
== END 2023-08-26 13:55 | disposition home or self-care (01) ==
LOC: LBO 13:55
PROVIDERS: PCP Nurse Practitioner Family; Visit Provider Physician Assistant
DX: L52 Erythema nodosum (principal); E03.9 Hypothyroidism, unspecified
CPT/HCPCS: 36415; 80053; 83690; 85652; 84439; 84443; 85025; 86060

== ENCOUNTER → 2023-09-02 00:38 | Outpatient (CLI) | payer MEDICAID, SELFPAY ==
--- NOTE | 2023-09-02 06:45 | DI.CT_ITS ---
Exam(s) CT CHEST WO EXAM: CT CHEST WO CLINICAL HISTORY: evaluate pathology,HILAR ENLARGEMENT,R91.8,F/U XR. TECHNIQUE: Imaging protocol: Axial computed tomography images were obtained and coronal and sagittal reformatted images were created and reviewed. CONTRAST MATERIAL: Noncontrast COMPARISON: CR XR CHEST 2V PA LATERAL from 08/26/2023 FINDINGS: Pulmonary parenchyma: Patchy peripheral infiltrates bilaterally, greater at the lower lobes. Emphysema: None. Tracheobronchial tree: No mucous plugging. No bronchiectasis . Interstitial changes: None. Pleura: No effusion or pneumothorax. Heart: The heart is mildly dilated. The coronary arteries show mildcalcifications. Aorta: Thoracic aorta non-dilated. Mildatherosclerotic changes. Lymph nodes: Mild enlarged mediastinal and hilar lymph nodes. Hilar lymph nodes are not well evaluat ed due to lack of IV contrast. The largest node is in the to the left of the aorta measuring 2.9 x 1 .5 cm. Bones: Degenerative changes are seen. No evidence of compression fracture. Upper abdomen: Unremarkable. Soft tissues: There is a 17 millimeter subcutaneous nodule at the lower right axilla which likely rep resents a sebaceous cyst. Clinical correlation recommended. IMPRESSION: Mildly enlarged hilar mediastinal lymph nodes. Patchy bilateral peripheral pulmonary opacities may r epresent infectious or inflammatory infiltrates. Findings may represent sarcoidosis versus other inf ectious or inflammatory conditions. RADIATION DOSE DELIVERED: 565.91mGy.cm Total DLP 565.91mGy.cm Total DLP DATA REPOSITORY: All CT scans at this facility are submitted to the National Radiology Data Registry (NRDR) Dose Index Registry (DIR) with the [employer] (ACR). RADIATION OPTIMIZATION: All CT scans at this facility use at least one of these dose optimization te chniques: automated exposure control; mA and/or kV adjustment per patient size (includes targeted exa ms where dose is matched to clinical indication); or iterative reconstruction.
== END ==
PROVIDERS: PCP Nurse Practitioner Family; Visit Provider Nurse Practitioner Family
DX: R91.8 Other nonspecific abnormal finding of lung field (principal)
CPT/HCPCS: 71250

== ENCOUNTER 2023-10-04 17:18 | Inpatient (IN) | payer MEDICAID, SELFPAY ==
[2023-10-04] VITALS (17 sets, daily range): BP systolic 161–209; BP diastolic 101–140; PULSE 71–137; RESP 11–22; TEMP 36.7–37.5; O2SAT 93–100
--- NOTE | 2023-10-04 17:30 | DI.CT_ITS ---
Exam(s) CT ABDOMEN PELVIS W EXAM: CT ABDOMEN PELVIS W CLINICAL HISTORY: upper abd pain, h/o pancreatitis. TECHNIQUE: Imaging Protocol: Axial computed tomography images with coronal and sagittal reformatted images were created and reviewed CONTRAST MATERIAL: Intravenous: Omnipaque-350 100cc Oral: None COMPARISON: CT CT ABDOMEN PELVIS W from 06/16/[address] ABDOMEN PELVIS W from 08/07/2023 FINDINGS: VISUALIZED LUNG BASES: No nodules nor pleural effusions evident. ABDOMEN: LIVER: There are no focal hepatic lesions evident. No dilated intrahepatic ducts. GALLBLADDER/BILIARY: No obvious gallbladder pathology. CBD is mildly dilated, measuring 7-8 mm.. GI: The duodenum is patulous. There is no remaining abnormal fluid collection in this region, having been previously-recently drained. The amount of remnant streaking anterior to the right psoas muscl e has further decreased which was the lower aspect of the abscess which was drained via a enteric met hod.. PANCREAS: No evidence of new pancreatic mass nor dilatation of the pancreatic duct. Previously descr ibed fluid subjacent to the pancreatic tail and spleen again noted which is most probably pseudocyst, not further increased in size. There is mild streaking in the central mesentery related to the panc reas again noted but not increased from previous. SPLEEN: Spleen is not enlarged. No obvious intrasplenic lesions. Splenic and portal veins are paten t. ADRENALS: There are no significant adrenal masses. KIDNEYS:No cysts evident. No solid renal masses. No calculi nor hydronephrosis.. ABDOMINAL AORTA: Abdominal aorta is not enlarged. LYMPH NODES:There is no retroperitoneal nor paraaortic adenopathy. ABDOMINAL WALL: No evidence of significant anterior abdominal wall nor inguinal hernia. GI: There is no evidence of bowel obstruction, free air, nor abscess. PELVIS: GI: No evidence of appendicitis.No evidence of sigmoid diverticulitis. LYMPH NODES: There is no intrapelvic nor inguinal adenopathy. REPRODUCTIVE: Uterus and adnexal regions age-appropriate. URINARY BLADDER: No calculi nor obvious masses evident OSSEOUS: No fractures and no significant osseous lesions. IMPRESSION: 1. Compared to the prior CT scan of 08/07/2023 the enteric during in the duodenum has been removed an d although the duodenum is somewhat patulous, there has been significant resolution of most of the ab scess with only a small amount of remnant streaking above the ipsilateral psoas muscle. No bowel obs truction, free air, nor new abscess. However, there is still evident a some left-sided fluid subjace nt to the splenic tail similar to previous and most probably a pseudocyst. 2. There is mild streaking in the central mesentery noted in the region the upper mesenteric vessels and uncinate process. Possibly new onset recurrent pancreatitis versus remnant inflammatory change f rom prior pancreatitis. Pancreatic duct is not dilated. There are no pancreatic calcifications. No distinct pancreatic mass. Report called by myself to ER provider RADIATION DOSE DELIVERED: 1,189.66mGy.cm Total DLP DATA REPOSITORY: All CT scans at this facility are submitted to the National Radiology Data Registry (NRDR) Dose Index Registry (DIR) with the [employer] (ACR). RADIATION OPTIMIZATION: All CT scans at this facility use at least one of these dose optimization te chniques: automated exposure control; mA and/or kV adjustment per patient size (includes targeted exa ms where dose is matched to clinical indication); or iterative reconstruction.
--- NOTE | 2023-10-04 17:43 | W.ED.GENAD ---
Discharge Plan Disposition [facility] Condition: Stable Discharge Details Clinical Impression: Acute pancreatitis Primary Care Provider: Cherise Chambers ED Provider: Harriet Perez Home Meds and New Rx's Prescriptions: No Action methadone 10 mg/5 mL solution 130 mg PO DAILY levothyroxine 137 mcg capsule 137 mcg PO DAILY Qty: 90 3RF chlorthalidone 25 mg tablet 25 mg PO DAILY Qty: 90 3RF prednisone 10 mg tablet 10 mg PO DIRECTED Qty: 41 0RF Rx Instructions: take 4 tabs for 5 days, 3 tabs for 4 days, 2 tabs for 3 days, 1 tab for 3 days epinephrine 0.3 mg/0.3 mL auto-injector 0.3 mg IM ONCE Qty: 1 2RF Rx Instructions: as a single dose; may repeat once HPI General Date/Time Provider Initiated Documentation: 10/04/23 17:32. HPI Narrative: Yamilet is a 38-year-old female with history of alcoholism, pancreatitis, and opioid use disorder currently in remission who presents to the emergency department today for evaluation of upper abdominal pain. She reports she has been abstaining from alcohol since April, but on Tuesday (2 days ago) she had a whiskey sour and fatty meals while on vacation. She had some upper abdominal discomfort starting couple hours after that. Pain had persisted at a 2 out of 10 level until an hour ago when she developed severe pain that radiates around her back. Denies fever, change in PO intake until onset of severe pain, nausea/vomiting, change in bowel or bladder function, black/tarry stools, or dysuria. She has a history of pancreatic abscess and stenting, says MRI in August was normal. No abd surgeries other than . Related Data Home Medications Medication Instructions Recorded Confirmed epinephrine 0.3 mg/0.3 mL 0.3 mg (0.3 mL) IM ONCE #1 ea 07/30/20 10/04/23 injection, auto-injector methadone 10 mg/5 mL oral solution 130 mg PO DAILY 09/15/22 10/04/23 levothyroxine 137 mcg capsule 137 mcg PO DAILY #90 tab-caps 07/04/23 10/04/23 chlorthalidone 25 mg tablet 25 mg PO DAILY #90 tabs 09/05/23 10/04/23 prednisone 10 mg tablet 10 mg PO DIRECTED #41 tabs 09/26/23 10/04/23 Previous Rx's Medication Instructions Recorded epinephrine 0.3 mg/0.3 mL 0.3 mg (0.3 mL) IM ONCE #1 ea 07/30/20 injection, auto-injector levothyroxine 137 mcg capsule 137 mcg PO DAILY #90 tab-caps 07/04/23 chlorthalidone 25 mg tablet 25 mg PO DAILY #90 tabs 09/05/23 prednisone 10 mg tablet 10 mg PO DIRECTED #41 tabs 09/26/23 Allergies Allergy/AdvReac Type Severity Reaction Status Date / Time venom-honey bee Allergy Severe ANAPHYLAXSI Verified 09/26/23 14:32 [bee venom (honey bee)] S hymenoptera allergenic AdvReac Severe Anaphylaxis Uncoded 09/19/23 08:12 extract General Stated Complaint: Abd Prob NAKUL: 2 Review of Systems Narrative: see HPI Exam Const General: cooperative and in distress (in severe pain) Resp Effort & Inspection: normal respiratory effort and able to speak in complete sentences Auscultation: clear to auscultation bilaterally Cardio Rate: tachycardic Rhythm: regular rhythm GI Inspection: normal to inspection, no abdominal wall ecchymosis and non-distended Palpation: soft, not rigid and tender in the LUQ and in the RUQ Auscultation: normal bowel sounds Course Vital Signs Vital signs: Vital Signs Temperature 37.5 C 10/04/23 17:21 Pulse 137 H 10/04/23 17:21 Respiratory Rate 22 10/04/23 17:21 Blood Pressure 209/131 H 10/04/23 17:21 Pulse Oximetry 100 10/04/23 17:21 Temperature 37.5 C 10/04/23 17:21 Temperature Source Temporal Artery Scan 10/04/23 17:21 Pulse 137 H 10/04/23 17:21 Respiratory Rate 22 10/04/23 17:21 Blood Pressure 209/131 H 10/04/23 17:21 Pulse Oximetry 100 10/04/23 17:21 Pain Level 9 10/04/23 17:21 Medical Decision Making Yamilet is a 38-year-old female with history of alcoholism, pancreatitis, CKD, HTN, and opioid use disorder currently in remission (treated with methadone 130 mg daily) who presents to the emergency department today for evaluation of upper abdominal pain. She reports she has been abstaining from alcohol since April, but on Tuesday (2 days ago) she had a whiskey sour and fatty meals while on vacation. She had some upper abdominal discomfort starting couple hours after that. Pain had persisted at a 2 out of 10 level until an hour ago when she developed severe pain that radiates around her back. Denies fever, change in PO intake until onset of severe pain, nausea/vomiting, change in bowel or bladder function, black/tarry stools, or dysuria. She has a history of pancreatic abscess and stenting, says MRI in August was normal. No abd surgeries other than . Physical exam remarkable for pt in obvious pain, shaking and diaphoretic, holding upper abdomen. Abdomen is soft, nondistended, tender to palpation in upper quadrants. Normoactive BS. Tachycardia noted. Easy work of breathing, lung sounds clear bilaterally. D/dx includes but is not limited to: pancreatitis (posssibly with complication such as abscess), gastritis, cholecystitis, biliary duct obstruction I independently interpreted the following tests: CBC remarkable for WBC 12.18; mild hypokalemia (K 3.2) on CMP, and lipase elevated at 331. CT scan abd/pel performed with contrast, notable for streaking anterior to the right psoas and mild streaking in the central mesentery. Labs and CT consistent with acute pancreatitis. While in the ED, Yamilet received IV fluids, toradol, and dilaudid for pain control. Discussed case with Dr. Guzman, hospitalist. He is agreeable to admitting patient for management of pancreatitis, including pain control and n.p.o. status with IV fluids. Reviewed admission orders with him, Dr. Guzman to, in this evening for patient's admission. Pt is agreeable with plan of care Quality:SDOH Health Related Social Needs: No Data to Display PFSH All Active Problems (Updated 10/04/23 @ 20:55 by Harriet Montelongo) Acute pancreatitis (Acute) Gilberto's syndrome (Acute) Abnormal computerized axial tomography of chest (Acute) Abscess of pancreas (Acute) Opiate addiction (Chronic) Pseudocyst of pancreas (Chronic) Alcoholism (Chronic) GERD (gastroesophageal reflux disease) (Chronic) Fatty liver disease, nonalcoholic (Chronic) Hypertension (Chronic) CKD (chronic kidney disease) stage 3, GFR 30-59 ml/min (Chronic) Opioid use disorder (Chronic) Methadone through [facility] Hypothyroidism (Chronic) Generalized anxiety disorder (Chronic) Medical History Major depressive disorder Temporomandibular joint disorder Surgical History History of section (05/28/14) Family History (Updated 09/26/23 @ 14:38 by Jeri Solorio) Mother Alcohol abuse Depression Father Alcohol abuse Substance abuse Sister Depression Sister Substance abuse Depression Son No problems noted. Son No problems noted. Maternal Grandfather Colon cancer Skin cancer (melanoma) Type 2 diabetes mellitus Heart disease Maternal Grandmother Heart disease SLE (systemic lupus erythematosus) Osteoporosis Paternal Grandfather No problems noted. Paternal Grandmother No problems noted. 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 Pets and animals: Yes Pets and animals: cat(s), dog(s), hamster(s) and farm animals Sexually active: Yes Do you think of yourself as: straight/heterosexual Current gender identity: female What is your relationship status?: living with partner How often do you talk on the phone with friends or family?: three or more times per week How often do you get together with friends or relatives?: once per week How often do you attend roman catholic or spiritism services?: 1-3 times per year Do you belong to any clubs or organized social groups?: no Panel score (0-1 are the most socially isolated patients): 2 What type of physical activity do you participate in: none Duration: 15-30 minutes/day Frequency: 5-6 times per week Eloisa/Mu-Ism: Tenriism Special eloisa needs: No Seatbelt use: always Do you feel safe at home: Yes Do you feel safe in your relationship?: Yes Female Reproductive History Menstrual control method: natural family planning History History 1 Para Hx # Term Pregnancies Multiple births 1 Hx # Pregnancies Ectopic pregnancies AB induced Hx Number of Living Children 2 AB spontaneous
[2023-10-04 17:51] LABS: Abs Immature Grans 0.15 10^3/uL (0.0-0.06); Absolute Eosinophil Count 0.01 10^3/uL (0.0-0.7); Absolute Lymphocyte Count 2.62 10^3/uL (1.2-3.4); Absolute Monocyte Count 0.54 10^3/uL (0.1-0.8); Basophils % 0.2; Eosinophils % 0.1; HCT 41.5 % (36.0-46.0); HGB 13.8 g/dL (11.2-15.7); Immature Grans % 1.2; Lymphocytes % 21.5; MCH 27.8 pg (27.0-33.0); MCHC 33.3 % (32.0-36.0); MCV 84 fL (80-95); MPV 9.7 fL (8.0-11.0); Monocytes % 4.4; Neutrophils % 72.6; Platelet Count 451 10^3/uL (130-400); RBC 4.97 10^6/uL (3.93-5.22); RDW 13.2 % (11.7-14.6); RDW-SD 39.9 fL; WBC 12.18 10^3/uL (4.4-10.8)
[2023-10-04] MEDS: HYDROmorphone 2 MG/ML SYR 0.5 MG IVP ×3 (17:53→23:05)
[2023-10-04 17:54] LABS: Absolute Basophil Count 0.02 10^3/uL (0.0-0.2); Absolute Neutrophil Count 8.84 10^3/uL (1.2-6.7)
[2023-10-04 18:06] LABS: ALT 27 U/L (14-59); AST 15 U/L (15-37); Albumin 4.6 g/dL (3.4-5.0); Alkaline Phosphatase 116 U/L (46-116); Anion Gap 11.2 mmol/L (3-11); BUN 19 mg/dL (7-18); Bilirubin, Total 0.5 mg/dL (0.2-1.0); CO2 30.8 mmol/L (21.0-32.0); CREATININE 1.1 mg/dL (0.55-1.02); Calcium 9.8 mg/dL (8.5-10.1); Chloride 97 mmol/L (98-107); Estimated GFR 65.55 (mL/min/1.73m2); Glucose 129 mg/dL (74-106); Potassium 3.2 mmol/L (3.5-5.1); Sodium 139 mmol/L (136-145); Total Protein 9.2 g/dL (6.4-8.2)
[2023-10-04 18:07] LABS: Lipase 331 U/L (16-77)
[2023-10-04 18:13] LABS: Bilirubin Negative (Negative); Blood Negative (Negative); Clarity Clear (Clear); Glucose Negative (Negative); Ketones Negative (Negative); Leukocyte Esterase Negative (Negative); Nitrite Negative (Negative); Urobilinogen 0.2 mg/dL (Up to 0.2)
[2023-10-04] MEDS: Omnipaque 350 MG/ML 100 ML BTL IJ (18:20)
[2023-10-04] MEDS: Normal Saline - Diluent 50 ML VIAL IJ (18:21)
[2023-10-04] MEDS: Normal Saline 1,000 ML 125 ML IV (18:24)
[2023-10-04] MEDS: Ketorolac 15 MG/ML VIAL IVP (18:30)
[2023-10-04] MEDS: HYDROmorphone 2 MG/ML SYR 1 MG IM (20:41)
[2023-10-04] MEDS: Normal Saline Flush 10 ML SYR IVP (22:05)
[2023-10-04 22:29] LABS: *AMPHETAMINES SCREEN URINE Negative (Negative); *BARBITURATES SCREEN URINE Negative (Negative); *BENZODIAZEPINES SCREEN URINE Negative (Negative); Cannabinoids THC Negative (Negative); Cocaine Screen,Urine Negative (Negative); METHADONE URINE SCREEN Positive (Negative); OPIATES URINE SCREEN Negative (Negative)
[2023-10-04 22:30] LABS: Tricyclic Antidepressants Negative (Negative)
--- NOTE | 2023-10-04 22:51 | W.PM.HP.N ---
Date of service: 10/04/23 Time of Service: 22:51 Assessment and Plan Assessment and plan (1) Acute pancreatitis: Status: Acute Assessment and plan: Symptoms, CT findings, and elevated lipase all point to a diagnosis of pancreatitis. Will severe pain and inability to take po fluids she should be admitted for bowel rest, pain management, and observation. Trigger appears to be the alcoholic drink she had 2 days ago. The chorthalidone is also new and is a/w pancreatitis risk. Will hold this. NPO for now with IV fluids. Try early feeding tomorrow if she feels up to it. Pain management with hydromorphone. she may need higher than typical doses due to opioid tolerance. (2) Opioid use disorder: Status: Chronic Assessment and plan: She reports stability on methadone, continue this (try it with sips in the morning) If she isn't able to take po, we will need to give more IV opioids (3) Hypothyroidism: Status: Chronic Assessment and plan: TSH was high in August, has been on 137mcg dose, repeat. Qualifiers: Hypothyroidism type: acquired Qualified Code(s): E03.9 - Hypothyroidism, unspecified (4) Alcoholism: Status: Chronic Assessment and plan: Has been doing well for ~6 months. I recommended complete cessation indefinitely given this flair of pancreatitis after a since drink. (5) Hypertension: Status: Chronic Assessment and plan: BP high in pain right now. Given concern for chlorthalidone and pancreatitis risk, as well as CKD, I would consider an ARB that is not highly a/w pancreatitis, perhaps a long actine agent like olmesartan. 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 She was started on prednisone at 09/[address] Garber. Will hold this for now. Erythema nodosa has resolved. There is a possible association of sarcoid with pancreatitis caused by hypercalcemia, but her calcium has been normal. (7) DVT prophylaxis: Status: Acute Assessment and plan: enoxaparin History of Present Illness History of Present Illness Chief Complaint: abdominal pain Narrative: 38 yo F with history of alcohol use disorder in remission and recurrent alcoholic pancreatitis presenting with severe epigastric abdominal pain typically of her previous episodes of her pancreatitis. Patient states she was admitted in December, April, and June for pancreatitis at [facility] [place]. She had a history of pancreatic pseudocyst that was drained and resolved. She stopped drinking alcohol completely in April 2023, where previously she was drinking 1/2 of a fifth of liquor a day. 2 days prior to admission she was eating out and had a fatty meal and consumed a single whiskey sour drink, which was her first alcoholic beverage since April. About 2 hours later, she started to experience a constant achey 2-3/10 epigastric pain. This was not debilitating. She was still able to eat and have regular bowel movements. She did not have associated nausea or vomiting or any stool changes. She went to work on the day of admission, and soon after work she started having more severe epigastric twisting pain that radiated to her mid back and a band across her upper abdomen. She had some mild nausea with the severe pain. The pain was as bad as it ever had been with her pancreatitis, so she came into the ED. Of note, she was recently diagnosed with eythema nodosum and sarcoidosis (Gilberto's Syndrome) and started on prednisone a few weeks ago. She was also started on chlorthaidone for blood pressure and swelling in her legs. She denies an recent abdominal trauma. Review of Systems Constitutional Constitutional: Reports anorexia, Denies chills, Denies fever(s), Denies headache(s), Reports lethargy, Denies weakness and Denies weight loss Eyes Eyes: Denies change in vision and Denies irritation ENT Ears, Nose, Mouth, and Throat: Denies dizziness, Denies headache(s), Denies nasal congestion, Denies nasal discharge and Denies sore throat Cardiovascular Cardiovascular: Denies chest pain, Denies palpitations, Denies dyspnea and Denies orthopnea Respiratory Respiratory: Denies cough, Denies excessive phlegm production, Denies dyspnea and Denies wheezing Gastrointestinal Gastrointestinal: Denies melena, Denies change in stool character, Denies constipation, Denies heartburn, Reports nausea (a bit with pain) and Denies vomiting Genitourinary Genitourinary: Denies hematuria, Denies dysuria and Denies urinary incontinence Musculoskeletal Musculoskeletal: Denies arthralgias Integumentary/Breasts Skin/Breast: Denies non-healing lesions, Denies rash (nodules on shins resolving) and Denies skin ulcer Neurologic Neurologic: Denies dizziness, Denies headache(s), Denies sensory deficit and Denies weakness Psychiatric Psychiatric: Denies depression and Denies mood swings Endocrine Endocrine: Denies palpitations Hematologic/Lymphatic Hematologic/Lymphatic: Denies easy bleeding Allergic/Immunologic Allergic/Immunologic: Denies wheezing PFSH All Active Problems (Updated 10/04/23 @ 23:29 by Dino Guzman) DVT prophylaxis (Acute) Acute pancreatitis (Acute) Gilberto's syndrome (Acute) Abnormal computerized axial tomography of chest (Acute) Abscess of pancreas (Acute) Opiate addiction (Chronic) Pseudocyst of pancreas (Chronic) Alcoholism (Chronic) GERD (gastroesophageal reflux disease) (Chronic) Fatty liver disease, nonalcoholic (Chronic) Hypertension (Chronic) CKD (chronic kidney disease) stage 3, GFR 30-59 ml/min (Chronic) Opioid use disorder (Chronic) Methadone through [facility] Hypothyroidism (Chronic) Generalized anxiety disorder (Chronic) Medical History (Updated 10/04/23 @ 23:29 by Dion Guzman) Major depressive disorder Temporomandibular joint disorder Surgical History (Updated 10/04/23 @ 23:03 by Dino Guzman) History of removal of pancreatic stent History of section (05/28/14) Family History (Updated 09/26/23 @ 14:38 by Jeri Solorio) Mother Alcohol abuse Depression Father Alcohol abuse Substance abuse Sister Depression Sister Substance abuse Depression Son No problems noted. Son No problems noted. Maternal Grandfather Colon cancer Skin cancer (melanoma) Type 2 diabetes mellitus Heart disease Maternal Grandmother Heart disease SLE (systemic lupus erythematosus) Osteoporosis Paternal Grandfather No problems noted. Paternal Grandmother No problems noted. 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 Pets and animals: Yes Pets and animals: cat(s), dog(s), hamster(s) and farm animals Sexually active: Yes Do you think of yourself as: straight/heterosexual Current gender identity: female What is your relationship status?: living with partner How often do you talk on the phone with friends or family?: three or more times per week How often do you get together with friends or relatives?: once per week How often do you attend advent or muslim services?: 1-3 times per year Do you belong to any clubs or organized social groups?: no Panel score (0-1 are the most socially isolated patients): 2 What type of physical activity do you participate in: none Duration: 15-30 minutes/day Frequency: 5-6 times per week Eloisa/Adventist: Tenriism Special eloisa needs: No Seatbelt use: always Do you feel safe at home: Yes Do you feel safe in your relationship?: Yes Additional Social history: Lives in [place] with 9 yo twin boys Female Reproductive History Menstrual control method: natural family planning History History 1 Para Hx # Term Pregnancies Multiple births 1 Hx # Pregnancies Ectopic pregnancies AB induced Hx Number of Living Children 2 AB spontaneous Meds Allergies and Home Medications Allergies Allergy/AdvReac Type Severity Reaction Status Date / Time venom-honey bee Allergy Severe ANAPHYLAXSI Verified 09/26/23 14:32 [bee venom (honey bee)] S hymenoptera allergenic AdvReac Severe Anaphylaxis Uncoded 09/19/23 08:12 extract Home Medications Medication Instructions Recorded Confirmed Type epinephrine 0.3 mg/0.3 mL 0.3 mg (0.3 mL) IM ONCE #1 ea 07/30/20 10/04/23 Rx injection, auto-injector methadone 10 mg/5 mL oral solution 130 mg PO DAILY 09/15/22 10/04/23 History levothyroxine 137 mcg capsule 137 mcg PO DAILY #90 tab-caps 07/04/23 10/04/23 Rx chlorthalidone 25 mg tablet 25 mg PO DAILY #90 tabs 09/05/23 10/04/23 Rx prednisone 10 mg tablet 10 mg PO DIRECTED #41 tabs 09/26/23 10/04/23 Rx Exam Narrative Exam Narrative: GEN: Alert and oriented, pleasant and cooperative, gives linear history. In mild distress at rest. HEENT: Head atraumatic. Conjunctiva clear, no icterus. PEERL, EOMI. no rhinorrhea. MMM, OP benign. Neck is supple with no masses or lymphadenopathy, trachea midline LUNGS: CTAB with normal effort CV: RRR with no murmurs, gallops, or rubs. ABD: +BS, soft, moderate to severe epigastric tenderness with guarding on deep palpation. no HSM or other masses. EXT: no cyanosis, clubbing, or edema MSK: No joint redness or swelling. No CVAT. NEURO: CN 2-12 grossly intact. Normal movement of 4 extremities. Normal speech and coordination SKIN: No rashes or open wounds. subtly tender faint purplish nodules shins. PSYCH: normal mood and affect, normal thought process. Results Imaging Additional studies: see gastro consult external dated 09/23/23 for the 09/15/23 report of MRCP at Imaging Studies: CT Abdomen: 1. Compared to the prior CT scan of 08/07/2023 the enteric during in the duodenum has been removed and although the duodenum is somewhat patulous, there has been significant resolution of most of the abscess with only a small amount of remnant streaking above the ipsilateral psoas muscle. No bowel obstruction, free air, nor new abscess. However, there is still evident a some left-sided fluid subjacent to the splenic tail similar to previous and most probably a pseudocyst. 2. There is mild streaking in the central mesentery noted in the region the upper mesenteric vessels and uncinate process. Possibly new onset recurrent pancreatitis versus remnant inflammatory change from prior pancreatitis. Pancreatic duct is not dilated. There are no pancreatic calcifications. No distinct pancreatic mass. Labs 10/04/23 17:35 10/04/23 17:35 Labs: Laboratory Results - last 24 hr 10/04/23 10/04/23 17:35 18:00 WBC 12.18 H RBC 4.97 Hgb 13.8 Hct 41.5 MCV 84 MCH 27.8 MCHC 33.3 RDW 13.2 Plt Count 451 H MPV 9.7 Immature Gran % 1.2 Neutrophils % 72.6 Lymphocytes % 21.5 Monocytes % 4.4 Eosinophils % 0.1 Basophils % 0.2 Nucleated RBC % 0.0 Absolute Neutrophils 8.84 H Absolute Lymphocytes 2.62 Absolute Monocytes 0.54 Absolute Eosinophils 0.01 Absolute Basophils 0.02 Sodium 139 Potassium 3.2 L Chloride 97 L Carbon Dioxide 30.8 Anion Gap 11.2 H BUN 19 H Creatinine 1.1 H Est GFR (CKD-EPI 2020) 65.55 Glucose 129 H Calcium 9.8 Total Bilirubin 0.5 AST 15 ALT 27 Alkaline Phosphatase 116 Total Protein 9.2 H Albumin 4.6 Lipase 331 H Urine Color Yellow Urine Clarity Clear Urine pH 7.0 Ur Specific [place] 1.020 Urine Protein Negative Urine Ketones Negative Urine Blood Negative Urine Nitrite Negative Urine Bilirubin Negative Urine Urobilinogen 0.2 Ur Leukocyte Esterase Negative Urine Glucose Negative Urine Opiates Screen Negative Urine Methadone Screen Positive A Ur Barbiturates Screen Negative Ur Tricyclics Screen Negative Ur Amphetamines Screen Negative U Benzodiazepines Scrn Negative Urine Cocaine Screen Negative Ur THC Screen Negative Last Vital Signs Temp 36.7 C 10/04/23 22:05 Pulse 75 10/04/23 22:05 Resp 18 10/04/23 22:05 BP 167/106 H 10/04/23 22:05 Pulse Ox 99 10/04/23 22:05 PAWSS Have you Been Recently Intoxicated or Drunk Within the Last 30 days?: No Have you Ever Experienced Previous Episodes of Alcohol Withdrawal?: No Have you ever Experienced Withdrawal Seizures?: No Have you ever Experienced Delirium Tremens(DT)s?: No Have you ever undergone Alcohol Rehabilitation Treatment (i.e, inpt ot outpatient treatment programs)?: No Have you ever Experienced Blackouts?: No Have you ever Combined Alcohol with other Downers within the last 90 days?: No Have you ever Combined Alcohol with any other Substance of Abuse during the last 90 days?: No Positive Blood Alcohol level on Presentation? [PCS.BAL]: No Evidence of Increased Autonomic Activity (i.e. HR>120, tremor, sweating, agitation, nausea)?: No Result: 0 Time Spent Time spent with Patient: 55-74 minutes Time was spent: preparing to see the patient(eg.review tests), obtaining and/or reviewing separately otained hiistory, ordering medications,tests, procedures, referring, communicating with other health critical care unit nurse, indepentently interpreting results and counseling the patient
[2023-10-04] MEDS: Acetaminophen 325 MG TAB PO (23:05)
[2023-10-04] MEDS: POTASSIUM CHLORIDE/D5-0.45NACL 1,000 ML 125 MEQ IV (23:06)
[2023-10-05] VITALS (64 sets, daily range): BP systolic 115–195; BP diastolic 81–136; PULSE 65–110; RESP 11–20; TEMP 35.5–37; O2SAT 94–99
[2023-10-05] MEDS: HYDROmorphone 2 MG/ML SYR 1 MG IV ×6 (01:17→07:42)
[2023-10-05] MEDS: Normal Saline Flush 10 ML SYR IVP ×5 (03:28→12:03)
[2023-10-05] MEDS: Ondansetron 4 MG/2 ML VIAL IVP ×2 (03:45→11:17)
[2023-10-05 06:55] LABS: Absolute Basophil Count 0.05 10^3/uL (0.0-0.2); Absolute Lymphocyte Count 2.73 10^3/uL (1.2-3.4); Absolute Monocyte Count 0.91 10^3/uL (0.1-0.8); Absolute Neutrophil Count 9.06 10^3/uL (1.2-6.7); Basophils % 0.4; Eosinophils % 0.8; HCT 40.1 % (36.0-46.0); HGB 13.1 g/dL (11.2-15.7); Immature Grans % 0.8; Lymphocytes % 21.1; MCH 27.2 pg (27.0-33.0); MCHC 32.7 % (32.0-36.0); MCV 83 fL (80-95); MPV 9.8 fL (8.0-11.0); Neutrophils % 69.9; Platelet Count 377 10^3/uL (130-400); RBC 4.82 10^6/uL (3.93-5.22); RDW 13.2 % (11.7-14.6); RDW-SD 39.6 fL; WBC 12.96 10^3/uL (4.4-10.8)
[2023-10-05 07:08] LABS: BUN 19 mg/dL (7-18); CREATININE 1.1 mg/dL (0.55-1.02); Calcium 9.2 mg/dL (8.5-10.1); Chloride 101 mmol/L (98-107); Estimated GFR 65.55 (mL/min/1.73m2); Glucose 120 mg/dL (74-106); Potassium 3.3 mmol/L (3.5-5.1); Sodium 141 mmol/L (136-145)
[2023-10-05] MEDS: POTASSIUM CHLORIDE/D5-0.45NACL 1,000 ML 125 MEQ IV ×2 (08:02→15:59)
[2023-10-05] MEDS: Methadone Liquid 10 MG/ML 130 MG PO (08:57)
--- NOTE | 2023-10-05 09:21 | PDOC.CMIN ---
Date of service: 10/05/23 Time of Service: 09:21 Care Management Initial Assmt Initial Assessment REASON FOR HOSPITALIZATION:: Pancreatitis PREVIOUS FUNCTIONAL STATUS/SOCIAL/FAMILY SUPPORTS:: Yamilet lives in [place] with her s/o, Lukas. They have twin boys who are 8, and take care of her niece and nephew (12 & 16). 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 She is independent at baseline. CURRENT FUNCTIONAL STATUS:: Yamilet was transferred to the ICU related to increased pain, and concern for withdrawal. ADVANCE DIRECTIVES:: None on file. Has patient been provided with info about the portal/API?: Yes Did the patient sign up for the portal?: Yes CODE STATUS:: Full Code INSURANCE COVERAGE / FINANCIAL ISSUES:: [facility] PRIMARY CARE PHYSICIAN:: Cherise Chambers POTENTIAL DISCHARGE NEEDS:: Follow up appointments. PATIENT/FAMILY EDUCATION NEEDS:: Review discharge instructions, discuss community based supports. ANTICIPATED BARRIERS TO DISCHARGE:: None identified. TRANSPORTATION:: Via private vehicle with , Lukas. PLAN:: Yamilet will return home once medically cleared. Her will drive her home via private vehicle. She will follow up with her PCP and discharge plan of care. CM will continue to follow. PFSH All Active Problems (Updated 10/06/23 @ 17:17 by Bossman Angulo MD) DVT prophylaxis (Acute) Acute pancreatitis (Acute) Gilberto's syndrome (Acute) Abnormal computerized axial tomography of chest (Acute) Abscess of pancreas (Acute) Opiate addiction (Chronic) Pseudocyst of pancreas (Chronic) Alcoholism (Chronic) GERD (gastroesophageal reflux disease) (Chronic) Fatty liver disease, nonalcoholic (Chronic) Hypertension (Chronic) CKD (chronic kidney disease) stage 3, GFR 30-59 ml/min (Chronic) Opioid use disorder (Chronic) Methadone through [facility] Hypothyroidism (Chronic) Generalized anxiety disorder (Chronic) Medical History (Updated 10/06/23 @ 17:17 by Bossman Angulo MD) Major depressive disorder Temporomandibular joint disorder Surgical History (Updated 10/04/23 @ 23:03 by Dino Guzman) History of removal of pancreatic stent History of section (05/28/14) Family History (Updated 09/26/23 @ 14:38 by Jeri Solorio) Mother Alcohol abuse Depression Father Alcohol abuse Substance abuse Sister Depression Sister Substance abuse Depression Son No problems noted. Son No problems noted. Maternal Grandfather Colon cancer Skin cancer (melanoma) Type 2 diabetes mellitus Heart disease Maternal Grandmother Heart disease SLE (systemic lupus erythematosus) Osteoporosis Paternal Grandfather No problems noted. Paternal Grandmother No problems noted. 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 Pets and animals: Yes Pets and animals: cat(s), dog(s), hamster(s) and farm animals Sexually active: Yes Do you think of yourself as: straight/heterosexual Current gender identity: female What is your relationship status?: living with partner How often do you talk on the phone with friends or family?: three or more times per week How often do you get together with friends or relatives?: once per week How often do you attend yazdanism or yarsanism services?: 1-3 times per year Do you belong to any clubs or organized social groups?: no Panel score (0-1 are the most socially isolated patients): 2 What type of physical activity do you participate in: none Duration: 15-30 minutes/day Frequency: 5-6 times per week Eloisa/Voodoo: Religion Special eloisa needs: No Seatbelt use: always Do you feel safe at home: Yes Do you feel safe in your relationship?: Yes Additional Social history: Lives in [place] with 9 yo twin boys Female Reproductive History Menstrual control method: natural family planning History History 1 Para Hx # Term Pregnancies Multiple births 1 Hx # Pregnancies Ectopic pregnancies AB induced Hx Number of Living Children 2 AB spontaneous SDOH(Care Management) Screening Will the Patient Participate in the Screening?: Yes Do you worry about having a steady place to live?: no In the past 12 months, have you had to go without electric, gas, oil or water in your home?: no Have you or anyone in your house had to go without enough food to eat?: no Has lack of transportation kept you from medical appointments or from doing things needed for daily living?: no Has anyone in your support network made you feel unsafe for any reason?: no
[2023-10-05] MEDS: LORazepam 1 MG TAB PO (10:03)
[2023-10-05] MEDS: POTASSIUM CHLORIDE 20 MEQ/100 ML BAG 50 MEQ IVPB ×2 (10:03→12:43)
--- NOTE | 2023-10-05 11:32 | PHA.REVIEW2 ---
Pharmacy Admission Review Admission Clinical Review Admission Pharmacy Review: DVT prophylaxis (Acute) Acute pancreatitis (Acute) Gilberto's syndrome (Acute) venom-honey bee [bee venom (honey bee)] Allergy (Severe, Verified 09/26/23 14:32) ANAPHYLAXSIS hymenoptera allergenic extract Adverse Reaction (Severe, Uncoded 09/19/23 08:12) Anaphylaxis Resuscitation Status Full Code Height 5 ft 8 in Weight 90.718 kg Comments Comments/Follow Ups: Per morning meeting patient was vomiting this morning and remains NPO Pharmacy Admission Review Renal Dosing Renal Dosing: BUN 19 mg/dL (7-18) H 10/05/23 06:20 Creatinine 1.1 mg/dL (0.55-1.02) H 10/05/23 06:20 Medications needing adjustments: Reviewed (CrCl 80.89 mL/min) Anticoagulation Anticoagulation: Hgb 13.1 g/dL (11.2-15.7) 10/05/23 06:20 Hct 40.1 % (36.0-46.0) 10/05/23 06:20 Plt Count 377 10^3/uL (130-400) 10/05/23 06:20 Creatinine 1.1 mg/dL (0.55-1.02) H 10/05/23 06:20 DVT Prophylaxis: Reviewed Medications: Enoxaparin (40mg q24h) Opiate Usage Evaluate Pain Scale/Pains Meds: Reviewed (PRN hydromorphone and FRANDY methadone) Scheduled Bowel Reg ordered if on Opiates?: No Relevant Labs Relevant Labs: Sodium 141 mmol/L (136-145) 10/05/23 06:20 Potassium 3.3 mmol/L (3.5-5.1) L 10/05/23 06:20 Chloride 101 mmol/L (98-107) 10/05/23 06:20 Electrolytes, C-Reactive P, ESR: Reviewed (K 3.3 - repleting, CIWA 9 at 0746 and 11 at 1100, WBC 12.96, Glucose 120) Cardiac Review Cardiac Review: Blood Pressure 185/130 1045 Blood Pressure 195/120 1009 Blood Pressure 185/130 0705 Blood Pressure 165/111 0331 BP, HR, EF%: Reviewed (BP 185/130, HR 110) QTc Review QTc: Reviewed (Most recent EKG was from 05/30 with QTc of 476) IV to PO Switch IV Medications: Reviewed (IV acetaminophen, lorazepam, ondansetron and potassium. Currently NPO due to vomiting and nausea issues) Home Meds Home Med List reviewed: Intervened Relevent Home Meds Not ordered & why?: Chlorthalidone on hold due to pancreatitis, Epipen (PRN) Methadone dose of 130mg daily was confirmed with morning with [facility] Current Meds Current Medication Order Review: Reviewed Comments: Has PRN lorazepam for CIWA (score of 11 at 1100). So far has received 1mg PO but order was just put in for now dose of IVP 2mg. This is in addition to the PRN order. Comments Comments/Follow Ups: Per morning meeting patient was vomiting this morning and remains NPO
[2023-10-05] MEDS: ACETAMINOPHEN 1,000 MG/100 ML BTL 400 MG IVPB ×3 (11:36→22:51)
[2023-10-05] MEDS: Labetalol 100 MG/20 ML VIAL 20 MG IVP (11:56)
[2023-10-05] MEDS: LORazepam 2 MG/ML VIAL IVP (11:57)
--- NOTE | 2023-10-05 16:43 | NUR.NOTE ---
Patient was transferred to ICU @ 1500 via stretcher with two video tape transferrer assist. BP 130/90 HR 86 SpO2 98% on RA CIWA 7 Nursing report given to Candy Hollins RN
[2023-10-05] MEDS: Normal Saline 500 ML IV (17:07)
--- NOTE | 2023-10-05 18:01 | W.PC.ACHO ---
Registration Status: ADM IN Primary Language: Preferred Language: Occitan ED Information & Data Chief Complaint Abd Prob 10/04/23 17:54 Chief Complaint Abd Prob 10/04/23 17:50 Triage Note abd pain with nausea 04/1710/04/23 17:21 pain HX pancreatitis Jun 2023 Medical / Surgical History (Last Updated 10/04/23 @ 23:03 by Dino Guzman) Major depressive disorder Temporomandibular joint disorder (Last Updated 10/04/23 @ 23:03 by Dino Guzman) History of removal of pancreatic stent History of section (05/28/14) Most Recent Vital Signs Temperature 36.6 C 10/05/23 15:41 Temperature Source Temporal Artery Scan 10/05/23 15:41 Pulse 68 10/05/23 13:21 Pulse Rhythm Regular 10/04/23 22:06 Pulse 85 10/04/23 21:20 Respiratory Rate 18 10/05/23 13:21 Respiratory Effort Normal 10/05/23 15:41 Respiratory Depth Normal 10/05/23 15:41 Respiratory Pattern Normal 10/05/23 15:41 Blood Pressure 122/83 10/05/23 15:56 Blood Pressure Mean 128 10/04/23 21:15 Pulse Oximetry 97 10/05/23 13:21 Oxygen Delivery Method Room Air 10/05/23 15:41 Oxygen Flow Rate 0 10/05/23 15:41 Pain Level 7 10/05/23 10:45 Allergies venom-honey bee [bee venom (honey bee)] Allergy (Severe, Verified 09/26/23 14:32) ANAPHYLAXSIS hymenoptera allergenic extract Adverse Reaction (Severe, Uncoded 09/19/23 08:12) Anaphylaxis Precautions Isolation Standard precaution 10/04/23 17:54 Active Medications Generic Name Dose Route Start Last Admin Trade Name Freq PRN Reason Stop Dose Admin Acetaminophen 325 - 650 mg 10/04/23 22:45 10/04/23 23:05 Acetaminophen 325 Mg Tab PO 650 mg Q4H PRN PRN Administration Enoxaparin Sodium 40 mg 10/04/23 23:00 10/04/23 23:07 Enoxaparin 40 Mg/0.4 Ml Syr SC Not Given HS FRANDY Hydromorphone HCl 1 mg 10/05/23 02:23 10/05/23 07:42 Hydromorphone 2 Mg/Ml Syr IV 1 mg Q1H PRN PRN Administration Sodium Chloride 500 mls @ 0 mls/hr 10/05/23 08:00 10/05/23 17:41 Saline 500ml Bag IV 0 mls/hr DIRECTED PRN Infusion As Directed Potassium Chloride/Sodium Chloride 1,000 mls @ 125 mls/hr 10/05/23 08:00 10/05/23 17:41 Kcl 40meq/D5-0.45% Nacl IV 125 mls/hr INFUSION FRANDY Infusion Acetaminophen 1,000 mg in 100 mls @ 400 mls/hr 10/05/23 10:00 10/05/23 17:41 Ofirmev IVPB Infused Q6H FRANDY Infusion Labetalol HCl 20 mg 10/05/23 11:45 10/05/23 11:56 Labetalol 100 Mg/20 Ml Vial IVP 20 mg NOW FRANDY Administration Levothyroxine Sodium 137 mcg 10/05/23 06:00 10/05/23 05:33 Levothyroxine 137 Mcg Tab PO 137 mcg 0600 FRANDY Administration Methadone HCl 130 mg 10/05/23 08:30 10/05/23 08:57 Methadone Liquid 10 Mg/Ml PO 130 mg DAILY FRANDY Administration Ondansetron HCl 4 mg 10/05/23 03:37 10/05/23 11:17 Ondansetron 4 Mg/2 Ml Vial IVP 4 mg Q8H PRN PRN Administration Sodium Chloride 0 ml 10/05/23 08:00 10/05/23 12:03 Normal Saline Flush 10 Ml Syr IVP 30 ml PRN PRN Administration IV IV Catheter Type [Right Peripheral IV Antecubital] IV Catheter Type [Left Peripheral IV Antecubital] IV Catheter Gauge [Left 18 Antecubital] Diagnostics 10/05/23 10/04/23 10/04/23 Range/Units 06:20 18:00 17:35 WBC 12.96 H 12.18 H (4.4-10.8) 10^3/uL RBC 4.82 4.97 (3.93-5.22) 10^6/uL Hgb 13.1 13.8 (11.2-15.7) g/dL Hct 40.1 41.5 (36.0-46.0) % MCV 83 84 (80-95) fL MCH 27.2 27.8 (27.0-33.0) pg MCHC 32.7 33.3 (32.0-36.0) % RDW 13.2 13.2 (11.7-14.6) % Plt Count 377 451 H (130-400) 10^3/uL MPV 9.8 9.7 (8.0-11.0) fL Immature Gran % 0.8 1.2 Neutrophils % 69.9 72.6 Lymphocytes % 21.1 21.5 Monocytes % 7.0 4.4 Eosinophils % 0.8 0.1 Basophils % 0.4 0.2 Nucleated RBC % 0.0 0.0 (0.0-0.3) % Absolute Neutrophils 9.06 H 8.84 H (1.2-6.7) 10^3/uL Absolute Lymphocytes 2.73 2.62 (1.2-3.4) 10^3/uL Absolute Monocytes 0.91 H 0.54 (0.1-0.8) 10^3/uL Absolute Eosinophils 0.10 0.01 (0.0-0.7) 10^3/uL Absolute Basophils 0.05 0.02 (0.0-0.2) 10^3/uL Sodium 141 139 (136-145) mmol/L Potassium 3.3 L 3.2 L (3.5-5.1) mmol/L Chloride 101 97 L (98-107) mmol/L Carbon Dioxide 29.0 30.8 (21.0-32.0) mmol/L Anion Gap 11.0 11.2 H (3-11) mmol/L BUN 19 H 19 H (7-18) mg/dL Creatinine 1.1 H 1.1 H (0.55-1.02) mg/dL Est GFR (CKD-EPI 2020) 65.55 65.55 (mL/min/1.73m2) Glucose 120 H 129 H (74-106) mg/dL Calcium 9.2 9.8 (8.5-10.1) mg/dL Total Bilirubin 0.5 (0.2-1.0) mg/dL AST 15 (15-37) U/L ALT 27 (14-59) U/L Alkaline Phosphatase 116 (46-116) U/L Total Protein 9.2 H (6.4-8.2) g/dL Albumin 4.6 (3.4-5.0) g/dL Lipase 331 H (16-77) U/L Urine Color Yellow (Yellow) Urine Clarity Clear (Clear) Urine pH 7.0 (5-8) Ur Specific [place] 1.020 (1.005-1.025) Urine Protein Negative (Neg-Trace) mg/dL Urine Ketones Negative (Negative) mg/dL Urine Blood Negative (Negative) Urine Nitrite Negative (Negative) Urine Bilirubin Negative (Negative) Urine Urobilinogen 0.2 (Up to 0.2) mg/dL Ur Leukocyte Esterase Negative (Negative) Urine Glucose Negative (Negative) mg/dL Urine Opiates Screen Negative (Negative) Urine Methadone Screen Positive A (Negative) Ur Barbiturates Screen Negative (Negative) Ur Tricyclics Screen Negative (Negative) Ur Amphetamines Screen Negative (Negative) U Benzodiazepines Scrn Negative (Negative) Urine Cocaine Screen Negative (Negative) Ur THC Screen Negative (Negative) [id number] Documentation POC Urine Test Start: 10/04/23 17:42 Freq: .Urine Test Status: Complete Protocol: Activity Type Activity Date Activity User E-sign Co-sign Detail Recorded Client Recorded Date Recorded By Document 10/04/23 18:07 JK [id number] 10/04/23 18:07 JK Intake and Output - 24 Hour Total 10/04/23 17:18 thru 10/05/23 17:41 Intake Total 3300.006 Output Total 300 Balance 3000.006 Weight 90.718 kg Intake: IV 3300.006 Output: Emesis 300 Other: Urine Color Yellow Urine Appearance Clear Emesis Description Projectile Bile Voiding Methods Toilet Falls Risk Assessment History of Falls No History 10/05/23 15:41 Contributing Factors Medications 10/05/23 15:41 Ambulatory Aids Independent 10/05/23 15:41 Tubes/Lines With any additional score 10/05/23 15:41 Gait Evaluation No gait disturbance 10/05/23 15:41 Cognition No cognitive impairment 10/05/23 15:41 Fall Total Score 23 10/05/23 15:41 Level of Risk Standard/Low Risk 10/05/23 15:41 Problems (Last Updated 10/04/23 @ 23:03 by Dino Guzman) DVT prophylaxis (Acute) Acute pancreatitis (Acute) Gilberto's syndrome (Acute) Alcoholism (Chronic) Hypertension (Chronic) Opioid use disorder (Chronic) Hypothyroidism (Chronic) Notes 10/05/23 16:43 Nursing Notes by Velia Bishop Patient was transferred to ICU @ 1500 via stretcher with two transfer professor assist. BP 130/90 HR 86 SpO2 98% on RA CIWA 7 Nursing report given to Candy Hollins RN Initialized on 10/05/23 16:43 - END OF NOTE v v v v v v v v v Sending and/or Receiving Nurses: Please use comment section below to note any information pertinent to the patient hand-off not included above. Information / Comments: CIWA 8. 2mg ativan given. Dilaudid for Pain. Labetolol given for HTN with good effect. All questions answered. Report received from: Gerard Escobedo, RN
--- NOTE | 2023-10-05 19:28 | W.PM.PROGNOT ---
Date of Service Date of service: 10/05/23 Time of Service: 10:00 Assessment and Plan Assessment and plan (1) Acute pancreatitis: Status: Acute Assessment and plan: NPO Showing signs of withdrawal from alcohol; ciwa scale and benzo protocol started; transferred to ICU IV fluids. Pain management with hydromorphone. she may need higher than typical doses due to opioid tolerance. (2) Opioid use disorder: Status: Chronic Assessment and plan: She reports stability on methadone, continue this (try it with sips in the morning) If she isn't able to take po, we will need to give more IV opioids (3) Hypothyroidism: Status: Chronic Assessment and plan: TSH was high in August, has been on 137mcg dose, repeat pending (ordered). Qualifiers: Hypothyroidism type: acquired Qualified Code(s): E03.9 - Hypothyroidism, unspecified (4) Alcoholism: Status: Chronic Assessment and plan: CIWA - benzo protocol - transferred to ICU (5) Hypertension: Status: Chronic Assessment and plan: BP high in pain right now. Labetolol given with good result. 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 She was started on prednisone at 09/[address] Garber. Will hold this for now. Erythema nodosa has resolved. There is a possible association of sarcoid with pancreatitis caused by hypercalcemia, but her calcium has been normal. (7) DVT prophylaxis: Status: Acute Assessment and plan: enoxaparin Discussed with Dr Angulo Subjective Subjective Patient reports: still having pain, vomiting and afebrile Interval history since last seen: Anxious Exam Narrative Exam Narrative: GEN: Alert and oriented, pleasant and cooperative. Moderate distress at rest. HEENT: Head atraumatic. Conjunctiva clear, no icterus. PEERL, EOMI. no rhinorrhea. MMM, OP benign. Neck is supple with no masses or lymphadenopathy, trachea midline LUNGS: CTAB with normal effort CV: RRR with no murmurs, gallops, or rubs. ABD: +BS, soft, moderate to severe epigastric tenderness with guarding on deep palpation. no HSM or other masses. EXT: no cyanosis, clubbing, or edema MSK: No joint redness or swelling. No CVAT. NEURO: CN 2-12 grossly intact. Normal movement of 4 extremities. Normal speech and coordination SKIN: No rashes or open wounds. subtly tender faint purplish nodules shins. PSYCH: normal mood and affect, normal thought process. Objective Last Vital Signs Temp 36.6 C 10/05/23 15:41 Pulse 68 10/05/23 13:21 Resp 18 10/05/23 13:21 BP 122/83 10/05/23 15:56 Pulse Ox 97 10/05/23 13:21 Laboratory Results - last 24 hr 10/04/23 10/05/23 18:00 06:20 WBC 12.96 H RBC 4.82 Hgb 13.1 Hct 40.1 MCV 83 MCH 27.2 MCHC 32.7 RDW 13.2 Plt Count 377 MPV 9.8 Immature Gran % 0.8 Neutrophils % 69.9 Lymphocytes % 21.1 Monocytes % 7.0 Eosinophils % 0.8 Basophils % 0.4 Nucleated RBC % 0.0 Absolute Neutrophils 9.06 H Absolute Lymphocytes 2.73 Absolute Monocytes 0.91 H Absolute Eosinophils 0.10 Absolute Basophils 0.05 Sodium 141 Potassium 3.3 L Chloride 101 Carbon Dioxide 29.0 Anion Gap 11.0 BUN 19 H Creatinine 1.1 H Est GFR (CKD-EPI 2020) 65.55 Glucose 120 H Calcium 9.2 Urine Opiates Screen Negative Urine Methadone Screen Positive A Ur Barbiturates Screen Negative Ur Tricyclics Screen Negative Ur Amphetamines Screen Negative U Benzodiazepines Scrn Negative Urine Cocaine Screen Negative Ur THC Screen Negative PAWSS Have you Been Recently Intoxicated or Drunk Within the Last 30 days?: No Have you Ever Experienced Previous Episodes of Alcohol Withdrawal?: No Have you ever Experienced Withdrawal Seizures?: No Have you ever Experienced Delirium Tremens(DT)s?: No Have you ever undergone Alcohol Rehabilitation Treatment (i.e, inpt ot outpatient treatment programs)?: No Have you ever Experienced Blackouts?: No Have you ever Combined Alcohol with other Downers within the last 90 days?: No Have you ever Combined Alcohol with any other Substance of Abuse during the last 90 days?: No Positive Blood Alcohol level on Presentation? [PCS.BAL]: No Evidence of Increased Autonomic Activity (i.e. HR>120, tremor, sweating, agitation, nausea)?: No Result: 0 Time Spent with Patient Time Spent with Patient: 35-49 minutes Time was spent: preparing to see the patient(eg.review tests), ordering medications,tests, procedures, referring, communicating with other health memory care program resident, indepentently interpreting results, counseling the patient and care coordination
[2023-10-05] MEDS: Enoxaparin 40 MG/0.4 ML SYR SC (22:50)
[2023-10-06] VITALS (66 sets, daily range): BP systolic 107–146; BP diastolic 70–104; PULSE 67–110; RESP 11–22; TEMP 35.8–37.8; O2SAT 94–97
[2023-10-06] MEDS: POTASSIUM CHLORIDE/D5-0.45NACL 1,000 ML 125 MEQ IV (00:15)
[2023-10-06] MEDS: HYDROmorphone 2 MG/ML SYR 1 MG IV ×6 (01:13→19:20)
[2023-10-06] MEDS: ACETAMINOPHEN 1,000 MG/100 ML BTL 400 MG IVPB ×3 (04:16→17:22)
[2023-10-06 05:52] LABS: Abs Immature Grans 0.09 10^3/uL (0.0-0.06); Absolute Basophil Count 0.03 10^3/uL (0.0-0.2); Absolute Eosinophil Count 0.14 10^3/uL (0.0-0.7); Absolute Lymphocyte Count 1.74 10^3/uL (1.2-3.4); Absolute Monocyte Count 0.92 10^3/uL (0.1-0.8); Absolute Neutrophil Count 7.81 10^3/uL (1.2-6.7); Basophils % 0.3; Eosinophils % 1.3; HCT 39.4 % (36.0-46.0); HGB 12.6 g/dL (11.2-15.7); Immature Grans % 0.8; Lymphocytes % 16.2; MCH 26.9 pg (27.0-33.0); MCV 84 fL (80-95); MPV 9.2 fL (8.0-11.0); Monocytes % 8.6; Neutrophils % 72.8; Platelet Count 302 10^3/uL (130-400); RBC 4.68 10^6/uL (3.93-5.22); RDW 13.6 % (11.7-14.6); RDW-SD 41.5 fL; WBC 10.73 10^3/uL (4.4-10.8)
[2023-10-06 06:19] LABS: ALT 18 U/L (14-59); AST 8 U/L (15-37); Albumin 3.4 g/dL (3.4-5.0); Alkaline Phosphatase 83 U/L (46-116); Anion Gap 8.4 mmol/L (3-11); BUN 10 mg/dL (7-18); Bilirubin, Total 1.1 mg/dL (0.2-1.0); CO2 27.6 mmol/L (21.0-32.0); CREATININE 0.9 mg/dL (0.55-1.02); Calcium 8.9 mg/dL (8.5-10.1); Chloride 102 mmol/L (98-107); Glucose 112 mg/dL (74-106); Magnesium 2.4 mg/dL (1.8-2.4); Potassium 4.2 mmol/L (3.5-5.1); Sodium 138 mmol/L (136-145); Total Protein 7.1 g/dL (6.4-8.2)
[2023-10-06 06:25] LABS: TSH (W/Ref FT4) 8.34 uIU/mL (0.36-3.74)
[2023-10-06 06:47] LABS: FREE T4 0.79 ng/dL (0.76-1.46)
[2023-10-06] MEDS: Methadone Liquid 10 MG/ML 130 MG PO (08:35)
--- NOTE | 2023-10-06 09:21 | PDOC.CMPRO ---
Date of service: 10/06/23 Time of Service: 09:21 Care Management Progress Note Progress Note Text Progress Note Text: S/O: Per MD, anticipate Yamilet will discharge home as soon as today, as she is reportedly doing much better, CM continues to follow. A: 38 year old female admitted to [facility] 10/04/23 for Pancreatitis P: Yamilet remains in the ICU, anticipate she will return home with no additional services and transport via private vehicle with family. CM following. SDOH(Care Management) Screening Will the Patient Participate in the Screening?: Yes Do you worry about having a steady place to live?: no In the past 12 months, have you had to go without electric, gas, oil or water in your home?: no Have you or anyone in your house had to go without enough food to eat?: no Has lack of transportation kept you from medical appointments or from doing things needed for daily living?: no Has anyone in your support network made you feel unsafe for any reason?: no
--- NOTE | 2023-10-06 13:49 | CHAPLAIN ---
I had a brief visit with Yamilet, explained my role and offered support. She asked about if there are any restrictions kids visiting patients here. I'm not aware of the rules, so I checked with her nurse, Lida, who reached out to the Supervisor Telephone Answering Service.
[2023-10-06] MEDS: Normal Saline Flush 10 ML SYR IVP ×3 (14:45→19:21)
--- NOTE | 2023-10-06 16:55 | W.PM.PROGNOT ---
Date of Service Date of service: 10/06/23 Time of Service: 16:55 Assessment and Plan Assessment and plan (1) Acute pancreatitis: Status: Acute Assessment and plan: I do not believe that she was actually in acute alcohol withdrawal after one drink. Her symptoms were relieved too quickly to be withdrawal and she is not having any withdrawal symptoms or need for ativan today. I think she was just in severe pain. She still has pain but not as severe, I would like her to try oral pain medications and wean off the iv pain meds. I will advance her diet and if she tolerates this then she can go home and follow up w/ her GI provider next week, Dr. Desai whom she says that she has a Zoom meeting on Tuesday. Qualifiers: Pancreatitis type: alcohol induced Acute pancreatitis complication: no infection or necrosis Qualified Code(s): K85.20 - Alcohol induced acute pancreatitis without necrosis or infection (2) Opioid use disorder: Status: Chronic Assessment and plan: She reports stability on methadone, continue this (try it with sips in the morning) Trial of oral opiods, but will keep iv narcotics available for severe pain. (3) Hypothyroidism: Status: Chronic Assessment and plan: TSH improving 20 > 8; with normal FT4, continue current dose of levothyroxine 137 mcg/d Qualifiers: Hypothyroidism type: acquired Qualified Code(s): E03.9 - Hypothyroidism, unspecified (4) Alcoholism: Status: Chronic Assessment and plan: not in acute alcohol withdrawal; dc [facility] protocol, transfer out of ICU (5) Hypertension: Status: Chronic Assessment and plan: BP high in pain right now. Labetolol given with good result. 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 She was started on prednisone at 09/[address] Garber. Will hold this for now. Erythema nodosa has resolved. There is a possible association of sarcoid with pancreatitis caused by hypercalcemia, but her calcium has been normal. (7) DVT prophylaxis: Status: Acute Assessment and plan: enoxaparin Discussed with Dr Angulo Subjective Subjective Interval history since last seen: No nausea or vomiting but still has abdominal pain, epigastric but taking in clear liquids. Still requesting narcotic anaglesics. Patient states that she had one whiskey sour that set her off. She insists that she was not in acute alcohol withdrawal yesterday but was in severe pain. She is not scoring on her CIWA protocol. Exam Narrative Exam Narrative: Young female who does not appear to be in any acute distress, alert and oriented, nondiaphoretic Abdomen: nondistended, soft, minimal tenderness to deep palpation, no guarding or rebound tenderness No tremors Objective Last Vital Signs Temp 35.8 C L 10/06/23 13:01 Pulse 72 10/06/23 15:01 Resp 15 10/06/23 15:01 BP 118/83 10/06/23 15:01 Pulse Ox 94 10/06/23 15:01 Laboratory Results - last 24 hr 10/06/23 05:28 WBC 10.73 RBC 4.68 Hgb 12.6 Hct 39.4 MCV 84 MCH 26.9 L MCHC 32.0 RDW 13.6 Plt Count 302 MPV 9.2 Immature Gran % 0.8 Neutrophils % 72.8 Lymphocytes % 16.2 Monocytes % 8.6 Eosinophils % 1.3 Basophils % 0.3 Nucleated RBC % 0.0 Absolute Neutrophils 7.81 H Absolute Lymphocytes 1.74 Absolute Monocytes 0.92 H Absolute Eosinophils 0.14 Absolute Basophils 0.03 Sodium 138 Potassium 4.2 Chloride 102 Carbon Dioxide 27.6 Anion Gap 8.4 BUN 10 Creatinine 0.9 Est GFR (CKD-EPI 2020) 83.40 Glucose 112 H Calcium 8.9 Magnesium 2.4 Total Bilirubin 1.1 H AST 8 L ALT 18 Alkaline Phosphatase 83 Total Protein 7.1 Albumin 3.4 TSH 8.34 H Free T4 0.79 PAWSS Have you Been Recently Intoxicated or Drunk Within the Last 30 days?: No Have you Ever Experienced Previous Episodes of Alcohol Withdrawal?: No Have you ever Experienced Withdrawal Seizures?: No Have you ever Experienced Delirium Tremens(DT)s?: No Have you ever undergone Alcohol Rehabilitation Treatment (i.e, inpt ot outpatient treatment programs)?: No Have you ever Experienced Blackouts?: No Have you ever Combined Alcohol with other Downers within the last 90 days?: No Have you ever Combined Alcohol with any other Substance of Abuse during the last 90 days?: No Positive Blood Alcohol level on Presentation? [PCS.BAL]: No Evidence of Increased Autonomic Activity (i.e. HR>120, tremor, sweating, agitation, nausea)?: No Result: 0 Time Spent with Patient Time Spent with Patient: 25-34 minutes Time was spent: preparing to see the patient(eg.review tests), ordering medications,tests, procedures, referring, communicating with other health career representative, indepentently interpreting results, counseling the patient and care coordination
[2023-10-06] MEDS: Enoxaparin 40 MG/0.4 ML SYR SC (22:21)
[2023-10-07] VITALS (11 sets, daily range): BP systolic 117–137; BP diastolic 79–93; PULSE 57–81; RESP 12–16; TEMP 36.5–36.9; O2SAT 92–100
[2023-10-07] MEDS: ACETAMINOPHEN 1,000 MG/100 ML BTL 400 MG IVPB ×4 (00:45→19:00)
[2023-10-07] MEDS: Methadone Liquid 10 MG/ML 130 MG PO (07:59)
--- NOTE | 2023-10-07 09:58 | PGE_ITS ---
Date of Service Date of service: 10/07/23 Time of Service: 09:58 Assessment and Plan Assessment and plan (1) Acute pancreatitis: Status: Acute Assessment and plan: improving, now tolerating solids, will watch her through lunchtime and if not having any increased pain then I will discharge her this afternoon. I will add protonix for protection against PUD. For her constipation, I have ordred Miralax, senna and Relistor. Qualifiers: Pancreatitis type: alcohol induced Acute pancreatitis complication: no infection or necrosis Qualified Code(s): K85.20 - Alcohol induced acute pancreatitis without necrosis or infection (2) Opioid use disorder: Status: Chronic Assessment and plan: continue methadone, dc iv dilaudid, she can use oral oxycodone prn pain but preferable just stick to APAP (3) Hypothyroidism: Status: Chronic Assessment and plan: TSH improving 20 > 8; with normal FT4, continue current dose of levothyroxine 137 mcg/d Qualifiers: Hypothyroidism type: acquired Qualified Code(s): E03.9 - Hypothyroidism, unspecified (4) Alcoholism: Status: Chronic Assessment and plan: not in acute alcohol withdrawal; dc CIWA protocol, transfer out of ICU patient now med/surg status as of (5) Hypertension: Status: Chronic Assessment and plan: BP was very high on admission related to her pain level and not d/t alcohol withdrawal. she usually takes chlorthalidone for her HTN. I will resume this upon discharge. 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 She was started on prednisone at 09/[address] Garber. Will hold this for now. Erythema nodosa has resolved. There is a possible association of sarcoid with pancreatitis caused by hyper calcemia, but her calcium has been normal. (7) DVT prophylaxis: Status: Acute Assessment and plan: enoxaparin Subjective Subjective Interval history since last seen: Patient states that she feels better although still some diffuse abdominal discomort, no nausea or vomiting. She is constipated now. She did tolerate regular foods this morning (low fat diet). Exam Narrative Exam Narrative: Young female alert and oriented, does not appear to be uncomforatable Abdomen: soft, normal bowel sounds, nondistended, no guarding or rebound tenderness but still some tenderness in the epigastrium and LUQ w/ deep palpation Objective Last Vital Signs Temp 36.5 C 10/07/23 02:34 Pulse 81 10/07/23 07:40 Resp 16 10/07/23 02:34 BP 137/93 H 10/07/23 07:40 Pulse Ox 95 10/07/23 02:34 PAWSS Have you Been Recently Intoxicated or Drunk Within the Last 30 days?: No Have you Ever Experienced Previous Episodes of Alcohol Withdrawal?: No Have you ever Experienced Withdrawal Seizures?: No Have you ever Experienced Delirium Tremens(DT)s?: No Have you ever undergone Alcohol Rehabilitation Treatment (i.e, inpt ot outpatient treatment programs)?: No Have you ever Experienced Blackouts?: No Have you ever Combined Alcohol with other Downers within the last 90 days?: No Have you ever Combined Alcohol with any other Substance of Abuse during the last 90 days?: No Positive Blood Alcohol level on Presentation? [PCS.BAL]: No Evidence of Increased Autonomic Activity (i.e. HR>120, tremor, sweating, agitation, nausea)?: No Result: 0 Time Spent with Patient Time Spent with Patient: 25-34 minutes Time was spent: preparing to see the patient(eg.review tests), ordering medications,tests, procedures, referring, communicating with other health tree care foreman (nursing staff), indepentently interpreting results, counseling t he patient and care coordination
[2023-10-07] MEDS: Senna TAB 1 TAB PO (10:09)
[2023-10-07] MEDS: Bisacodyl 5 MG TABEC 15 MG PO (10:09)
[2023-10-07] MEDS: Polyethylene Glycol 3350 17 GM PACKET PO (10:10)
[2023-10-07] MEDS: Methylnaltrexone 12 MG/0.6 ML VIAL SC (10:10)
[2023-10-07] MEDS: Pantoprazole 40 MG TABCR PO (10:10)
[2023-10-07] MEDS: Prochlorperazine 10 MG/2 ML VIAL IVP (12:57)
--- NOTE | 2023-10-07 13:12 | PDOC.CMDIS ---
Date of service: 10/07/23 Time of Service: 13:12 LACE Index Scoring Tool Questions: Length of Stay (in days): 2 Was the patient admitted via the E.D.?: Yes Comorbidities: Liver or Renal Disease E.D. Visits: 4 Answers: Total Score: 14 Risk of Readmission: High Risk Care Management Discharge Plan Reason for Hospitalization: Pancreatitis Discharge Plan: Yamilet will return home with no additional services and transport via private vehicle with family. She will follow up with her GI provider; Dr. Desai on 10/10/23, her PCP and plan of care as prescribed. Patient/Family Education Needs: Review discharge instructions, Ask Me Three. SDOH Health Related Social Needs: No Data to Display
[2023-10-07] MEDS: HYDROmorphone 2 MG/ML SYR 1 MG IVP (13:18)
[2023-10-07] MEDS: Normal Saline Flush 10 ML SYR IVP (13:21)
[2023-10-07] MEDS: Lactated Ringers 1,000 ML 150 ML IV ×2 (15:37→23:05)
--- NOTE | 2023-10-07 16:48 | PDOC.CMPRO ---
Date of service: 10/07/23 Time of Service: 16:48 Care Management Progress Note Progress Note Text Progress Note Text: S/O: Yamilet could not tolerate diet advancements per MD: She became nauseated and had increased abdominal pain after eating lunch. We will back off her feedings to clear liquids and resume IV fluids and analgesics and antiemetics. Patient needs continued hospitalization at this point due to unresolved pancreatitis. A: 38 year old female admitted to [facility] 10/04/23 for Pancreatitis P: Yamilet remains in the ICU, anticipate she will return home with no additional services and transport via private vehicle with family. CM following. SDOH(Care Management) Screening Will the Patient Participate in the Screening?: Yes Do you worry about having a steady place to live?: no In the past 12 months, have you had to go without electric, gas, oil or water in your home?: no Have you or anyone in your house had to go without enough food to eat?: no Has lack of transportation kept you from medical appointments or from doing things needed for daily living?: no Has anyone in your support network made you feel unsafe for any reason?: no
[2023-10-07] MEDS: Enoxaparin 40 MG/0.4 ML SYR SC (21:49)
[2023-10-08] MEDS: ACETAMINOPHEN 1,000 MG/100 ML BTL 400 MG IVPB ×2 (00:41→05:42)
[2023-10-08 01:00] VITALS: BP 148/89; PULSE 55; RESP 18; TEMP 36.4; O2SAT 100
[2023-10-08 06:28] LABS: Abs Immature Grans 0.03 10^3/uL (0.0-0.06); Absolute Basophil Count 0.03 10^3/uL (0.0-0.2); Absolute Eosinophil Count 0.25 10^3/uL (0.0-0.7); Absolute Monocyte Count 0.37 10^3/uL (0.1-0.8); Absolute Neutrophil Count 3.42 10^3/uL (1.2-6.7); Basophils % 0.5; Eosinophils % 4.2; HCT 33.9 % (36.0-46.0); HGB 11.1 g/dL (11.2-15.7); Immature Grans % 0.5; Lymphocytes % 31.7; MCH 27.3 pg (27.0-33.0); MCHC 32.7 % (32.0-36.0); MCV 84 fL (80-95); MPV 9.6 fL (8.0-11.0); Monocytes % 6.2; Neutrophils % 56.9; Platelet Count 274 10^3/uL (130-400); RBC 4.06 10^6/uL (3.93-5.22); RDW 13.2 % (11.7-14.6); RDW-SD 40.1 fL
[2023-10-08 06:43] LABS: ALT 16 U/L (14-59); AST 12 U/L (15-37); Albumin 2.8 g/dL (3.4-5.0); Alkaline Phosphatase 69 U/L (46-116); Anion Gap 6.6 mmol/L (3-11); BUN 12 mg/dL (7-18); Bilirubin, Total 0.5 mg/dL (0.2-1.0); CO2 28.4 mmol/L (21.0-32.0); CREATININE 0.9 mg/dL (0.55-1.02); Calcium 8.8 mg/dL (8.5-10.1); Chloride 103 mmol/L (98-107); Glucose 89 mg/dL (74-106); Lipase 39 U/L (16-77); Potassium 3.7 mmol/L (3.5-5.1); Sodium 138 mmol/L (136-145); Total Protein 6.4 g/dL (6.4-8.2)
[2023-10-08 07:41] VITALS: BP 134/88; PULSE 63; RESP 16; TEMP 36.5; O2SAT 97
[2023-10-08] MEDS: Methadone Liquid 10 MG/ML 130 MG PO (08:31)
[2023-10-08] MEDS: Pantoprazole 40 MG TABCR PO (08:31)
--- NOTE | 2023-10-08 13:00 | W.PM.DS.N ---
Date of service: 10/08/23 Time of Service: 13:01 DS: Diagnosis Discharge Diagnosis (1) Acute pancreatitis: Status: Acute (2) Opioid use disorder: Status: Chronic (3) Hypothyroidism: Status: Chronic (4) Alcoholism: Status: Chronic (5) Hypertension: Status: Chronic (6) Gilberto's syndrome: Status: Acute (7) DVT prophylaxis: Status: Acute Discharge Plan Disposition Patient Disposition: Home Condition: Improving Discharge Details Reason For Visit: Pancreatitis Admit Date/Time: 10/04/23 20:51 Admit Provider: Dino Guzman Attending Provider: Dino Guzman Primary Care Provider: [facility] Hospital Course: This is a 38 yo female patient with past medical history significant for but not limited to alcohol use disorder in remission and recurrent alcoholic pancreatitis who presented to the [facility] ED on 10/04/23 for evaluation of severe epigastric abdominal pain typical of her previous episodes of her pancreatitis. Patient stated she was admitted in December, April, and June for pancreatitis at [facility]. She had a history of pancreatic pseudocyst that was drained and resolved. She stopped drinking alcohol completely in April 2023, where previously she was drinking 1/2 of a fifth of liquor a day. 2 days prior to admission she was eating out and had a fatty meal and consumed a single whiskey sour drink, which was her first alcoholic beverage since April. About 2 hours later, she started to experience a constant achey 2-3/10 epigastric pain. This was not debilitating. She was still able to eat and have regular bowel movements. She did not have associated nausea or vomiting or any stool changes. She went to work on the day of admission, and soon after work she started having more severe epigastric twisting pain that radiated to her mid back and a band across her upper abdomen. She had some mild nausea with the severe pain. The pain was as bad as it ever had been with her pancreatitis, so she came into the ED. Of note, she was recently diagnosed with eythema nodosum and sarcoidosis (Gliberto's Syndrome) and started on prednisone a few weeks ago. She was also started on chlorthaidone for blood pressure and swelling in her legs. She denied an recent abdominal trauma. Patient was admitted to the medical floor and was given IVF and gut rest. she had an elevated lipase and CT findings of pancreatitis. Patient was put on CIWA scoring and did score positive numbers and was started on lorazepam protocol. Patient's pain was controlled with hydromorphone. Her pain decreased and her lipase came down, and she was no longer withdrawing. She was able to eat today with out vomiting or pain. She was discharged to home ambulatory, improved. Home Meds and New Rx's Prescriptions: New pantoprazole 40 mg Tablet,Delayed Release (Dr/Ec) 40 mg PO DAILY@0730 Qty: 30 0RF ondansetron 4 mg tablet,disintegrating 4 mg PO Q6H PRNQty: 20 0RF Continued methadone 10 mg/5 mL solution 130 mg PO DAILY levothyroxine 137 mcg capsule 137 mcg PO DAILY Qty: 90 3RF chlorthalidone 25 mg tablet 25 mg PO DAILY Qty: 90 3RF prednisone 10 mg tablet 10 mg PO DIRECTED Qty: 41 0RF Rx Instructions: take 4 tabs for 5 days, 3 tabs for 4 days, 2 tabs for 3 days, 1 tab for 3 days epinephrine 0.3 mg/0.3 mL auto-injector 0.3 mg IM ONCE Qty: 1 2RF Rx Instructions: as a single dose; may repeat once Discharge Instructions Instructions: Ondansetron (By mouth), Pancreatitis (DC), Alcohol Dependence (DC) Additional Instructions: Recommend not drinking alcohol. Stand Alone Forms: Nursing Discharge Form Referrals: Cherise Chambers NP [Primary Care Provider] - (Please call Tuesday to make a follow up appointment for 1-2 weeks. ) Activity:: Activity as Tolerated Equipment/Supplies:: No Equipment Needed Diet:: advance as tolerated Discharge Orders Discharge Orders: Discharge Order (Routine); Ordered 10/08/23 Ordered By: Akua Hardy Discharge Data Discharge Date/Time-TO BE ENTERED AT DEPARTURE: 10/08/23 14:26 DS: Summary Time Spent with Patient providing and/or coordinating discharge services: Less than 30 minutes Status at Discharge Functional status at discharge: independent ambulation Overall status at discharge: patient is back to baseline Mental Status: mental status grossly normal Speech and Movement: speech and movement normal Mood: congruent mood Affect: normal affect Quality:SDOH Health Related Social Needs: No Data to Display Exam Narrative Exam Narrative: GEN: Alert and oriented, pleasant and cooperative. Moderate distress at rest. HEENT: Head atraumatic. Conjunctiva clear, no icterus. PEERL, EOMI. no rhinorrhea. MMM, OP benign. Neck is supple with no masses or lymphadenopathy, trachea midline LUNGS: CTAB with normal effort CV: RRR with no murmurs, gallops, or rubs. ABD: +BS, soft, minor epigastric tenderness with guarding on deep palpation. no HSM or other masses. EXT: No cyanosis, clubbing, or edema MSK: No joint redness or swelling. No CVAT. NEURO: CN 2-12 grossly intact. Normal movement of 4 extremities. Normal speech and coordination SKIN: No rashes or open wounds. subtly tender faint purplish nodules shins. PSYCH: Normal mood and affect, normal thought process. Psych Mental Status: mental status grossly normal Speech and Movement: speech and movement normal Mood: congruent mood Affect: normal affect DS: Data Vitals/I&O Vitals and I&O: Vital Signs Temperature 36.5 C 10/08/23 07:41 Temperature Source Tympanic 10/08/23 07:41 Pulse 63 10/08/23 07:41 Pulse Rhythm Regular 10/08/23 09:39 Pulse 64 10/07/23 20:36 Respiratory Rate 16 10/08/23 07:41 Respiratory Effort Normal 10/08/23 09:39 Respiratory Depth Normal 10/08/23 09:39 Respiratory Pattern Normal 10/08/23 09:39 Blood Pressure 134/88 10/08/23 07:41 Blood Pressure Mean 91 10/07/23 20:36 Blood Pressure Position Sitting 10/06/23 15:30 Pulse Oximetry 97 10/08/23 07:41 Oxygen Delivery Method Room Air 10/08/23 07:41 Oxygen Flow Rate 0 10/08/23 07:41 Pain Level 0 10/08/23 01:00 Comment ra 10/07/23 20:36 Intake & Output 10/07/23 10/08/23 10/08/23 23:59 11:59 23:59 Intake Total 1890 / 2350 1060 / 1060 Output Total 1200 / 1200 Balance 1890 / 1500 -140 / -140 Weight 89.6 kg Intake: IV 1240 / 1440 1060 / 1060 Oral 650 / 910 Output: Urine 1200 / 1200 Other: Urine Color Yellow Urine Appearance Clear Clear Comment Pt voided an unmeasured amount into toilet. per pt voided x1 Stool Size Small Stool Characteristics Soft Brown Voiding Methods Toilet Toilet Data Completed and Pending Labs on day of discharge: Labs from last 24 hours 10/08/23 06:15 WBC 6.00 RBC 4.06 Hgb 11.1 L Hct 33.9 L MCV 84 MCH 27.3 MCHC 32.7 RDW 13.2 Plt Count 274 MPV 9.6 Immature Gran % 0.5 Neutrophils % 56.9 Lymphocytes % 31.7 Monocytes % 6.2 Eosinophils % 4.2 Basophils % 0.5 Nucleated RBC % 0.0 Absolute Neutrophils 3.42 Absolute Lymphocytes 1.90 Absolute Monocytes 0.37 Absolute Eosinophils 0.25 Absolute Basophils 0.03 Sodium 138 Potassium 3.7 Chloride 103 Carbon Dioxide 28.4 Anion Gap 6.6 BUN 12 Creatinine 0.9 Est GFR (CKD-EPI 2020) 83.40 Glucose 89 Calcium 8.8 Total Bilirubin 0.5 AST 12 L ALT 16 Alkaline Phosphatase 69 Total Protein 6.4 Albumin 2.8 L Lipase 39 PFSH All Active Problems (Updated 10/06/23 @ 17:17 by Bossman Angulo MD) DVT prophylaxis (Acute) Acute pancreatitis (Acute) Gilberto's syndrome (Acute) Abnormal computerized axial tomography of chest (Acute) Abscess of pancreas (Acute) Opiate addiction (Chronic) Pseudocyst of pancreas (Chronic) Alcoholism (Chronic) GERD (gastroesophageal reflux disease) (Chronic) Fatty liver disease, nonalcoholic (Chronic) Hypertension (Chronic) CKD (chronic kidney disease) stage 3, GFR 30-59 ml/min (Chronic) Opioid use disorder (Chronic) Methadone through [facility] Hypothyroidism (Chronic) Generalized anxiety disorder (Chronic) Medical History (Updated 10/06/23 @ 17:17 by Bossman Angulo MD) Major depressive disorder Temporomandibular joint disorder Surgical History (Updated 10/04/23 @ 23:03 by Dino Guzman) History of removal of pancreatic stent History of section (05/28/14) Family History (Updated 09/26/23 @ 14:38 by Jeri Solorio) Mother Alcohol abuse Depression Father Alcohol abuse Substance abuse Sister Depression Sister Substance abuse Depression Son No problems noted. Son No problems noted. Maternal Grandfather Colon cancer Skin cancer (melanoma) Type 2 diabetes mellitus Heart disease Maternal Grandmother Heart disease SLE (systemic lupus erythematosus) Osteoporosis Paternal Grandfather No problems noted. Paternal Grandmother No problems noted. 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 Pets and animals: Yes Pets and animals: cat(s), dog(s), hamster(s) and farm animals Sexually active: Yes Do you think of yourself as: straight/heterosexual Current gender identity: female What is your relationship status?: living with partner How often do you talk on the phone with friends or family?: three or more times per week How often do you get together with friends or relatives?: once per week How often do you attend oriental orthodox or yarsanism services?: 1-3 times per year Do you belong to any clubs or organized social groups?: no Panel score (0-1 are the most socially isolated patients): 2 What type of physical activity do you participate in: none Duration: 15-30 minutes/day Frequency: 5-6 times per week Eloisa/Roman Catholic: Orthodox Special eloisa needs: No Seatbelt use: always Do you feel safe at home: Yes Do you feel safe in your relationship?: Yes Additional Social history: Lives in [place] with 9 yo twin boys Female Reproductive History Menstrual control method: natural family planning History History 1 Para Hx # Term Pregnancies Multiple births 1 Hx # Pregnancies Ectopic pregnancies AB induced Hx Number of Living Children 2 AB spontaneous Time Spent with Patient Time Spent with Patient: 45-69 minutes Time was spent: preparing to see the patient(eg.review tests), ordering medications,tests, procedures, referring, communicating with other health customer care specialist, indepentently interpreting results, counseling the patient and care coordination
--- NOTE | 2023-10-08 14:17 | PDOC.CMDIS ---
Date of service: 10/08/23 Time of Service: 14:17 LACE Index Scoring Tool Questions: Length of Stay (in days): 4 - 6 Was the patient admitted via the E.D.?: Yes Comorbidities: Liver or Renal Disease E.D. Visits: 3 Answers: Total Score: 15 Risk of Readmission: High Risk Care Management Discharge Plan Reason for Hospitalization: Pancreatitis Discharge Plan: Yamilet will return home today with no new services. RAYO provided a last dose letter to [facility], at the provider's request. She will be driven home via private vehicle by family. She will follow up with her PCP and discharge plan of care. Patient/Family Education Needs: Review discharge instructions and limitations, discussion of self care needs including ask me three. SDOH Health Related Social Needs: No Data to Display
== END 2023-10-08 14:26 | disposition home or self-care (01) | DRG 439 ==
LOC: ER 20:55 → MS 21:51 → ICU 10-05 15:10 → MS 10-08 01:08
PROVIDERS: Internal Medicine; Nurse Practitioner Family; Admitting Provider Family Medicine; Emergency Provider Nurse Practitioner Family; PCP Nurse Practitioner Family; Visit Provider Family Medicine
DX: K85.20 Alcohol induced acute pancreatitis without necrosis or infection (principal); F10.239 Alcohol dependence with withdrawal, unspecified; F11.20 Opioid dependence, uncomplicated; E03.9 Hypothyroidism, unspecified; D86.2 Sarcoidosis of lung with sarcoidosis of lymph nodes; Z79.52 Long term (current) use of systemic steroids; K21.9 Gastro-esophageal reflux disease without esophagitis; K75.81 Nonalcoholic steatohepatitis (NASH); N18.30 Chronic kidney disease, stage 3 unspecified; F41.1 Generalized anxiety disorder; I12.9 Hypertensive chronic kidney disease with stage 1 through stage 4 chronic kidney disease, or unspecified chronic kidney disease; F32.9 Major depressive disorder, single episode, unspecified; L52 Erythema nodosum
CPT/HCPCS: 00123; 36415; 80048; 80053; 80307; 81025; 83690; 96361; 96374; 96375; 96376; 99285; J1650; 74177; 81003; 83735; 84439; 84443; 85025; 99232; 99239; J0131; J0780; J1170; J1885; J1920; J2060; J2212; J2405; J3480; J3490

== ENCOUNTER 2023-10-14 02:08 | Outpatient (CLI) | payer MEDICAID, SELFPAY ==
[2023-10-14] MEDS: Levalbuterol HFA 15 GM INH 4 PUFF IH (08:57)
[2023-10-14] MEDS: Inhaler, Assist Device 1 EACH MC (08:58)
--- NOTE | 2023-10-14 12:45 | W.PFT ---
Date of service: 10/14/23 Time of Service: 08:02 Pulmonary Function Test Result Indications: Gilberto's Syndrome Interpretation Spirometry: No airflow limitation. No bronchodilator response. Lung Volumes: Normal lung volumes Diffusion Capacity: Normal diffusion Airway Pressure: Normal airways resistance Impression Normal pulmonary function testing Clinical Correlation therefore is recommended.
== END 2023-10-14 02:09 | disposition home or self-care (01) ==
LOC: RT 02:08
PROVIDERS: PCP Nurse Practitioner Family; Visit Provider Student in an Organized Health Care Education/Training Program
DX: D86.2 Sarcoidosis of lung with sarcoidosis of lymph nodes (principal)
CPT/HCPCS: 94060; 94726; 94729

== ENCOUNTER 2023-10-17 08:20 | Outpatient (CLI) | payer MEDICAID, SELFPAY ==
[2023-10-17 12:33] LABS: Abs Immature Grans 0.02 10^3/uL (0.0-0.06); Absolute Basophil Count 0.05 10^3/uL (0.0-0.2); Absolute Eosinophil Count 0.32 10^3/uL (0.0-0.7); Absolute Lymphocyte Count 1.96 10^3/uL (1.2-3.4); Absolute Monocyte Count 0.57 10^3/uL (0.1-0.8); Absolute Neutrophil Count 5.15 10^3/uL (1.2-6.7); Basophils % 0.6; HCT 40.4 % (36.0-46.0); HGB 13.3 g/dL (11.2-15.7); Immature Grans % 0.2; Lymphocytes % 24.3; MCH 27.1 pg (27.0-33.0); MCHC 32.9 % (32.0-36.0); MCV 82 fL (80-95); MPV 9.8 fL (8.0-11.0); Monocytes % 7.1; Neutrophils % 63.8; Platelet Count 354 10^3/uL (130-400); RBC 4.91 10^6/uL (3.93-5.22); RDW 13.7 % (11.7-14.6); RDW-SD 40.2 fL; WBC 8.07 10^3/uL (4.4-10.8)
[2023-10-17 13:49] LABS: Iron 55 ug/dL (50-170); Total Iron Binding Capacity 394 ug/dL (250-450); Transferrin Sat 14 % (15-50)
[2023-10-17 13:55] LABS: ALT 32 U/L (14-59); AST 24 U/L (15-37); Alkaline Phosphatase 99 U/L (46-116); Anion Gap 12.7 mmol/L (3-11); BUN 13 mg/dL (7-18); Bilirubin, Direct 0.1 mg/dL (0.0-0.2); Bilirubin, Total 0.6 mg/dL (0.2-1.0); CO2 26.3 mmol/L (21.0-32.0); CREATININE 1.2 mg/dL (0.55-1.02); Calcium 9.6 mg/dL (8.5-10.1); Chloride 100 mmol/L (98-107); Estimated GFR 59.05 (mL/min/1.73m2); Glucose 124 mg/dL (74-106); Potassium 3.4 mmol/L (3.5-5.1); Sodium 139 mmol/L (136-145); Total Protein 8.4 g/dL (6.4-8.2)
[2023-10-17 14:13] LABS: Vitamin D 25 Total 7.2 ng/mL (30-100)
[2023-10-17 14:20] LABS: Ferritin 47 ng/mL (8-252)
[2023-10-17 19:23] LABS: HBs Antibody, Quant 44.2 mIU/mL (See Note); Hepatitis B Surface Ab Positive (See Note)
[2023-10-17 20:02] LABS: Hep B Core Antibody Negative (Negative); Hepatitis B Surface Ag Negative (Negative); Hepatitis C Ab w Rflx HCV PCR Negative (Negative)
[2023-10-17 20:05] LABS: Hep A Total Ab w Rflx IgM Negative (Negative)
[2023-10-18 15:07] LABS: Tissue Transglutaminase IgA 59.5 CU (<20.0)
[2023-10-18 15:44] LABS: ANA Interpretation Negative (Negative)
[2023-10-18 16:13] LABS: Leukemia/Lymphoma by FC (Blood (See below)
[2023-10-18 16:17] LABS: IgA 152 mg/dL (85-499); IgG 1215 mg/dL (610-1616); IgM 87 mg/dL (35-242)
[2023-10-18 20:25] LABS: Mitochondrial Ab, M2 <0.1 U
[2023-10-19 09:16] LABS: Ceruloplasmin 36.7 mg/dL
[2023-10-19 12:11] LABS: Smooth Muscle Ab Screen Negative (Negative)
[2023-10-19 14:34] LABS: ALT 31 U/L (7-45); ActiTest Grade A0; ActiTest Interpretation no activity; ActiTest Score 0.12; Alpha-2-Macroglobulin 193 mg/dL (100 - 280); Apoliprotein A1 128 mg/dL (>=140); Bilirubin, Total 0.6 mg/dL (0.0 - 1.2); FibroTest Interpretation no fibrosis; FibroTest Score 0.13; FibroTest Stage F0; GGT 24 U/L (5 - 36); Haptoglobin 209 mg/dL (30 - 200)
[2023-10-19 16:37] LABS: Liver/Kidney Microsome Type 1 <5.0 U
[2023-10-19 17:40] LABS: Free Retinol (Vitamin A) 64.4 mcg/dL (32.5-78.0)
== END 2023-10-17 08:21 ==
LOC: LBO 10-18 08:20
PROVIDERS: Student in an Organized Health Care Education/Training Program; PCP Nurse Practitioner Family; Visit Provider Internal Medicine Gastroenterology
DX: D86.9 Sarcoidosis, unspecified (principal); R93.89 Abnormal findings on diagnostic imaging of other specified body structures
CPT/HCPCS: 36415; 80048; 80076; 81596; 82306; 82390; 82784; 83516; 86704; 86706; 86709; 86803; 87340; 88185; 82728; 83540; 83550; 84590; 85025; 86038; 86255; 88184; 88189

== ENCOUNTER → 2023-12-16 00:06 | Outpatient (CLI) | payer MEDICAID, SELFPAY ==
--- NOTE | 2023-12-16 08:13 | DI.CT_ITS ---
Exam(s) CT CHEST WO EXAM: CT CHEST WO CLINICAL HISTORY: assess chest LAD,infiltrates,lofgrens syndrome,abnl ct of chest,d86.9, TECHNIQUE: Imaging Protocol: Axial computed tomography images with coronal and sagittal reformatted images were created and reviewed CONTRAST MATERIAL: Intravenous: Omnipaque 350 Contrast volume:structured data ml. COMPARISON: CT CT THORAX ABD/PEL CTA from 01/04/[address] CHEST WO from 09/02/2023 FINDINGS: Pulmonary parenchyma: Resolution of patchy peripheral infiltrates. No consolidation. No dominant me asurable mass. Tracheobronchial tree: No bronchiectasis or mucous plugging. Mediastinum and Mckenzie: Significant decrease in size of previously noted abnormally enlarged lymph node s. The AP window node measures 5 millimeters in short axis compared to 15 on the prior exam. Right paratracheal nodes measure on the order of 5 millimeters diameter. No visible hilar adenopathy. Sma ll amount of residual thymic tissue noted. Pleura: No effusion. No pneumothorax. Heart: The heart is not dilated. No coronary artery calcifications are seen. Aorta: Thoracic aorta non-dilated. Mild atherosclerotic changes. Upper abdomen: No acute findings.. Bones: For age. Soft tissues: The nodule in the right axilla is not included in the field of view of today's exam. IMPRESSION: Resolution of previously noted adenopathy and bilateral peripheral infiltrates. RADIATION DOSE DELIVERED: 563.56mGy.cm Total DLP DATA REPOSITORY: All CT scans at this facility are submitted to the National Radiology Data Registry (NRDR) Dose Index Registry (DIR) with the [employer] (A[employer]). RADIATION OPTIMIZATION: All CT scans at this facility use at least one of these dose optimization te chniques: automated exposure control; mA and/or kV adjustment per patient size (includes targeted exa ms where dose is matched to clinical indication); or iterative reconstruction.
== END ==
PROVIDERS: PCP Nurse Practitioner Family; Visit Provider Student in an Organized Health Care Education/Training Program
DX: D86.0 Sarcoidosis of lung
CPT/HCPCS: 71250

== ENCOUNTER 2023-12-30 15:15 | Outpatient (CLI) | payer MEDICAID, SELFPAY ==
[2023-12-30 10:23] LABS: Hemoglobin A1C 5.8 % (<5.7)
[2023-12-30 10:45] LABS: Anion Gap 2.9 mmol/L (3-11); BUN 18 mg/dL (7-18); CO2 30.1 mmol/L (21.0-32.0); Calcium 9.2 mg/dL (8.5-10.1); Chloride 104 mmol/L (98-107); Estimated GFR 73.49 (mL/min/1.73m2); Glucose 119 mg/dL (74-106); Potassium 3.2 mmol/L (3.5-5.1); Sodium 137 mmol/L (136-145); TSH (W/Ref FT4) 0.72 uIU/mL (0.36-3.74)
== END 2023-12-30 15:16 | disposition home or self-care (01) ==
LOC: LBO 15:16
PROVIDERS: PCP Nurse Practitioner Family; Visit Provider Nurse Practitioner Family
DX: K21.9 Gastro-esophageal reflux disease without esophagitis; K76.0 Fatty (change of) liver, not elsewhere classified; K86.3 Pseudocyst of pancreas; I10 Essential (primary) hypertension; E03.9 Hypothyroidism, unspecified
CPT/HCPCS: 36415; 80048; 83036; 84443

== ENCOUNTER 2025-03-15 19:53 | Emergency (ER) | payer MEDICAID, SELFPAY ==
[2025-03-15 20:07] VITALS: BP 180/107; PULSE 91; RESP 26; TEMP 36.1; O2SAT 100
[2025-03-15 20:27] VITALS: BP 180/107; PULSE 91; RESP 26; TEMP 36.1; O2SAT 100
--- NOTE | 2025-03-15 20:30 | RT.EKG_ITS ---
APPROVED REPORT Exam: Resting ECG Reason for Exam: bonny QTc Patient Location: E HR:69 bpm ECG Measurements Heart Rate 69 AXIS TN 166 P 26 QRSd 88 QRS 10 QT 427 T 0 QTc 457 Conclusion Sinus rhythm...normal P axis, V-rate 60- [address] segment or T wave abnormalities to suggest occlusive [place]
[2025-03-15 20:52] LABS: Abs Immature Grans 0.04 10^3/uL (0.0-0.06); HCT 42.3 % (36.0-46.0); HGB 14.3 g/dL (11.2-15.7); Immature Grans % 0.5 %; MCH 30.2 pg (27.0-33.0); MCHC 33.8 % (32.0-36.0); MCV 89 fL (80-95); MPV 9.8 fL (8.0-11.0); Platelet Count 280 10^3/uL (130-400); RBC 4.73 10^6/uL (3.93-5.22); RDW 11.9 % (11.7-14.6); RDW-SD 38.9 fL; WBC 8.27 10^3/uL (4.4-10.8)
[2025-03-15] MEDS: Ondansetron 4 MG/2 ML VIAL IVP (20:59)
[2025-03-15] MEDS: Normal Saline 1,000 ML 1000 ML IV (20:59)
[2025-03-15] MEDS: Ketorolac 15 MG/ML VIAL IVP (20:59)
[2025-03-15 21:07] LABS: ALT 119 U/L (14-59); AST 238 U/L (15-37); Albumin 4.8 g/dL (3.4-5.0); Alkaline Phosphatase 132 U/L (46-116); Anion Gap 9.4 mmol/L (3-11); BUN 23 mg/dL (7-18); Bilirubin, Total 0.6 mg/dL (0.2-1.0); CO2 28.6 mmol/L (21.0-32.0); Calcium 10.0 mg/dL (8.5-10.1); Chloride 102 mmol/L (98-107); Estimated GFR 58.32 (mL/min/1.73m2); Glucose 121 mg/dL (74-106); Lipase 25 U/L (<78); Magnesium 2.3 mg/dL (1.8-2.4); Potassium 3.8 mmol/L (3.5-5.1); Sodium 140 mmol/L (136-145); Total Protein 8.6 g/dL (6.4-8.2)
[2025-03-15 21:08] LABS: Glucose Negative (Negative)
--- NOTE | 2025-03-15 21:08 | ED.GENADUL_ITS ---
Discharge Plan Disposition Patient Disposition: Home Discharge Details Clinical Impression: Gastritis, Constipation, Elevated LFTs Primary Care Provider: Cherise Chambers ED Provider: Harriet Perez Home Meds and New Rx's Prescriptions: No Action methadone 10 mg/5 mL solution 170 mg PO DAILY pantoprazole 40 mg tablet,delayed release (DR/EC) See Rx Instructions .ROUTE .COMPLEX PRN Dose Instruction: TAKE 1 TABLET BY MOUTH DAILY AT 7:30 AM Rx Instructions: TAKE 1 TABLET BY MOUTH DAILY AT 7:30 AM PRN; multivitamin Tablet 1 tab PO DAILY fish oil-dha-epa See Rx Instructions PO DIRECTED Rx Instructions: orally as directed; sertraline 25 mg tablet 25 mg PO DAILY Qty: 90 3RF epinephrine 0.3 mg/0.3 mL auto-injector 0.3 mg IM ONCE Qty: 1 2RF Rx Instructions: as a single dose; may repeat once levothyroxine 137 mcg tablet 137 mcg PO DAILY Qty: 90 3RF Discharge Instructions Additional Instructions: Please call your primary care provider first thing Tuesday to schedule follow-up appointment to discuss your elevated LFTs and ovarian cyst Your symptoms are most likely due to gastritis/inflammation of the stomach. This may be possibly viral related. CT scan was reassuring, there was a significant amount of constipation noted. I recommend that you use MiraLAX 1 capful in 8 ounces of fluid 1-2 times daily until you have regular soft stools. Are also incidental findings of small airway disease, consistent with your known lung disease, as well as collapsed cysts in the left ovary with some free fluid in the abdomen that is likely attributed to this. I would recommend talking to your primary care provider about potential referral to women's wellness. Your liver function test were elevated. A hepatitis panel has been sent out, results to be available next couple of days. I recommend talking with your primary care provider about potential causes for this and rechecking of your blood work. Stay well-hydrated, drinking plenty of fluid throughout the day. Return to emergency care if develop new severe abdominal pain, controllable vomiting, blood in your stool/urine/vomit, new fevers associate with belly pain, or if you are very worried and need to be rechecked again immediately Referrals: Cherise Chambers NP [Primary Care Provider, Medicine] HPI General Date/Time Provider Initiated Documentation: 03/15/25 19:59 . HPI Narrative: Yamilet is a 40-year-old female presents to the emergency department for evaluation of sudden onset of upper abdominal pain today. [place] the [place] a theme park, came home and suddenly felt unwell. Has had multiple episodes of vomiting, is vomiting in exam room. She denies recent fever/chills, congestion, sore throat, cough, chest pain, change in bowel or bladder function. No known recent ill contacts. No known inciting foods, no recent alcohol intake. She does have a history of pancreatitis, says that this feels similar. Last episode 2 years ago. Currently on methadone, took a dose today. Related Data Home Medications ?Medication ?Instructions ?Recorded ?Confirmed epinephrine 0.3 mg/0.3 mL 0.3 mg (0.3 mL) IM ONCE #1 e a 07/30/20 03/15/25 injection, auto-injector fish oil-dha-epa See Rx Instructions PO DI RECTED 12/30/23 03/15/25 multivitamin 1 tab PO DAILY 12/30/2304/01 Held on 03/15/25. Instructions: Pt Stopped/Never Started pantoprazole 40 mg tablet,delayed See Rx Instructions .Route 12/30/23 03/15/25 release .COMPLEX PRN Held on 03/15/25. Instructions: Pt Stopped/Never Started methadone 10 mg/5 mL oral solution 170 mg PO DAILY 03/15/25 sertraline 25 mg tablet 25 mg PO DAILY #90 tabs 08/0903/15/25 Held on 03/15/25. Instructions: Pt Stopped/Never Started levothyroxine 137 mcg tablet 137 mcg PO DAILY #90 tabs 01/10/25 03/15/25 Previous Rx's ?Medication ?Instructions ?Recorded epinephrine 0.3 mg/0.3 mL 0.3 mg (0.3 mL) IM ONCE #1 e a 07/30/20 injection, auto-injector sertraline 25 mg tablet 25 mg PO DAILY #90 tabs 08/09 09/01 Held on 03/15/25. Instructions: Pt Stopped/Never Started levothyroxine 137 mcg tablet 137 mcg PO DAILY #90 tabs 01/10/25 Allergies Allergy/AdvReac Type Severity Reaction Status Date / Time venom-honey bee (bee venom Allergy Severe ANAPHYLAXSI Verified 03/15/25 20:10 (honey bee)) S hymenoptera allergenic AdvReac Severe Anaphylaxis Uncoded 03/15/25 20:10 extract General Stated Complaint: Abd Prob NAKUL: 3 Exam Narrative Exam Narrative: General Appearance: Appears in distress, comfortable, vomiting during exam Vital signs: Within normal limits. Skin: Warm and dry, no rash. Respiratory: Easy work of breathing, able to speak in full sentences GI: Abdomen is soft, nondistended, mild tenderness to palpation upper abdomen. Hyperactive bowel sounds. No CVA tenderness Psychiatric: Normal. Course Vital Signs Vital signs: Vital Signs Temperature 36.1 C L 03/15/25 20:07 Pulse 91 H 03/15/25 20:07 Respiratory Rate 26 H 03/15/25 20:07 Blood Pressure 180/107 H 03/15/25 20:07 Pulse Oximetry 100 03/15/25 20:07 Temperature 36.1 C L 03/15/25 20:27 Temperature Source Oral 03/15/25 20:27 Pulse 91 H 03/15/25 20:27 Respiratory Rate 26 H 03/15/25 20:27 Blood Pressure 180/107 H 03/15/25 20:27 Blood Pressure Position Sitting 03/15/25 20:27 Pulse Oximetry 100 03/15/25 20:27 Oxygen Delivery Method Room Air 03/15/25 20:27 Oxygen Flow Rate 0 03/15/25 20:27 Lab/Test Results Lab/Test Results: Laboratory Tests Range/Units 03/15/25 03/15/25 20:45 20:55 WBC (4.4-10.8) 10^3/uL 8.27 RBC (3.93-5.22) 10^6/uL 4.73 Hgb (11.2-15.7) g/dL 14.3 Hct (36.0-46.0) % 42.3 MCV (80-95) fL 89 MCH (27.0-33.0) pg 30.2 MCHC (32.0-36.0) % 33.8 RDW (11.7-14.6) % 11.9 Plt Count (130-400) 10^3/uL 280 MPV (8.0-11.0) fL 9.8 Immature Gran % % 0.5 Neutrophils % % 55.1 Lymphocytes % % 34.5 Monocytes % % 4.8 Eosinophils % % 4.7 Basophils % % 0.4 Nucleated RBC % (0.0-0.3) % 0.0 Absolute Neutrophils (1.2-6.7) 10^3/uL 4.56 Absolute Lymphocytes (1.2-3.4) 10^3/uL 2.85 Absolute Monocytes (0.1-0.8) 10^3/uL 0.40 Absolute Eosinophils (0.0-0.7) 10^3/uL 0.39 Absolute Basophils (0.0-0.2) 10^3/uL 0.03 Urine Color (Yellow) Yellow Urine Clarity (Clear) Clear Urine pH (5-8) 7.0 Ur Specific Jones (1.005-1.025) 1.025 Urine Protein (Neg-Trace) mg/dL Negative Urine Ketones (Negative) mg/dL Negative Urine Blood (Negative) Negative Urine Nitrite (Negative) Negative Urine Bilirubin (Negative) Negative Urine Urobilinogen (Up to 0.2) mg/dL 0.2 Ur Leukocyte Esterase (Negative) Negative Urine Glucose (Negative) mg/dL Negative POC- Test(urine) Negative Medical Decision Making Initial Assessment: 40-year-old female with sudden onset upper abdominal pain. History of pancreatitis, last episode 2 years ago. Currently on methadone. Differential Diagnosis includes but is not limited to: Pancreatitis, gastritis, viral gastroenteritis, bowel obstruction, hepatitis, diverticulitis, kidney stone, ectopic ED Course: - Administered antinausea medication, pain relief with Toradol, and fluids. Reports full improvement of symptoms, is able to sip on saud patito on discharge I independently interpreted the following tests: Urine hCG negative. CMP notable for elevated LFTs. CBC, T4, and UA all unremarkable CT abdomen/pelvis performed, notable for collapsing cysts in the left ovary, moderate amount of free fluid present within the pelvis, enhancement and mild thickening of gastric wall consistent with mild gastritis, moderate/severe constipation. Reviewed findings with patient, she is aware and will follow-up with PCP. They are also lung abnormalities consistent with small airway diseases, patient reports she has sarcoidosis that has been noted previously and this is not a new finding for her. No red flags concerning for surgical abdomen requiring hospital admission or emergent specialist consult Final Assessment: Acute gastritis, likely viral in origin Clinical Impression: - Nausea/vomiting c/w gastritis - Elevated LFTs - Blood pressure noted to be elevated today -constipation Reviewed discharge instructions with patient, including incidental findings, elevated LFTs, and strong recommendation to follow-up with PCP. She had full improvement of symptoms with medications provided. Educated on red flags indicating need for return to emergency care. Patient consented to the use of [facility] Imaging Data Radiologic Study: Radiologist's impression: PROCEDURE INFORMATION: Exam: CT Abdomen And Pelvis With Contrast Exam date and time: 03/15/2025 10:07 PM Age: 40 years old Clinical indication: Abdominal pain; Generalized; Abd pain TECHNIQUE: Imaging protocol: Computed tomography of the abdomen and pelvis with contrast. Radiation optimization: All CT scans at this facility use at least one of these dose optimization techniques: automated exposure control; mA and/or kV adjustment per patient size (includes targeted exams where dose is matched to clinical indication); or iterative reconstruction. Contrast material: [id number]; Contrast volume: 75 ml; Contrast route: INTRAVENOUS (IV); COMPARISON: CT ABDOMEN PELVIS W 10/04/2023 6:09 PM FINDINGS: Lungs: There is heterogeneous attenuation of the pulmonary parench yma, consistent with air trapping from underlying small airways disease. Scattered mild patchy ground-glass opacities within the lungs. These findings are nonspecific and may represent mild hypoventilatory change,edema, hemorrhage, or an infectious/inflammatory process (acute or chronic). Diaphragm: A small hiatal hernia is present. Liver: There is a diffuse decrease in hepatic parenchymal density, consistent with mild fatty infiltration. There are no focal liver lesions present. Gallbladder and biliary ducts: There is mild intrahepatic biliary dilation. The gallbladder is normal. There is no cholelitiasis, wall thickening or pericholecystic fluid to suggest cholecystitis. Pancreas: The pancreas is normal. Spleen: The spleen is normal. Adrenal glands: The adrenal glands are normal. Kidneys and ureters: The kidneys are normal. Stomach and bowel: There is moderate to severe increased colonic fecal content. The colon is mildly distended. These findings suggest a moderate to severe degree of constipation. Clinical correlation recommended. Enhancement and mild thickening of the gastric wall consider mild gastritis. Appendix: A normal appendix is identified. There is no evidence of distention or periappendiceal inflammation to suggest appendicitis. Intraperitoneal space: Moderate amount of free fluid present within the dependent portion of the pelvis. No evidence of free air within the abdomen. Vasculature: The aorta is unremarkable without evidence of significant atherosclerosis or aneurysmal disease. The peripheral arterial vascular system visualized is unremarkable. The portal venous system visualized is unremarkable. The peripheral venous vascular system visualized is unremarkable. Lymph nodes: Unremarkable. No enlarged lymph nodes. Urinary bladder: The bladder is normal. Reproductive: The uterus is normal. Collapsing cysts present within the left ovary measuring 2.3 cm.The skeletal structures and soft tissues show no evidence of fracture or other acute processes. Rao anisa/joints: See Reproductive finding. Soft tissues: There is a fat-containing umbilical hernia. The extra-abdominal soft tissues are normal. IMPRESSION: 1. There is heterogeneous attenuation of the pulmonary parenchyma, consistent with air trapping from underlying small airways disease. 2. Scattered mild patchy ground-glass opacities within the lungs. These findings are nonspecific and may represent mild hypoventilatory change,edema, hemorrhage, or an infectious/inflammatory process (acute or chronic). 3. Moderate amount of free fluid present within the dependent portion of the pelvis. 4. Enhancement and mild thickening of the gastric wall consider mild gastritis. 5. Moderate to severe constipation. PFSH All Active Problems (Updated 03/16/25 @ 00:20 by Harriet Montelongo) Elevated LFTs (Acute) Constipation (Acute) Gastritis (Acute) Hypertension (Chronic) Hypothyroidism (Chronic) Acute pancreatitis (Acute) Abnormal computerized axial tomography of chest (Acute) Abscess of pancreas (Acute) Opiate addiction (Chronic) Pseudocyst of pancreas (Chronic) Alcoholism (Chronic) GERD (gastroesophageal reflux disease) (Chronic) Fatty liver disease, nonalcoholic (Chronic) CKD (chronic kidney disease) stage 3, GFR 30-59 ml/min (Chronic) Generalized anxiety disorder (Chronic) Medical History (Updated 03/16/25 @ 00:20 by Harriet Montelongo) DVT prophylaxis Gilberto's syndrome Opioid use disorder Methadone through [facility] Major depressive disorder Temporomandibular joint disorder Surgical History (Updated 10/04/23 @ 23:03 by Dino Guzman) History of removal of pancreatic stent History of section (05/28/14) Family History (Updated 01/03/24 @ 15:42 by Saadia Mcgrath) Mother Alcohol abuse Depression Substance abuse Father Alcohol abuse Substance abuse Sister Depression Hypertension Sister Substance abuse Depression Son No problems noted. Son No problems noted. Maternal Grandfather Colon cancer Skin cancer (melanoma) Type 2 diabetes mellitus Heart disease Cancer Maternal Grandmother Heart disease SLE (systemic lupus erythematosus) Osteoporosis Dementia Paternal Grandfather No problems noted. Paternal Grandmother No problems noted. 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 Pets and animals: Yes Pets and animals: cat(s), dog(s), hamster(s) and farm animals Sexually active: Yes Do you think of yourself as: straight/heterosexual Current gender identity: female What is your relationship status?: never How often do you talk on the phone with friends or family?: three or more times per week How often do you get together with friends or relatives?: once per week How often do you attend holiness or muslim services?: 1-3 times per year Do you belong to any clubs or organized social groups?: no Panel score (0-1 are the most socially isolated patients): 1 What type of physical activity do you participate in: none Duration: decline to answer Frequency: decline to answer Eloisa/Mormon: Samaritan Special eloisa needs: No Seatbelt use: always Helmet use: Yes Helmet use: always Drive intox or ride w/intox rickshaw driver: No Firearms in home: No Do you feel safe at home: Yes Do you feel safe in your relationship?: Yes Victim of physical abuse: No Victim of emotional abuse: No Victim of sexual abuse: No Would you like helpful sources: No Additional Social history: Lives in [place] with 9 yo twin boys Female Reproductive History Menstrual control method: natural family planning History History 1 Para Hx # Term Pregnancies Multiple births 1 Hx # Pregnancies Ectopic pregnancies AB induced Hx Number of Living Children 2 AB spontaneous
[2025-03-15 21:15] LABS: TSH (W/Ref FT4) 49.23 uIU/mL (0.36-3.74)
[2025-03-15 21:35] VITALS: BP 150/84; PULSE 61; RESP 18; TEMP 36.4; O2SAT 99
[2025-03-15] MEDS: Omnipaque 350 MG/ML 100 ML BTL 75 ML IJ (22:07)
[2025-03-15] MEDS: Normal Saline - Diluent 50 ML VIAL IJ (22:08)
--- NOTE | 2025-03-15 22:17 | DI.CT_ITS ---
Exam(s) CT ABDOMEN PELVIS W EXAM: CT ABDOMEN PELVIS W CLINICAL HISTORY: abd pain TECHNIQUE: Imaging Protocol: Axial computed tomography images with coronal and sagittal reformatted images were created and reviewed. CONTRAST MATERIAL: Intravenous: Omnipaque 350 Contrast volume:75 mL Oral: No COMPARISON: CT CT ABDOMEN PELVIS W from 08/07/[address] ABDOMEN PELVIS W from 10/04/2023 FINDINGS: ABDOMEN: Lung Bases: There is no focal consolidating infiltrate in the lung bases. Very mild atelectasis is seen. Liver: Normal density. No measurable mass. Portal, Superior Mesenteric, and Splenic Veins: Unremarkable. Gallbladder and Biliary Tract: No radiodense calculus or dilation. Pancreas: Normal density, no abnormal calcifications or inflammatory process. Spleen: Normal. Adrenals: No masses seen. Kidneys: Normal size, contour and axis. No radiodense stones or obstructive uropathy. No masses seen. Abdominal Aorta: Abdominal portion non-dilated. Bowel: No obstruction or bowel wall thickening. There is a large amount of stool throughout the colon suggesting constipation. There is a normal appendix present. Peritoneal Cavity: There is a tiny amount of free fluid adjacent to the left ovary which is likely physiologic. No free air. Lymph Nodes: Within normal limits. Bones: Within normal limits for the patient's age. Soft Tissues: Unremarkable. PELVIS: Bladder: Symmetric distention, no gross wall thickening. Reproductive Organs: There is a 2.2 cm peripherally enhancing cyst on the left ovary consistent with a corpus luteal cyst. Lymph Nodes: Within normal limits. Bones: Within normal limits for the patient's age. IMPRESSION: 1. 2.2 cm left ovarian corpus luteal cyst. Small amount of free fluid adjacent to the left ovary which is likely physiologic. 2. Constipation. 3. The preliminary [facility] report was reviewed. RADIATION DOSE DELIVERED: 539.69mGy.cm Total DLP DATA REPOSITORY: All CT scans at this facility are submitted to the National Radiology Data Registry (NRDR) Dose Index Registry (DIR) with the [employer] (ACR). RADIATION OPTIMIZATION: All CT scans at this facility use at least one of these dose optimization techniques: automated exposure control; mA and/or kV adjustment per patient size (includes targeted exams where dose is matched to clinical indication); or iterative reconstruction.
--- NOTE | 2025-03-15 23:10 | DI.[facility]_ITS ---
PROCEDURE INFORMATION: Exam: CT Abdomen And Pelvis With Contrast Exam date and time: 03/15/2025 10:07 PM Age: 40 years old Clinical indication: Abdominal pain; Generalized; Abd pain TECHNIQUE: Imaging protocol: Computed tomography of the abdomen and pelvis with contrast. Radiation optimization: All CT scans at this facility use at least one of these dose optimization techniques: automated exposure control; mA and/or kV adjustment per patient size (includes targeted exams where dose is matched to clinical indication); or iterative reconstruction. Contrast material: [id number]; Contrast volume: 75 ml; Contrast route: INTRAVENOUS (IV); COMPARISON: CT ABDOMEN PELVIS W 10/04/2023 6:09 PM FINDINGS: Lungs: There is heterogeneous attenuation of the pulmonary parenchyma, consistent with air trapping from underlying small airways disease. Scattered mild patchy ground-glass opacities within the lungs. These findings are nonspecific and may represent mild hypoventilatory change,edema, hemorrhage, or an infectious/inflammatory process (acute or chronic). Diaphragm: A small hiatal hernia is present. Liver: There is a diffuse decrease in hepatic parenchymal density, consistent with mild fatty infiltration. There are no focal liver lesions present. Gallbladder and biliary ducts: There is mild intrahepatic biliary dilation. The gallbladder is normal. There is no cholelitiasis, wall thickening or pericholecystic fluid to suggest cholecystitis. Pancreas: The pancreas is normal. Spleen: The spleen is normal. Adrenal glands: The adrenal glands are normal. Kidneys and ureters: The kidneys are normal. Stomach and bowel: There is moderate to severe increased colonic fecal content. The colon is mildly distended. These findings suggest a moderate to severe degree of constipation. Clinical correlation recommended. Enhancement and mild thickening of the gastric wall consider mild gastritis. Appendix: A normal appendix is identified. There is no evidence of distention or periappendiceal inflammation to suggest appendicitis. Intraperitoneal space: Moderate amount of free fluid present within the dependent portion of the pelvis. No evidence of free air within the abdomen. Vasculature: The aorta is unremarkable without evidence of significant atherosclerosis or aneurysmal disease. The peripheral arterial vascular system visualized is unremarkable. The portal venous system visualized is unremarkable. The peripheral venous vascular system visualized is unremarkable. Lymph nodes: Unremarkable. No enlarged lymph nodes. Urinary bladder: The bladder is normal. Reproductive: The uterus is normal. Collapsing cysts present within the left ovary measuring 2.3 cm.The skeletal structures and soft tissues show no evidence of fracture or other acute processes. Bones/joints: See Reproductive finding. Soft tissues: There is a fat-containing umbilical hernia. The extra-abdominal soft tissues are normal. IMPRESSION: 1. There is heterogeneous attenuation of the pulmonary parenchyma, consistent with air trapping from underlying small airways disease. 2. Scattered mild patchy ground-glass opacities within the lungs. These findings are nonspecific and may represent mild hypoventilatory change,edema, hemorrhage, or an infectious/inflammatory process (acute or chronic). 3. Moderate amount of free fluid present within the dependent portion of the pelvis. 4. Enhancement and mild thickening of the gastric wall consider mild gastritis. 5. Moderate to severe constipation. Dictated and Authenticated by: Prieto Nichols MD. Orderin Jose Manuel Larios MD
== END 2025-03-16 00:30 | disposition home or self-care (01) ==
PROVIDERS: Emergency Provider Nurse Practitioner Family; PCP Nurse Practitioner Family
DX: K59.00 Constipation, unspecified (principal); K52.9 Noninfective gastroenteritis and colitis, unspecified
CPT/HCPCS: 80053; 81025; 83690; 86704; 86709; 86803; 87340; 93005; 96361; 96374; 96375; 99285; 74177; 81003; 83735; 84439; 84443; 85025; 93010; 99284; J1885; J2405; J3490

== ENCOUNTER 2025-05-09 04:19 | Outpatient (CLI) | payer MEDICAID, SELFPAY ==
--- NOTE | 2025-05-09 12:44 | DI.MAMMO_ITS ---
Exam(s) MAMMO SCREENING EXAM: MAMMO SCREENING CLINICAL HISTORY: screening,z12.39. TECHNIQUE: Bilateral full field digital CC and MLO mammographic images were obtained with 3D tomosynthesis and utilizing computer aided detection (CAD). COMPARISON: Prior mammograms were reviewed. FINDINGS: The fibroglandular tissue pattern is moderately dense, this somewhat decreasing the sensitivity of the mammogram for finding hidden underlying lesions. No obvious significant findings in left breast. On the right side there is an abnormal appearing prominent lymph node in the right axilla measuring 2.4 x 2.2 cm. Ultrasound recommended. There are no obvious spiculated masses in the breasts. No malignant-appearing microcalcification groups. There is no significant architectural distortion nor skin thickening-retraction. IMPRESSION: Dense bilateral fibroglandular tissue. Abnormal 2.4 x 2.2 cm nodule in the right axilla. Ultrasound recommended. This should be a complete right breast ultrasound including all 4 quadrants of the right breast and the right axilla. BI-RADS Category 0 - Incomplete: Need additional imaging evaluation Breast Density - Category C - The breast are heterogeneously dense, which may obscure small masses. Breast density Category C or D implies that the patient has dense breast tissue. Dense breast tissue can make it harder to find cancer on a mammogram. Dense breast tissue is also associated with an increased risk of breast cancer. This information about the result of the mammogram report was provided to the patient to raise their awareness. Use this report when you speak with the patient about their risks for breast cancer, which includes their family history. At that time, you may recommend additional screening tests (Ultrasound or MRI) as these tests may add significant information. A negative radiographic report should not delay biopsy if a dominant or clinically suspicious mass is present. Up to ten percent of cancers are not identified on mammography. A negative report may reinforce clinical impression. Adenosis and dense breasts may obscure an underlying neoplasm. False positive reports average 6 to 10%. Patient will receive a letter notifying them of these results.
== END 2025-05-09 04:39 ==
LOC: DI 04:19
PROVIDERS: PCP Nurse Practitioner Family; Visit Provider Nurse Practitioner Family
DX: Z12.31 Encounter for screening mammogram for malignant neoplasm of breast (principal)
CPT/HCPCS: 77063; 77067

== ENCOUNTER 2025-06-26 09:10 | Outpatient (CLI) | payer MEDICAID, SELFPAY ==
[2025-06-26 11:22] LABS: Hemoglobin A1C 5.2 % (<5.7)
[2025-06-26 11:23] LABS: ALT 14 U/L (10-49); AST 18 U/L (<34); Albumin 4.6 g/dL (3.4-5.0); Alkaline Phosphatase 58 U/L (46-116); Anion Gap 5.7 mmol/L (3-11); BUN 18 mg/dL (9-23); Bilirubin, Total 1.00 mg/dL (0.2-1.2); CO2 27.3 mmol/L (20.0-31.0); Calcium 9.1 mg/dL (8.3-10.6); Chloride 109 mmol/L (98-107); Cholesterol 148 mg/dL (<200); Glucose 89 mg/dL (74-106); HDL Cholesterol 52 mg/dL (>40); Potassium 4.2 mmol/L (3.5-5.1); Sodium 142 mmol/L (136-145); Total Protein 7.3 g/dL (5.7-8.2)
[2025-06-26 11:25] LABS: TSH (W/Ref FT4) 5.36 uIU/mL (0.55-4.78)
[2025-06-26 18:41] LABS: HIV-1/2 Ag & Ab Screen Negative (Negative)
[2025-06-26 18:45] LABS: Hepatitis A Antibody IgM Negative (Negative); Hepatitis C Ab w Rflx HCV PCR Negative (Negative)
== END 2025-06-26 09:11 | disposition home or self-care (01) ==
LOC: LBO 09:10
PROVIDERS: PCP Nurse Practitioner Family; Visit Provider Nurse Practitioner Family
DX: Z00.00 Encounter for general adult medical examination without abnormal findings (principal); F11.21 Opioid dependence, in remission; E03.9 Hypothyroidism, unspecified; I10 Essential (primary) hypertension; K76.0 Fatty (change of) liver, not elsewhere classified
CPT/HCPCS: 36415; 80053; 80061; 86704; 86709; 86803; 87340; 87389; 83036; 84439; 84443